=== PATIENT | female | born 1940 | race Caucasian/White ===

== ENCOUNTER 2016-12-06 10:24 | Outpatient (CLI) | payer MEDICARE | END 2016-12-06 10:25 | disposition home or self-care (01) | DX: I10 Essential (primary) hypertension (principal); Z51.81 Encounter for therapeutic drug level monitoring ==

== ENCOUNTER 2018-01-24 09:12 | Outpatient (CLI) | payer MEDICARE | END 2018-01-24 09:13 | disposition critical access hospital (66) | LOC: EMS 09:12 | PROVIDERS: ATTEND Surgery | DX: S01.511A Laceration without foreign body of lip, initial encounter (principal); M25.561 Pain in right knee; X58.XXXA Exposure to other specified factors, initial encounter; Y92.099 Unspecified place in other non-institutional residence as the place of occurrence of the external cause | CPT/HCPCS: A0425; A0429 ==

== ENCOUNTER 2018-01-24 09:29 | Emergency (ER) | payer MEDICARE ==
[2018-01-24] MEDS ORDERED: BUFFERED LIDOCAINE 10 ML SYRINGE SUBQ STA (09:35)
--- NOTE | 2018-01-24 10:00 | ED Physician Documentation ---
PD HPI HEAD INJURY - Stated complaint Stated Complaint: GLF - Chief complaint Chief Complaint: Laceration - History obtained from History obtained from: Patient - History of Present Illness Mechanism of head injury: Fell Where head injury occurred: Home Timing - onset: Today, Unknown Location of injury: Front Associated symptoms: Amnesia. No: Nausea / vomiting, Neck pain, Paresthesias, Seizures, Ear drainage, Nasal drainage Symptoms improve with: Rest Symptoms worsen with: Palpation Contributing factors: No: Anticoagulated Similar symptoms before: Has not had sx before Recently seen: Not recently seen - Additional information Additional information: 78 year-old female living at [facility] with advanced dementia has had a fall today unwitnessed she does have a small abrasion to her right knee and a laceration to her upper lip with some bleeding from her teeth. She does not recall the fall and she denies any headache nausea vomiting or dizziness or neck pain. Review of Systems Unable to obtain: Dementia Constitutional: denies: Fever Ears: denies: Ear pain Nose: denies: Congestion Throat: reports: Dental pain / toothache. denies: Sore throat Cardiac: denies: Chest pain / pressure, Palpitations Respiratory: denies: Dyspnea, Cough GI: denies: Abdominal Pain, Nausea, Vomiting : denies: Dysuria Skin: reports: Abrasion (s) (right knee), Laceration (s) (lip). denies: Rash Musculoskeletal: denies: Neck pain, Back pain, Extremity pain Neurologic: denies: Generalized weakness, Focal weakness, Numbness PD PAST MEDICAL HISTORY - Present Medications Home Medications: Ambulatory Orders Medication Instructions Recorded Confirmed Acetaminophen 500 mg PO Q4HR PRN 01/24/18 01/24/18 Lisinopril 20 mg 01/24/18 Memantine HCl [Namenda] 10 mg BID 01/24/18 01/24/18 amLODIPine [Norvasc] 5 mg 01/24/18 - Allergies Allergies/Adverse Reactions: Allergies Allergy/AdvReac Type Severity Reaction Status Date / Time No Known Drug Allergies Allergy Verified 01/24/18 09:35 PD ED PE NORMAL - Vitals Vital signs reviewed: Yes (hypertensive) - General General: No acute distress, Well developed/nourished - HEENT HEENT: PERRL, EOMI, Ears normal, Moist mucous membranes, Other (There is a small 1.5cm laceration to the right upper lip that does not involve deeper structures. ) - Neck Neck: Supple, no meningeal sign, No bony TTP - Cardiac Cardiac: RRR, No murmur - Respiratory Respiratory: No respiratory distress, Clear bilaterally - Abdomen Abdomen: Soft, Non tender - Back Back: No CVA TTP, No spinal TTP - Derm Derm: Normal color, Warm and dry, No rash - Extremities Extremities: No deformity, No edema, Other (There is an abrasion to the right patella without specific tenderness to the area. There is no effusion and the ligaments are stable to testing. ) - Neuro Neuro: Alert and oriented X 3 Eye Opening: Spontaneous Motor: Obeys Commands Verbal: Confused GCS Score: 14 - Psych Psych: Normal mood, Normal affect Results - Vitals Vitals: Vital Signs - 24 hr 01/24/18 01/24/18 09:32 10:46 Temperature 36.4 C L Heart Rate 76 70 Respiratory 18 16 Rate Blood Pressure 145/97 H 150/95 H O2 Saturation 98 96 Oxygen O2 Source Room air - Labs Labs: Laboratory Tests 01/24/18 10:08 Urine Color YELLOW Urine Clarity CLEAR Urine pH 6.5 Ur Specific [place] 1.010 Urine Protein NEGATIVE Urine Glucose (UA) NEGATIVE Urine Ketones NEGATIVE Urine Occult Blood NEGATIVE Urine Nitrite NEGATIVE Urine Bilirubin NEGATIVE Urine Urobilinogen 0.2 (NORMAL) Ur Leukocyte Esterase TRACE H Urine RBC 0-5 Urine WBC 4-5 Ur Squamous Epith Cells RARE Squamous Urine Bacteria Few Ur Microscopic Review INDICATED Urine Culture Comments INDICATED Procedures - Laceration (location) upper lip Length in cm: 1.5 Wound type: Linear, Clean Neurovascular status: Sensory intact, Motor intact, Vascular intact Anesthesia: Lidocaine 1%, With bicarb Wound Preparation: Hibiclens, Irrigated copiously NS, Wound explored, To the base Skin layer closure: Nylon, Interrupted, Size #-0 - enter number (6-0), Sutures - enter # (3) Other: Patient tolerated well, No complications, Neurovascular intact, Dressing applied Complexity: Simple PD MEDICAL DECISION MAKING - ED course Complexity details: reviewed results, re-evaluated patient, considered differential, other (discussed with nursing home assistant at [facility]) ED course: 78-year-old female with advanced dementia has had an unwitnessed fall she has loosened some of her front teeth and has a small laceration on her upper lip. She is a small abrasion to her right knee. The patient seems unfazed by these injuries with the exception of bleeding and the laceration is closed with good result. The teeth are firmly implanted and I suspect the most that will be required is soft food eating, and follow-up with her dentist. The patient is ambulating in the department without difficulty and has no other specific complaints. The patient returned to [facility] and I got a telephone call from the nursing home assistant there concerned that no imaging procedures were done. It was my opinion at the time the patient was here that imaging procedures were likely unnecessary and these were not done. - Sepsis Event Vital Signs: Vital Signs - 24 hr 01/24/18 01/24/18 09:32 10:46 Temperature 36.4 C L Heart Rate 76 70 Respiratory 18 16 Rate Blood Pressure 145/97 H 150/95 H O2 Saturation 98 96 Oxygen O2 Source Room air Departure - Departure Disposition: 01 Home, Self Care Clinical Impression: Facial laceration Qualifiers: Encounter type: initial encounter Qualified Code(s): S01.81XA - Laceration without foreign body of other part of head, initial encounter Knee abrasion Qualifiers: Encounter type: initial encounter Laterality: right Qualified Code(s): S80.211A - Abrasion, right knee, initial encounter Dental contusion Qualifiers: Encounter type: initial encounter Qualified Code(s): S00.532A - Contusion of oral cavity, initial encounter Instructions: Trauma Dental, ED Laceration Facial Sutr Tape Follow-Up: Basil Phelan MD [Primary Care Provider] - Comments: sutures should be removed in 5 days. Discharge Date/Time: 01/24/18 10:57
[2018-01-24] MEDS ORDERED: TETANUS/DIPHTHERIA/PERTUSSIS 0.5 ML SYRINGE IM ONE (10:03)
[2018-01-24 10:22] LABS: BILIRUBIN,URINE NEGATIVE (NEGATIVE); CLARITY,URINE CLEAR (CLEAR); GLUCOSE, URINE (UA) NEGATIVE (NEGATIVE); KETONES,URINE (UA) NEGATIVE (NEGATIVE); LEUKOCYTE ESTERASE, URINE TRACE (NEGATIVE); NITRITE,URINE NEGATIVE (NEGATIVE); OCCULT BLOOD,URINE NEGATIVE (NEGATIVE); PH,URINE 6.5 PH (5.0-7.5); PROTEIN,URINE NEGATIVE (NEGATIVE); UROBILINOGEN,URINE 0.2 (NORMAL) E.U./dL (NORMAL)
[2018-01-24 10:31] LABS: BACTERIA,URINE Few /HPF (None Seen); RBC,URINE 0-5 /HPF (0-5); SQUAMOUS EPITHELIAL CELL,UR RARE Squamous (<= Few)
[2018-01-24 10:47] VITALS: BP 150/95
== END 2018-01-24 10:57 | disposition home or self-care (01) ==
LOC: EDUNIT# → ED 09:29
DX: S01.81XA Laceration without foreign body of other part of head, initial encounter (principal); S80.211A Abrasion, right knee, initial encounter; S00.532A Contusion of oral cavity, initial encounter; W18.30XA Fall on same level, unspecified, initial encounter; Y92.009 Unspecified place in unspecified non-institutional (private) residence as the place of occurrence of the external cause; F03.90 Unspecified dementia, unspecified severity, without behavioral disturbance, psychotic disturbance, mood disturbance, and anxiety; Z23 Encounter for immunization
CPT/HCPCS: 12011; 81001; 81003; 87086; 90471; 99283

== ENCOUNTER 2019-05-19 09:54 | Outpatient (CLI) | payer MEDICARE | END 2019-05-19 09:55 | disposition critical access hospital (66) | LOC: EMS 09:54 | PROVIDERS: ATTEND Surgery | DX: M25.511 Pain in right shoulder (principal); M54.2 Cervicalgia | CPT/HCPCS: A0425; A0429 ==

== ENCOUNTER 2019-05-19 10:12 | Emergency (ER) | payer MEDICARE ==
--- NOTE | 2019-05-19 10:34 | ED Physician Documentation ---
PD HPI CHEST PAIN - Stated complaint Stated Complaint: R SHOULDER PAIN - Chief complaint Chief Complaint: Cardiac - History obtained from History obtained from: Patient, Caregiver (patient with dementia so not able to give much history; info mainly from caregivers, as conveyed by EMS.) - History of Present Illness Timing - onset: Today (Patient was complaining of left shoulder and left chest pain to staff this morning. She denies any at present here in the ER. She was sent in for concern of heart related pain. There is no fall or injury. She did not have any trouble breathing. No recent cough.) Timing - onset during: Light activity (getting up and dressed this morning) Timing - details: Gradual onset, Now resolved (she denies pain currently) Quality: Aching Location: Substernal, Left shoulder/arm Similar symptoms before: Has not had sx before Review of Systems Unable to obtain: Dementia Constitutional: denies: Fever Throat: denies: Sore throat Respiratory: denies: Cough GI: denies: Vomiting, Diarrhea Skin: denies: Rash PD PAST MEDICAL HISTORY - Past Medical History Cardiovascular: Hypertension Neuro: Dementia - Past Surgical History Past Surgical History: Yes HEENT: Tonsil/Adenoidectomy - Present Medications Home Medications: Ambulatory Orders Medication Instructions Recorded Confirmed Acetaminophen 500 mg PO Q4HR PRN 01/24/18 05/19/19 Lisinopril 20 mg PO DAILY 01/24/18 05/19/19 Memantine HCl [Namenda] 10 mg BID 01/24/18 05/19/19 amLODIPine [Norvasc] 5 mg PO DAILY 01/24/18 05/19/19 Codeine Phosphate/Guaifenesin 5 ml PO DAILY PRN 05/19/19 05/19/19 [Guaifen-Codeine 100-10 mg/5 ml] QUEtiapine [SEROquel] 25 mg PO BID PRN 05/19/19 05/19/19 - Allergies Allergies/Adverse Reactions: Allergies Allergy/AdvReac Type Severity Reaction Status Date / Time No Known Drug Allergies Allergy Verified 01/24/18 09:35 - Social History Does the pt smoke?: No Smoking Status: Never smoker Does the pt drink ETOH?: No Does the pt have substance abuse?: No - Immunizations Immunizations are current?: Yes PD ED PE NORMAL - Vitals Vital signs reviewed: Yes - General General: Alert and oriented X 3, No acute distress, Well developed/nourished - HEENT HEENT: Pharynx benign - Neck Neck: Supple, no meningeal sign, No adenopathy - Cardiac Cardiac: RRR, No murmur - Respiratory Respiratory: Clear bilaterally, Other (no chestwall tenderness) - Abdomen Abdomen: Soft, Non tender - Derm Derm: Normal color, Warm and dry - Extremities Extremities: No tenderness to palpate, Normal ROM s pain, No edema, No calf tenderness / cord - Neuro Neuro: No motor deficit. No: Alert and oriented X 3 (name only, with poor recollection of earlier events, c/w dementia. ) Results - Vitals Vitals: Vital Signs - 24 hr 05/19/19 05/19/19 10:16 12:54 Temperature 36.6 C 36.6 C Heart Rate 75 87 Respiratory 18 18 Rate Blood Pressure 126/90 H 141/93 H O2 Saturation 94 97 Oxygen O2 Source Room air - EKG (time done) 10:37 Rate: Rate (enter#) (71) Rhythm: NSR [place]: Normal Intervals: Normal [place] QRS: Normal Ischemia: Normal ST segments. No: ST elevation c/w ischemia, ST depression - Labs Labs: Laboratory Tests 05/19/19 05/19/19 05/19/19 10:50 10:50 10:50 WBC 5.5 RBC 3.76 L Hgb 11.6 L Hct 36.3 L MCV 96.5 MCH 30.9 MCHC 32.0 RDW 14.3 Plt Count 268 MPV 10.2 Neut # (Auto) 3.5 Lymph # (Auto) 1.2 L [place] # (Auto) 0.6 Eos # (Auto) 0.2 Baso # (Auto) 0.0 Absolute Nucleated RBC 0.00 Nucleated RBC % 0.0 Sodium 138 Potassium 3.8 Chloride 103 Carbon Dioxide 27 Anion Gap 8.0 BUN 12 Creatinine 1.1 H Estimated GFR (MDRD) 48 L Glucose 91 Calcium 9.0 Magnesium 2.0 Total Bilirubin 0.7 AST 19 ALT 14 Alkaline Phosphatase 65 Troponin I High Sens 2.9 Total Protein 7.2 Albumin 3.9 Globulin 3.3 Albumin/Globulin Ratio 1.2 Lipase 34 - Rads (name of study) chest xray Radiology: Prelim report reviewed, See rad report (no acute process) PD MEDICAL DECISION MAKING - ED course Complexity details: reviewed results, considered differential (no chest pain now and her dementia prohibits her giving character of the pain this morning. Tests are okay. No signs of significant process. ), d/w patient Departure - Departure Disposition: 01 Home, Self Care Clinical Impression: Shoulder pain, acute Qualifiers: Laterality: left Qualified Code(s): M25.512 - Pain in left shoulder Clinical Impression: (Ruled Out): Myocardial infarction Condition: Stable Record reviewed to determine appropriate education?: Yes Instructions: ED Chest Pain Atypical Unkn Cause Comments: No signs of heart or lung problems causing your discomfort this morning. It may be muscular pain. Use Tylenol 500 mg every 6 hours if needed for pains. Follow-up with your primary care if recurring or continued over the next several days or other symptoms develop as well. Discharge Date/Time: 05/19/19 15:08
[2019-05-19 10:56] LABS: BASOPHILS % (AUTO) 0.4 %; EOSINOPHILS # (AUTO) 0.2 10^3/uL (0.0-0.7); EOSINOPHILS % (AUTO) 3.7 %; HGB - HEMOGLOBIN 11.6 g/dL (12.0-16.0); LYMPHOCYTES # (AUTO) 1.2 10^3/uL (1.5-3.5); LYMPHOCYTES % (AUTO) 21.8 %; MEAN CORPUSCULAR HEMOGLOBIN 30.9 pg (27.0-31.0); MEAN CORPUSCULAR VOLUME 96.5 fL (81.0-99.0); MEAN PLATELET VOLUME 10.2 fL (7.9-10.8); MONOCYTES # (AUTO) 0.6 10^3/uL (0.0-1.0); MONOCYTES % (AUTO) 10.8 %; NEUTROPHILS # (AUTO) 3.5 10^3/uL (1.5-6.6); NEUTROPHILS % (AUTO) 63.3 %; PLT - PLATELET COUNT 268 10^3/uL (130-450); RED BLOOD COUNT 3.76 10^6/uL (4.20-5.40); RED CELL DISTRIBUTION WIDTH 14.3 % (12.0-15.0); WHITE BLOOD COUNT 5.5 x10^3/uL (4.8-10.8)
[2019-05-19 11:09] LABS: ALBUMIN 3.9 g/dL (3.2-5.5); ALBUMIN/GLOBULIN RATIO 1.2 (1.0-2.2); BILIRUBIN,TOTAL 0.7 mg/dL (0.2-1.0); CREATININE 1.1 mg/dL (0.4-1.0); TOTAL PROTEIN 7.2 g/dL (6.7-8.2)
--- NOTE | 2019-05-19 11:50 | XRAY Report ---
Reason: chest pain Procedure Date: 05/19/2019 Accession Number: [id number] / [id number] Procedure: XR - Chest 1 View X-Ray CPT Code: 96932 FULL RESULT: EXAM: CHEST RADIOGRAPHY EXAM DATE: 05/19/2019 11:05 AM. CLINICAL HISTORY: Right shoulder pain. Chest pain. COMPARISON: None. TECHNIQUE: 1 view. FINDINGS: Lungs/Pleura: No focal opacities evident. No pleural effusion. No pneumothorax. Mediastinum: Within exam limitations, the cardiomediastinal contour is normal. Other: Lobulated appearance to the hemidiaphragms is seen likely due to underlying eventration. IMPRESSION: No acute cardiopulmonary abnormality demonstrated. RADIA
[2019-05-19 12:55] VITALS: BP 141/93
== END 2019-05-19 15:08 | disposition home or self-care (01) ==
LOC: EDUNIT# → ED 10:12
DX: M25.512 Pain in left shoulder (principal); R07.89 Other chest pain; I10 Essential (primary) hypertension; F03.90 Unspecified dementia, unspecified severity, without behavioral disturbance, psychotic disturbance, mood disturbance, and anxiety
CPT/HCPCS: 36415; 71045; 80053; 83690; 83735; 84484; 85025; 93005; 99284

== ENCOUNTER 2019-07-12 07:00 | Outpatient (CLI) | payer MEDICARE | END 2019-07-12 23:59 | disposition home or self-care (01) | LOC: LAB.R 07:00 | PROVIDERS: ATTEND Family Medicine | DX: R82.81 Pyuria (principal) | CPT/HCPCS: 87086; 87181 ==

== ENCOUNTER 2019-07-12 09:19 | Outpatient (CLI) | payer MEDICARE ==
[2019-07-12 13:20] LABS: CALCIUM 9.3 mg/dL (8.5-10.3); MAGNESIUM 2.1 mg/dL (1.7-2.8)
== END 2019-07-12 23:59 | disposition home or self-care (01) ==
LOC: LAB.WCP 09:19
PROVIDERS: ATTEND Family Medicine
DX: R82.81 Pyuria (principal); R45.1 Restlessness and agitation; F03.90 Unspecified dementia, unspecified severity, without behavioral disturbance, psychotic disturbance, mood disturbance, and anxiety
CPT/HCPCS: 36415; 80048; 82607; 83735; 83921; 84443; 87086; 87181

== ENCOUNTER 2020-06-11 19:13 | Outpatient (CLI) | payer MEDICARE | END 2020-06-11 19:14 | disposition critical access hospital (66) | LOC: EMS 19:13 | PROVIDERS: ATTEND Surgery | DX: M25.552 Pain in left hip (principal); W18.39XA Other fall on same level, initial encounter; Y92.098 Other place in other non-institutional residence as the place of occurrence of the external cause | CPT/HCPCS: A0425; A0429 ==

== ENCOUNTER 2020-06-11 19:29 | Inpatient (IN) | payer MEDICARE ==
[2020-06-11] MEDS ORDERED: ACETAMINOPHEN 325 MG TABLET PO STA (19:54)
--- NOTE | 2020-06-11 20:04 | ED Physician Documentation ---
History of Present Illness - Stated complaint Stated Complaint: GLF/ L HIP PX/ FEVER - Chief complaint Chief Complaint: Fever - History obtained from History obtained from: EMS - History of Present Illness Timing: Prior to arrival - Additonal information Additional information: 80-year-old female is brought into the emergency department via EMS from [facility] where she was noted to have a fall this afternoon onto the left hip. She has also developed a new fever of 99.5 at the care facility today. History is difficult to obtain from the patient she has baseline dementia and is not able to appropriately answer questions. On exam in the room she has some guarding with abdominal palpation. She also grabs at the left hip and thigh when the leg is rotated. There is no shortening of the leg. Past medical history includes dementia, hypertension Patient has a POLST form that indicates she is a DNAR Patient is not anticoagulated; no hx of history of atrial fibrillation Review of Systems Unable to obtain: Dementia Constitutional: reports: Fever Musculoskeletal: reports: Extremity pain (left hip/leg), Joint pain PD PAST MEDICAL HISTORY - Past Medical History Past Medical History: Yes Cardiovascular: Hypertension Neuro: Dementia - Past Surgical History Past Surgical History: Yes HEENT: Tonsil/Adenoidectomy - Present Medications Home Medications: Ambulatory Orders Medication Instructions Recorded Confirmed Acetaminophen 500 mg PO Q4HR PRN 01/24/18 05/19/19 Memantine HCl [Namenda] 10 mg BID 01/24/18 05/19/19 amLODIPine [Norvasc] 5 mg PO DAILY 01/24/18 05/19/19 lisinopriL [Lisinopril] 20 mg PO DAILY 01/24/18 05/19/19 Codeine Phosphate/Guaifenesin 5 ml PO DAILY PRN 05/19/19 05/19/19 [Guaifen-Codeine 100-10 mg/5 ml] QUEtiapine [SEROquel] 25 mg PO BID PRN 05/19/19 05/19/19 - Allergies Allergies/Adverse Reactions: Allergies Allergy/AdvReac Type Severity Reaction Status Date / Time No Known Drug Allergies Allergy Verified 06/11/20 19:53 - Social History Does the pt smoke?: No Smoking Status: Never smoker Does the pt drink ETOH?: No Does the pt have substance abuse?: No - Immunizations Immunizations are current?: Yes - POLST Patient has POLST: Yes PD ED PE EXPANDED - General General: No acute distress, Other (quiet, but allows limited evaluation and touching) - HEENT HEENT: Atraumatic, PERRL, EOMI, Moist mucous membranes - Eyes Eyes: PERRL - Neck Neck: Supple w/out meningeal sx, No tenderness - Cardiac Cardiac: Irregularly irregular, Murmur Present, Radial strong equal, Cap refill < 2 sec. No: Pedal strong equal (1+ distally) - Respiratory Respiratory: Clear to ausultation mejia. No: Distress, Labored - Abdomen Abdomen: Normal Bowel sounds. No: Tender to palpation (Generalized abdominal tenderness with guarding. No rebound. Nonfocal) - Back Back: Normal exam. No: Vertebral tenderness - Extremities Extremities: Left hip (Pain with both internal and external rotation of the hip. Patient is grabbing at the left thigh and leg with any movement. No obvious shortening or swelling.) - Neuro Neuro: Confused, Normal speech - GCS Eye Opening: To Voice Motor: Localizes to Pain Verbal: Confused Total: 12 Results - Vitals Vitals: Vital Signs - 24 hr 06/11/20 06/11/20 19:35 21:07 Temperature 37.1 C Heart Rate 99 99 Respiratory 22 24 Rate Blood Pressure 158/89 H 174/103 H O2 Saturation 98 100 Oxygen O2 Source Room air - EKG (time done) 204 Rate: Rate (enter#) (95) Rhythm: Atrial flutter, Atrial fibrillation [place]: Normal Intervals: Prolonged QT QRS: Normal Compare to prior EKG: Changed from prior EKG (previous showed NSR) - Labs Labs: Laboratory Tests 06/11/20 06/11/20 06/11/20 19:45 19:45 19:45 WBC 9.5 RBC 3.94 L Hgb 12.7 Hct 37.1 MCV 94.2 MCH 32.2 H MCHC 34.2 RDW 13.9 Plt Count 228 MPV 10.7 Neut # (Auto) 7.3 H Lymph # (Auto) 1.1 L [place] # (Auto) 1.0 Eos # (Auto) 0.0 Baso # (Auto) 0.0 Absolute Nucleated RBC 0.00 Nucleated RBC % 0.0 Sodium 134 L Potassium 3.5 Chloride 94 L Carbon Dioxide 22 Anion Gap 18.0 H BUN 16 Creatinine 1.2 H Estimated GFR (MDRD) 43 L Glucose 127 H Lactic Acid 2.2 Calcium 9.2 Total Bilirubin 0.7 AST 29 ALT 19 Alkaline Phosphatase 68 Troponin I High Sens Total Protein 7.8 Albumin 4.2 Globulin 3.6 Albumin/Globulin Ratio 1.2 Urine Color Urine Clarity Urine pH Ur Specific [place] Urine Protein Urine Glucose (UA) Urine Ketones Urine Occult Blood Urine Nitrite Urine Bilirubin Urine Urobilinogen Ur Leukocyte Esterase Urine RBC Urine WBC Ur Squamous Epith Cells Urine Bacteria Urine Culture Comments 06/11/20 06/11/20 19:45 20:10 WBC RBC Hgb Hct MCV MCH MCHC RDW Plt Count MPV Neut # (Auto) Lymph # (Auto) [place] # (Auto) Eos # (Auto) Baso # (Auto) Absolute Nucleated RBC Nucleated RBC % Sodium Potassium Chloride Carbon Dioxide Anion Gap BUN Creatinine Estimated GFR (MDRD) Glucose Lactic Acid Calcium Total Bilirubin AST ALT Alkaline Phosphatase Troponin I High Sens 10.5 Total Protein Albumin Globulin Albumin/Globulin Ratio Urine Color YELLOW Urine Clarity CLEAR Urine pH 6.5 Ur Specific [place] 1.025 Urine Protein NEGATIVE Urine Glucose (UA) NEGATIVE Urine Ketones 15 H Urine Occult Blood TRACE-INTA Urine Nitrite NEGATIVE Urine Bilirubin NEGATIVE Urine Urobilinogen 0.2 (NORMAL) Ur Leukocyte Esterase NEGATIVE Urine RBC 0-5 Urine WBC 0-3 Ur Squamous Epith Cells RARE Squamous Urine Bacteria None Seen Urine Culture Comments NOT INDICATED - Rads (name of study) femur Radiology: Final report received (Probable impacted left femoral neck fracture which is incompletely characterized) cxr Radiology: Final report received (No acute cardiopulmonary findings) CT abd Radiology: Final report received (Impacted angulated fracture of the left femoral neck. No acute intra-abdominal findings. Normal appendix. Mild aortic atherosclerosis. Probable atelectasis at the lung bases although aspiration infection cannot be excluded) PD MEDICAL DECISION MAKING - ED course Complexity details: reviewed results, re-evaluated patient, considered differential, d/w patient ED course: 80-year-old female was brought into the emergency department from her care facility for evaluation of fever as well as a new fall this afternoon where she is guarding her abdomen and left hip. She is a DO NOT RESUSCITATE. She is demented at baseline therefore history is difficult to obtain. Not anticoagulated. - X-ray of the left femur does show an impacted angulated left femur fracture. I have called on-call orthopedic Dr. Tadeo Rodriguez who agrees to see and evaluate the patient in the a.m. for surgical evaluation. He does request patient remain n.p.o. overnight. However given the history of dementia hypertension and new atrial fib flutter he is requesting medical hospitalist to admit. - 2124: I spoke with Dr. Navarro [facility] hospitalist who is agreed to bring the patient in for further evaluation and management of her hypertension, diabetes as well as fib flutter. Departure - Departure Disposition: 66 [facility] DC/Xfer Clinical Impression: Closed left femoral fracture Qualifiers: Encounter type: initial encounter Femur location: other head and neck Qualified Code(s): S72.092A - Other fracture of head and neck of left femur, initial encounter for closed fracture Dementia Qualifiers: Dementia type: unspecified type Dementia behavioral disturbance: without behavioral disturbance Qualified Code(s): F03.90 - Unspecified dementia without behavioral disturbance Atrial fibrillation Qualifiers: Atrial fibrillation type: unspecified Qualified Code(s): I48.91 - Unspecified atrial fibrillation
[2020-06-11 20:05] LABS: BASOPHILS % (AUTO) 0.2 %; HGB - HEMOGLOBIN 12.7 g/dL (12.0-16.0); LYMPHOCYTES # (AUTO) 1.1 10^3/uL (1.5-3.5); LYMPHOCYTES % (AUTO) 11.6 %; MEAN CORPUSCULAR HEMOGLOBIN 32.2 pg (27.0-31.0); MEAN CORPUSCULAR HGB CONC 34.2 g/dL (32.0-36.0); MEAN CORPUSCULAR VOLUME 94.2 fL (81.0-99.0); MEAN PLATELET VOLUME 10.7 fL (7.9-10.8); NEUTROPHILS # (AUTO) 7.3 10^3/uL (1.5-6.6); NEUTROPHILS % (AUTO) 76.7 %; PLT - PLATELET COUNT 228 10^3/uL (130-450); RED BLOOD COUNT 3.94 10^6/uL (4.20-5.40); RED CELL DISTRIBUTION WIDTH 13.9 % (12.0-15.0); WHITE BLOOD COUNT 9.5 x10^3/uL (4.8-10.8)
[2020-06-11 20:14] LABS: ALBUMIN 4.2 g/dL (3.2-5.5); ALBUMIN/GLOBULIN RATIO 1.2 (1.0-2.2); BILIRUBIN,TOTAL 0.7 mg/dL (0.2-1.0); CALCIUM 9.2 mg/dL (8.5-10.3); CREATININE 1.2 mg/dL (0.4-1.0); TOTAL PROTEIN 7.8 g/dL (6.7-8.2)
[2020-06-11 20:36] LABS: BILIRUBIN,URINE NEGATIVE (NEGATIVE); GLUCOSE, URINE (UA) NEGATIVE (NEGATIVE); KETONES,URINE (UA) 15 mg/dL (NEGATIVE); LEUKOCYTE ESTERASE, URINE NEGATIVE (NEGATIVE); NITRITE,URINE NEGATIVE (NEGATIVE); OCCULT BLOOD,URINE TRACE-INTA (NEGATIVE); PH,URINE 6.5 PH (5.0-7.5); PROTEIN,URINE NEGATIVE (NEGATIVE); UROBILINOGEN,URINE 0.2 (NORMAL) E.U./dL (NORMAL)
--- NOTE | 2020-06-11 20:44 | XRAY Report ---
PROCEDURE: Femur 2V LT INDICATIONS: fall; r/o fx TECHNIQUE: 2 views of the femur were acquired. COMPARISON: None. FINDINGS: Bones: There is likely an impacted fracture of the left femoral neck which is incompletely characteri zed given patient positioning. The femoral diaphysis of the distal femur are intact. Soft tissues: No suspicious soft tissue calcifications or masses. IMPRESSION: Probable impacted left femoral neck fracture which is incompletely characterized. Reviewed by: Janis Astorga MD on 06/11/2020 8:43 PM PST Approved by: Janis Astorga MD on 06/11/2020 8:43 PM PST Station ID: [id number]
[2020-06-11] MEDS ORDERED: IOVERSOL 320 100 ML VIAL IVP ONE ×2 (20:45→21:13)
--- NOTE | 2020-06-11 20:45 | XRAY Report ---
PROCEDURE: Chest 1 View X-Ray INDICATIONS: chest pain TECHNIQUE: One view of the chest was acquired. COMPARISON: Single view the chest dated 05/19/2019 FINDINGS: Surgical changes and devices: None. Lungs and pleura: No pleural effusions or pneumothorax. Lungs are clear. Mediastinum: Mediastinal contours appear normal. Heart size is normal. Bones and chest wall: No suspicious bony lesions. Overlying soft tissues appear unremarkable. IMPRESSION: No acute cardiopulmonary findings. Reviewed by: Janis Astorga MD on 06/11/2020 8:43 PM PST Approved by: Janis Astorga MD on 06/11/2020 8:43 PM [facility] Station ID: [id number]
[2020-06-11 21:06] LABS: BACTERIA,URINE None Seen /HPF (None Seen); CLARITY,URINE CLEAR (CLEAR); RBC,URINE 0-5 /HPF (0-5); SQUAMOUS EPITHELIAL CELL,UR RARE Squamous (<= Few)
--- NOTE | 2020-06-11 21:16 | CT Report ---
PROCEDURE: Abdomen/Pelvis W INDICATIONS: fever; abdomianl pain CONTRAST: IV CONTRAST: Optiray 320 ml: 80 PO CONTRAST: *NO PO CONTRAST TECHNIQUE: After the administration of intravenous contrast, 5 mm thick sections acquired from the diaphragms to the symphysis. 5 mm thick coronal and sagittal reformats were acquired. For radiation dose reducti on, the following was used: automated exposure control, adjustment of mA and/or kV according to latosha ent size. COMPARISON: None. FINDINGS: Image quality: Excellent. ABDOMEN: Lung bases: Atelectasis is present in the dependent lungs bilaterally. No pleural effusion. Heart is mildly enlarged. Solid organs: Liver and spleen are normal in size and enhancement. Gallbladder is unremarkable Jluis iary system is non dilated. Pancreas enhances normally. No adrenal nodules. Kidneys demonstrate no rmal size and enhancement, without hydronephrosis. A low density cyst is present within the midpole of the right kidney. Peritoneum and bowel: Bowel loops demonstrate normal wall thickness and caliber. The appendix is thi n-walled and gas-filled. There are scattered diverticular outpouchings throughout the sigmoid colon. No mucosal thickening or pericolonic fat stranding. No free fluid or air. Nodes and vessels: No retroperitoneal or mesenteric adenopathy by size criteria. Aorta and inferior vena cava are normal in size. Scattered atheromatous calcifications are noted throughout the abdomi nal aorta. Miscellaneous: No ventral hernias. PELVIS: Genitourinary: Bladder wall thickness is normal. Miscellaneous: No inguinal hernias or adenopathy. Bones: There is an impacted, angulated fracture of the left femoral neck. No other fractures or dislo cations. Severe degenerative changes are present throughout the lumbar spine. No compression deformit ies. IMPRESSION: 1. Impacted angulated fracture of the left femoral neck. 2. No acute intra-abdominal findings. Normal appendix. 3. Mild aortic atherosclerosis. 4. Probable atelectasis at the lung bases although aspiration/infection cannot be excluded. Reviewed by: Janis Astorga MD on 06/11/2020 9:14 PM PST Approved by: Janis Astorga MD on 06/11/2020 9:14 PM PST Station ID: [id number]
[2020-06-11] MEDS ORDERED: ONDANSETRON ODT 4 MG TABLET TL PRN (21:23)
[2020-06-11] MEDS ORDERED: MORPHINE 2 MG/ML CARPUJECT IVP PRN (21:23)
[2020-06-11] MEDS ORDERED: ACETAMINOPHEN 325 MG TABLET PO PRN (21:23)
[2020-06-11] MEDS ORDERED: ONDANSETRON 4 MG/2 ML VIAL IVP PRN ×2 (21:23→21:43)
[2020-06-11] MEDS ORDERED: oxyCODONE 5 MG TABLET PO PRN ×2 (21:23→21:43)
--- NOTE | 2020-06-11 21:28 | HISTORY & PHYSICAL EXAMINATION ---
Chief Complaint - Chief Complaint Chief Complaint: Left leg pain History of Present Illness - Admitted From Admitted From:: [facility] - History Obtained From Records Reviewed: Yes History obtained from: ER Physician, Son (Richard), EMR Exam Limitations: Patient has dementia and is unable to provide a history. - History of Present Illness HPI Comment/Other: This is a 80-year-old female with a past medical history significant for advanced dementia, hypertension who presents today from [facility] memory care unit after she had a fall this afternoon as well as a low-grade temperature of 99.5F. History is obtained from the emergency department provider, EMR and the patient's son. The patient has advanced dementia and is unable to provide a history. The patient's son, Richard, lives in [place] but he was able to see the patient last week. He states she has had dementia for a few years now and has had a rapid decline. He states that she has been more sleepy over the past week or so and today he was informed by [facility] that she fell this afternoon. He states that at baseline, his mother will recognize him and the family but she is not able to participate in a meaningful conversation like she has been in the past. She has very poor memory and will forget things after 10 seconds. He does not believe that she knows where she lives and she deftly does not know the year or month. He reports she may have had a mini stroke a few years ago otherwise is pretty healthy except for dementia and hypertension. He does not believe that she has any history of coronary artery disease, diabetes, strokes. She has never complained of chest pain or dyspnea. He states she ambulates independently and is pretty active from a physical standpoint. She does have a POLST form which states that she is a DNR with limited interventions and focus on comfort. He confirms that she is a DNR. Patient does complain of left leg pain and will grimace and shout out in pain whenever her left lower extremity is examined. He has not answer any of my other questions and is unable to provide a meaningful history. In the emergency department, she is found to be afebrile temperature of 37.1 C. Her heart rate was in the 90s. Her blood pressure was 158/89. She was tachypneic with a respiratory rate of 22 and saturating 98% on room air. Her labs are significant for an anion gap of 18 and a creatinine of 1.2. Lactic acid was 2.2. Troponin was within normal limits. Urinalysis was unremarkable. Left hip x-rays was concerning for a left femoral neck fracture. This was confirmed on CT of the abdomen and pelvis. This was discussed with orthopedic surgery who recommended admission and therefore medicine was consulted. History - Past Medical History Cardiovascular: reports: Hypertension Neuro: reports: Dementia MRSA Hx?: No - Past Surgical History HEENT: reports: Tonsil/Adenoidectomy - Family & Social History Family History Comment/Other: Unable to obtain family history due to the patient's dementia. Living arrangement: Assisted living Social History Notes: Patient resides at [facility]. Her son Richard is the POA. - POLST Patient has POLST: Yes POLST Status: DNR Meds/Allgy - Home Medications Home Medications: Ambulatory Orders Medication Instructions Recorded Confirmed Acetaminophen 500 mg PO Q4HR PRN 01/24/18 05/19/19 Memantine HCl [Namenda] 10 mg BID 01/24/18 05/19/19 amLODIPine [Norvasc] 5 mg PO DAILY 01/24/18 05/19/19 lisinopriL [Lisinopril] 20 mg PO DAILY 01/24/18 05/19/19 Codeine Phosphate/Guaifenesin 5 ml PO DAILY PRN 05/19/19 05/19/19 [Guaifen-Codeine 100-10 mg/5 ml] QUEtiapine [SEROquel] 25 mg PO BID PRN 05/19/19 05/19/19 - Allergies Allergies/Adverse Reactions: Allergies Allergy/AdvReac Type Severity Reaction Status Date / Time No Known Drug Allergies Allergy Verified 06/11/20 19:53 Review of Systems - Musculoskeletal Musculoskeletal: reports: Limited range of motion, Joint pain - All Other Systems All Other Systems: reports: Other (Unable to obtain review of systems due to her advanced dementia.) Prior Level of Functionality: She resides at [facility] due to her advanced dementia. She ambulates independently without any trust administrative assistant devices per her son. Exam - Vital Signs Vital Signs: Vital Signs x48h Temp Pulse Resp BP Pulse Ox 06/11/20 21:07 99 24 174/103 H 100 06/11/20 19:35 37.1 C 99 22 158/89 H 98 - Physical Exam General Appearance: positive: Mild distress, Lethargic, Other (Appears comfortable in bed with her eyes closed. She will answer occasional questions but will keep her eyes closed the whole time. She will grimace in pain and open her eyes when her left lower extremity is examined.) Eyes Bilateral: positive: Normal inspection, Conjunctivae nml ENT: positive: ENT inspection nml Neck: positive: Nml inspection Respiratory: positive: No respiratory distress. negative: Wheezes, Rales Cardiovascular: positive: Regular rate & rhythm, Extrasystoles. negative: Ta chycardia, Bradycardia, Systolic murmur Abdomen: positive: Non-tender, No distention. negative: Tenderness Skin: positive: Warm, Dry Extremities: positive: No pedal edema, Other (Tender to palpation over the medial aspect of the left hip. No ecchymosis or edema. Left lower extremity is externally rotated.) Neurologic/Psychiatric: positive: Disoriented to person, Other (No focal deficits on exam.). negative: Disoriented to place, Disoriented to time, Facial droop, Slurred/abnml speech Conclusion/Plan - Problem List (1) Fracture of femoral neck, left, closed Conclusion/Plan: This is evident on imaging and occurred after a fall this afternoon. We will make her n.p.o. at midnight for surgical intervention tomorrow. I did discuss with the son given she is a DNR with limited interventions regarding the need for surgical intervention. He would like to discuss with the surgeon and family before definitively proceeding with surgery. Pain control with morphine and Toradol as needed. She will need PT and OT postoperatively. Social work consult for disposition planning. Qualifiers: Encounter type: initial encounter Qualified Code(s): S72.002A - Fracture of unspecified part of neck of left femur, initial encounter for closed fracture (2) Preop examination Conclusion/Plan: Patient is unable to provide any meaningful history for preop examination. It appears she was independent with his activity prior to her fall and she never reported chest pain or dyspnea to her family. She has no reported history of coronary artery disease, diabetes. There is a possible history of a strokelike event quite a few years ago. Her EKG today does show atrial flutter but she is now in a sinus rhythm on telemetry. This is rate controlled. There is no obvious murmur on exam. At this time, she is medically optimized for surgical intervention. We will start her on beta-emmy given the atrial flutter. Revised cardiac risk index for perioperative cardiac event puts her at class I risk with 3.9% chance of a 30-day risk of , PA, or cardiac arrest. Her Mehta perioperative risk for myocardial infarction is 1.6% (3) Atrial flutter, paroxysmal Conclusion/Plan: Initial EKG appears to be atrial flutter which is new compared to prior EKG. She is now in a sinus rhythm with PVCs on telemetry. She is rate controlled. We will started on metoprolol 25 mg twice daily. Monitor on telemetry. We will check a TSH. Optimize electrolytes. 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 She reportedly had low-grade fevers at the memory care unit but she is afebrile here. Her x-ray does not reveal any obvious infiltrate. We will put her on appropriate infection precautions. We will monitor her respiratory status closely. (5) Hypertension Conclusion/Plan: She is currently hypertensive with systolic in the 160s. We will start her on metoprolol this evening given the atrial flutter. We will resume her home and hypertensives once the dosing is confirmed by pharmacy. (6) Dementia Conclusion/Plan: She will be at risk for postop delirium given her spine dementia. We will resume her home medications once the dose is confirmed by pharmacy. Delirium precautions. We will attempt to limit the use of narcotics. Qualifiers: Dementia type: unspecified type Dementia behavioral disturbance: without behavioral disturbance Qualified Code(s): F03.90 - Unspecified dementia without behavioral disturbance - Lab Results Lab results reviewed: Yes Fish Bones: 06/11/20 19:45 06/11/20 19:45 - Diagnostic Imaging Results Diagnostic Imaging Results: positive: Final report reviewed - EKG Results EKG Interpreted Independently: Yes EKG Comparison: Changed from prior EKG EKG Findings: Her EKG shows atrial flutter without any obvious ST segment changes. Her QTC is prolonged at 512. The atrial flutter is new compared to prior EKG. Core Measures - Anticipated LOS I expect patient to be DC'd or transferred within 96 hours.: Yes - Issues Hospital Issues and Management Plan: 80-year-old female with advanced dementia presents after a fall and found to have a left femoral neck fracture. She will be admitted for pain control and likely intervention with orthopedic surgery. - DVT/VTE - Prophylaxis VTE/DVT Device ordered at admit?: Yes VTE/DVT Prophylaxis med ordered at admit?: Yes
[2020-06-11] MEDS ORDERED: HYDROmorphone 0.5 MG/0.5 ML SYRINGE IVP PRN (21:43)
[2020-06-11] MEDS ORDERED: LACTATED RINGERS 1,000 ML IV SCH (22:00)
[2020-06-11 22:01] LABS: INR 1.2 (0.8-1.2)
[2020-06-11 22:22] LABS: C. PNEUMONIAE- RESP PCR PANEL NOT DETECTED
[2020-06-11] MEDS: LACTATED RINGERS 1,000 ML IV SCH (22:40)
[2020-06-12] MEDS ORDERED: SODIUM CHLORIDE FLUSH 0.9% 10 ML SYRINGE IVP SCH (01:00)
[2020-06-12] MEDS: METOPROLOL TARTRATE 25 MG TABLET PO SCH ×3 (01:08→22:28)
[2020-06-12] MEDS: ACETAMINOPHEN 500 MG TABLET PO SCH ×4 (01:10→19:28)
[2020-06-12] MEDS: KETOROLAC 15 MG/ML VIAL IVP PRN ×3 (01:12→22:35)
[2020-06-12 06:01] LABS: BASOPHILS % (AUTO) 0.1 %; EOSINOPHILS % (AUTO) 0.2 %; HGB - HEMOGLOBIN 11.5 g/dL (12.0-16.0); LYMPHOCYTES # (AUTO) 1.4 10^3/uL (1.5-3.5); LYMPHOCYTES % (AUTO) 17.2 %; MEAN CORPUSCULAR HEMOGLOBIN 31.3 pg (27.0-31.0); MEAN CORPUSCULAR HGB CONC 33.5 g/dL (32.0-36.0); MEAN CORPUSCULAR VOLUME 93.2 fL (81.0-99.0); MEAN PLATELET VOLUME 10.5 fL (7.9-10.8); MONOCYTES # (AUTO) 0.9 10^3/uL (0.0-1.0); MONOCYTES % (AUTO) 11.2 %; NEUTROPHILS # (AUTO) 5.9 10^3/uL (1.5-6.6); NEUTROPHILS % (AUTO) 71.1 %; PLT - PLATELET COUNT 191 10^3/uL (130-450); RED BLOOD COUNT 3.68 10^6/uL (4.20-5.40); WHITE BLOOD COUNT 8.3 x10^3/uL (4.8-10.8)
[2020-06-12 06:15] LABS: CALCIUM 8.9 mg/dL (8.5-10.3); CREATININE 1.2 mg/dL (0.4-1.0); PHOSPHORUS 4.8 mg/dL (2.5-4.6)
[2020-06-12] MEDS: PANTOPRAZOLE 40 MG TABLET PO SCH (06:38)
[2020-06-12] MEDS ORDERED: ROPIVACAINE 0.2% PF 20ML VIAL EP SCH (10:00)
--- NOTE | 2020-06-12 10:28 | CONSULTATION NOTE ---
Referring Provider Consult Date: 06/12/20 Chief Complaint - Chief Complaint Chief Complaint: left hip pain History of Present Illness - Admitted From Admitted From:: ER - History of Present Illness HPI Comment/Other: The patient was seen on [facility] with regards to a chief complaint of LEFT hip pain. The patient sustained a UNWITNESSED fall onto their LEFT . Simple mechanical fall. Unable to weight bear at the scene. The patient has advanced dementia and is unable to provide any history. The patient normally ambulates WITH the use of a walking aid, and IS NOT a community ambulator. Previous DEXA: 2016 osteopenia. Previous osteoporotic or fragility fracture: none. Previous treatment for osteoporosis: none. Patient has tested positive for COVID-19 History - Past Medical History Cardiovascular: reports: Hypertension Neuro: reports: Dementia MRSA Hx?: No - Past Surgical History HEENT: reports: Tonsil/Adenoidectomy - Family & Social History Family History Comment/Other: Unable to obtain family history due to the patient's dementia. Living arrangement: Assisted living Social History Notes: Patient resides at [facility]. Her son Richard is the POA. - POLST Patient has POLST: Yes POLST Status: DNR Meds/Allgy - Home Medications Home Medications: Ambulatory Orders Medication Instructions Recorded Confirmed Acetaminophen 500 mg PO Q4HR PRN 01/24/18 05/19/19 Memantine HCl [Namenda] 10 mg BID 01/24/18 05/19/19 amLODIPine [Norvasc] 5 mg PO DAILY 01/24/18 05/19/19 lisinopriL [Lisinopril] 20 mg PO DAILY 01/24/18 05/19/19 Codeine Phosphate/Guaifenesin 5 ml PO DAILY PRN 05/19/19 05/19/19 [Guaifen-Codeine 100-10 mg/5 ml] QUEtiapine [SEROquel] 25 mg PO BID PRN 05/19/19 05/19/19 - Allergies Allergies/Adverse Reactions: Allergies Allergy/AdvReac Type Severity Reaction Status Date / Time No Known Drug Allergies Allergy Verified 06/11/20 19:53 Review of Systems - Other Findings Other Findings: Patient has advanced dementia and is unable to perform ROS Exam - Vital Signs Vital Signs: Vital Signs x48h Temp Pulse Resp BP Pulse Ox 06/12/20 05:00 37.0 C 59 L 18 158/99 H 94 - Physical Exam General Appearance: positive: Other (Sedated, not rousable) Eyes Bilateral: positive: Normal inspection ENT: positive: ENT inspection nml Neck: positive: Nml inspection Respiratory: positive: Chest non-tender Cardiovascular: positive: Other (extremities warm and well perfused) Peripheral Pulses: positive: 2+ Abdomen: positive: Non-tender Extremities: positive: Other (left LE short and externally rotated. facial grimace with logroll of LE. tender at left hip) Neurologic/Psychiatric: positive: Disoriented to person, Disoriented to place, Disoriented to time Conclusion/Plan - Diagnosis Diagnosis: displaced left femoral neck fracture - Plan Plan: the patient has sustained a hip fracture. Surgical intervention is indicated. I have discussed this with the patients next of kin. We have discussed operative and non-operative management today. We have discussed the risks of surgery in general including but not limited to the risk of anesthesia, infection, blood loss, and nerve or blood vessel damage. We have also discussed the risk of intra-operative fracture, ongoing pain, and leg length discrepancy. We have di scussed strategies for prevention of infection, perioperative pain management and prevention of blood clots. After discussion of the risks and benefits of surgery, the patient's son and stepson have agreed to proceed with left hip hemiarthroplasty. No guarantees have been made. All questions have been answered. We will plan to proceed with surgery once medically cleared. Consent has been obtained via telephone and site has been marked - Lab Results Lab results reviewed: Yes Fish Bones: 06/12/20 05:20 06/12/20 05:20 - Diagnostic Imaging Results Diagnostic Imaging Results: positive: Read independently (displaced left femoral neck fracture)
--- NOTE | 2020-06-12 10:50 | ANESTHESIA ---
Pre-Anesthesia VS, & Labs - Diagnosis Diagnosis displaced left femoral neck fracture - Procedure Left hip cezar-arthroplasty Vital Signs: Temp Pulse Resp BP Pulse Ox 37.0 C 59 L 18 158/99 H 94 06/12/20 05:00 06/12/20 05:00 06/12/20 05:00 06/12/20 05:00 06/12/20 05:00 Height: 5 ft 3 in Weight (kg): 59 kg Body Mass Index: 23.0 BMI Classification: Healthy weight - NPO >8 hours - Is Patient ?: No - Lab Results Current Lab Results: Laboratory Tests 06/12/20 05:20: TSH 2.31 06/12/20 05:20: Sodium 134 L, Potassium 3.6, Chloride 101, Carbon Dioxide 23, Anion Gap 10.0, BUN 18, Creatinine 1.2 H, Estimated GFR (MDRD) 43 L, Glucose 104 H, Calcium 8.9, Phosphorus 4.8 H, Magnesium 2.0 06/12/20 05:20: WBC 8.3, RBC 3.68 L, Hgb 11.5 L, Hct 34.3 L, MCV 93.2, MCH 31.3 H, MCHC 33.5, RDW 14.0, Plt Count 191, MPV 10.5, Neut # (Auto) 5.9, Lymph # (Auto) 1.4 L, Mason # (Auto) 0.9, Eos # (Auto) 0.0, Baso # (Auto) 0.0, Absolute Nucleated RBC 0.00, Nucleated RBC % 0.0 06/11/20 23:30: Lactic Acid 1.4 06/11/20 19:45: PT 13.0 H, INR 1.2 06/11/20 19:45: Troponin I High Sens 10.5 06/11/20 19:45: Lactic Acid 2.2 06/11/20 19:45: Sodium 134 L, Potassium 3.5, Chloride 94 L, Carbon Dioxide 22, Anion Gap 18.0 H, BUN 16, Creatinine 1.2 H, Estimated GFR (MDRD) 43 L, Glucose 127 H, Calcium 9.2, Total Bilirubin 0.7, AST 29, ALT 19, Alkaline Phosphatase 68, Total Protein 7.8, Albumin 4.2, Globulin 3.6, Albumin/Globulin Ratio 1.2 06/11/20 19:45: WBC 9.5, RBC 3.94 L, Hgb 12.7, Hct 37.1, MCV 94.2, MCH 32.2 H, MCHC 34.2, RDW 13.9, Plt Count 228, MPV 10.7, Neut # (Auto) 7.3 H, Lymph # (Auto) 1.1 L, Mason # (Auto) 1.0, Eos # (Auto) 0.0, Baso # (Auto) 0.0, Absolute Nucleated RBC 0.00, Nucleated RBC % 0.0 Lab results reviewed: Yes Fish Bones: 06/12/20 05:20 06/12/20 05:20 Home Medications and Allergies Active Medications Acetaminophen (Tylenol) 1,000 mg PO Q6HR [facility] Last Admin: 06/12/20 06:38 Dose: 1,000 mg Documented by: Hydromorphone HCl (Dilaudid Inj Syringe) 0.2 mg IVP Q2H PRN PRN Reason: Pain 8 to 10 Lactated Ringer's (Lr) 1,000 mls @ 75 mls/hr IV .[id number] [facility] Last Admin: 06/11/20 22:40 Dose: 75 mls/hr Documented by: Tranexamic Acid 1,000 mg/ (Sodium Chloride) 110 mls @ 0 mls/hr IV ONCE [facility] Stop: 06/12/20 18:00 Ketorolac Tromethamine (Toradol Inj (15mg)) 15 mg IVP Q6H PRN PRN Reason: PAIN Stop: 06/16/20 21:59 Last Admin: 06/12/20 06:38 Dose: 15 mg Documented by: Metoprolol Tartrate (Lopressor) 25 mg PO BID [facility] Last Admin: 06/12/20 01:08 Dose: 25 mg Documented by: Ondansetron HCl (Zofran Inj) 4 mg IVP Q6HR PRN PRN Reason: Nausea / Vomiting Oxycodone HCl (Roxicodone) 2.5 mg PO Q4HR PRN PRN Reason: PAIN 5-7 Pantoprazole Sodium (Protonix) 40 mg PO QDAC [facility] Last Admin: 06/12/20 06:38 Dose: 40 mg Documented by: Ropivacaine (Naropin) 100 mg EP ONCE [facility] Stop: 06/12/20 18:00 Sodium Chloride (Normal Saline Flush 0.9%) 10 ml IVP PRN PRN PRN Reason: NEEDED PER PROVIDER ORDERS Acetaminophen 500 mg PO Q4HR PRN 01/24/18 Memantine HCl [Namenda] 10 mg BID 01/24/18 amLODIPine [Norvasc] 5 mg PO DAILY 01/24/18 lisinopriL [Lisinopril] 20 mg PO DAILY 01/24/18 Codeine Phosphate/Guaifenesin [Guaifen-Codeine 100-10 mg/5 ml] 5 ml PO DAILY PRN 05/19/19 QUEtiapine [SEROquel] 25 mg PO BID PRN 05/19/19 Allergies/Adverse Reactions: Allergies Allergy/AdvReac Type Severity Reaction Status Date / Time No Known Drug Allergies Allergy Verified 06/11/20 19:53 Anes History & Medical History - Anesthetic History Anesthesia Complications: reports: No previous complications - Medical History Cardiovascular: reports: Hypertension, Atrial flutter (on previous EKG) Pulmonary: reports: Other (Covid positive) Gastrointestinal: reports: None Urinary: reports: None Neuro: reports: Dementia (Severe) Musculoskeletal: reports: Osteoporosis Endocrine/Autoimmune: reports: None Blood Disorders: reports: None Skin: reports: None Smoking Status: Never smoker Psychosocial: reports: No issues indicated History of Cancer?: No - Surgical History Eyes Ears Nose Throat (EENT): Tonsil/Adenoidectomy Exam General: Alert, No acute distress Dental: Other (Unable to assess due to advanced dementia) Thyromental Distance: 4-6 cm (Unable to cooperate with full airway exam) Respiratory: Lungs clear, Normal breath sounds, No respiratory distress, No accessory muscle use Cardiovascular: Regular rate, Normal S1, Normal S2, No murmurs Mental/Cognitive Status: Confused, Alert, Other (advanced dementia) Cognitive Status: Dementia Plan Anesthesia Type: Spinal, Fascia Iliaca Block (left) Consent for Procedure(s) Verified and Reviewed: Yes Code Status: Attempt Resuscitation ASA classification: 3-Severe systemic disease Is this case an emergency?: No
[2020-06-12] MEDS ORDERED: TRANEXAMIC ACID 1,000 MG in SODIUM CHLORIDE 0.9% 100ML 100 ML IV SCH (11:00)
[2020-06-12] MEDS: LACTATED RINGERS 1,000 ML IV SCH ×2 (11:22→17:02)
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
[2020-06-12] MEDS ORDERED: ROPIVACAINE 0.5% PF 20 ML AMPULE ONE (12:49)
--- NOTE | 2020-06-12 13:00 | OPERATIVE REPORT ---
Operative Report - General Admit Date: 06/11/20 Planned Procedure: Left hip hemiarthroplasty Pre-Op Diagnosis: displaced left femoral neck fracture Procedure Performed: left hip hemiarthroplasty Post Op Diagnosis: same - Procedure Note Primary Surgeon: MARIAH Anesthesia Technique: General ET tube Estimated Blood Loss (mL): 300 - Other Other Information/Narrative: PREOPERATIVE DIAGNOSIS: left displaced femoral neck fracture POSTOPERATIVE DIAGNOSIS: same PROCEDURE: Left hip hemiarthroplasty IMPLANTS: BRAMBILA AND NEPHEW SYNERGY SIZE 12 STEM, 46+0 MM UNIPOLAR HEAD SURGEON: Dr Solomon Rodriguez MD [employer] CAKE DESIGNER: OR staff EBL: 300cc PREAMBLE: The patient had a ground-level fall, sustaining a pathological displaced femoral neck fracture secondary to osteoporosis. Operative and non- operative management strategies were discussed. The decision was made to proceed with hemiarthroplasty. IMPLANTS: BRAMBILA AND NEPHEW SYNERGY SIZE STEM, MM UNIPOLAR HEAD OPERATIVE NOTE: The patient was seen in preoperative holding. Surgical consent was confirmed and site was marked. Patient was then taken to the operating room. Adequate anaesthetic administered. Patient was placed in the lateral position on a beanbag with all bony prominences well padded. Patient received intravenous antibiotics preoperatively for prophylaxis against infection. Surgical timeout was completed, confirming patient, procedure and side. The leg was prepped and draped in the usual sterile fashion. Longitudinal incision was made centered over the greater trochanter. Skin and subcutaneous tissues dissected with a scalpel. Fascia divided in line with the skin incision. Anterior border of gluteus medius was identified. Medius, minimus and capsule elevated as a single layer with electrocautery. The femoral neck fracture was then visualized. Femoral neck cut was completed and the head was removed without difficulty. Diameter was then measured. With the leg in the bag at the side of the bed, the femoral canal was then sequentially broached. Cement restrictor was placed into the middle of the canal. The femur was prepared with pulsatile lavage and a brush. Packed with a sponge as cement was mixed on the back table. Once the cement had reached the appropriate consistency, the canal was filled with cement and pressurized. The definitive implant was inserted maintaining appropriate anteversion. Excess cement was removed. Once the cement had fully hardened, the definitive unipolar head was then seated on the Silvestre taper. The periarticular tissues were infiltrated with ropivacaine. The hip joint and we were thoroughly irritated with normal saline. The hip was then reduced. Abductors were reattached to the trochanter with #5 ethibond. Again the wound was irrigated with NS. The wound was enclosed in layers. Skin closed with eduardo, and sterile dressings applied. Patient was then transferred to a regular hospital bed and take them to the recovery room in stable condition with no intraoperative complications. Postoperative plan: check x-ray in recovery. Weight-bearing as tolerated. No hip restrictions. Intravenous antibiotics for prophylaxis against infection. SCDs and aspirin for DVT prophylaxis for 28 days. Dressing change postop day 2, then as needed. [place] out in 10 to 14 days. Follow up in six weeks with radiographs of the pelvis.
--- NOTE | 2020-06-12 13:02 | PHARMACY PROGRESS NOTE ---
- Best Possible Medication History Admit Date and Time: 06/11/202122 Processed by: Pharmacy Medication History completed: Yes Patient Interview: Pt unable to participate Secondary Source(s): Physician records (PATIENT MEDICATION RECONCILIATION COM PLETED USING MEDICATION MAR FROM [facility]), Pharmacy records, Insurance records As the person ultimately responsible for medication therapy, providers are able to order a medication from an existing home medication list in [facility] via the "Reconcile Routine" prior to Confirmation of that medication by software support engineer. Such practice is discouraged except when the physician, in their clinical judgment, deems that a medical need exists for a medication without regard to previous use.
[2020-06-12] MEDS ORDERED: ROPIVACAINE 0.5% PF 20 ML AMPULE SUBQ ONE (15:20)
[2020-06-12] MEDS ORDERED: ONDANSETRON 4 MG/2 ML VIAL IVP PRN (15:39)
[2020-06-12] MEDS ORDERED: HYDROmorphone 0.5 MG/0.5 ML SYRINGE IVP PRN (15:39)
[2020-06-12] MEDS ORDERED: BISACODYL 10 MG SUPP PR PRN (15:39)
[2020-06-12] MEDS ORDERED: SODIUM CHLORIDE FLUSH 0.9% 10 ML SYRINGE IVP PRN (15:39)
[2020-06-12] MEDS ORDERED: KETOROLAC 15 MG/ML VIAL IVP PRN (15:39)
[2020-06-12] MEDS ORDERED: oxyCODONE 5 MG TABLET PO PRN ×2 (15:39)
[2020-06-12] MEDS ORDERED: LACTATED RINGERS 1,000 ML IV ONE (15:45)
--- NOTE | 2020-06-12 16:28 | XRAY Report ---
PROCEDURE: Pelvis 1 View INDICATIONS: postop TECHNIQUE: 2 view(s) of the pelvis acquired. COMPARISON: None. FINDINGS: Bones: Patient is status post left hip arthroplasty with anatomic left hip alignment. Pelvic ring is intact. No acute fracture or dislocation.. No suspicious bony lesions. Soft tissues: Visualized bowel gas pattern is normal. No suspicious soft tissue calcifications. IMPRESSION: Postsurgical changes from left hip arthroplasty with anatomic left hip alignment. Reviewed by: Dirk Faith MD on 06/12/2020 3:26 PM [facility] Approved by: Dirk Faith MD on 06/12/2020 3:26 PM [place] Station ID: [id number]
--- NOTE | 2020-06-12 16:29 | ANESTHESIA POST OP EVALUATION ---
Anesthesia Post Eval - Post Anesthesia Eval Vitals: Last Vital Signs Temp 36.3 C L 06/12/20 16:25 Pulse 83 06/12/20 16:25 Resp 16 06/12/20 16:25 BP 155/106 H 06/12/20 16:25 Pulse Ox 98 06/12/20 16:25 CV Function Including HR & BP: positive: Stable Pain Control: positive: Satisfactory Nausea & Vomiting: positive: Negative Mental Status: positive: Baseline Respiratory Status: Airway Patent Hydration Status: Satisfactory Anesthesia Complications: positive: None
[2020-06-12] MEDS: SODIUM CHLORIDE FLUSH 0.9% 10 ML SYRINGE IVP SCH (17:02)
[2020-06-12] MEDS: ACETAMINOPHEN 325 MG TABLET PO SCH ×2 (19:28→22:27)
[2020-06-12] MEDS ORDERED: HEPARIN 5,000 UNIT/ML VIAL SUBQ SCH (21:00)
[2020-06-12] MEDS: ceFAZolin 2 GM in SODIUM CHLORIDE 0.9% 100ML 100 ML IV SCH (22:26)
[2020-06-12] MEDS: ASPIRIN EC 81 MG TABLET PO SCH (22:27)
[2020-06-13] MEDS: ACETAMINOPHEN 500 MG TABLET PO SCH ×4 (00:39→19:46)
[2020-06-13] MEDS: SODIUM CHLORIDE FLUSH 0.9% 10 ML SYRINGE IVP SCH ×3 (01:00→19:46)
[2020-06-13] MEDS: LACTATED RINGERS 1,000 ML IV SCH ×3 (01:06→11:13)
[2020-06-13] MEDS ORDERED: LACTATED RINGERS 1,000 ML IV ONE (01:10)
[2020-06-13] MEDS: SODIUM CHLORIDE FLUSH 0.9% 10 ML SYRINGE IVP PRN (04:53)
[2020-06-13] MEDS: KETOROLAC 15 MG/ML VIAL IVP PRN (04:53)
[2020-06-13] MEDS: PANTOPRAZOLE 40 MG TABLET PO SCH (06:05)
[2020-06-13] MEDS: ceFAZolin 2 GM in SODIUM CHLORIDE 0.9% 100ML 100 ML IV SCH (06:06)
[2020-06-13 06:24] LABS: BASOPHILS % (AUTO) 0.5 %; EOSINOPHILS # (AUTO) 0.2 10^3/uL (0.0-0.7); EOSINOPHILS % (AUTO) 1.7 %; HGB - HEMOGLOBIN 10.5 g/dL (12.0-16.0); LYMPHOCYTES # (AUTO) 1.4 10^3/uL (1.5-3.5); LYMPHOCYTES % (AUTO) 15.4 %; MEAN CORPUSCULAR HEMOGLOBIN 31.4 pg (27.0-31.0); MEAN CORPUSCULAR HGB CONC 33.2 g/dL (32.0-36.0); MEAN CORPUSCULAR VOLUME 94.6 fL (81.0-99.0); MEAN PLATELET VOLUME 10.9 fL (7.9-10.8); MONOCYTES # (AUTO) 0.7 10^3/uL (0.0-1.0); NEUTROPHILS # (AUTO) 6.6 10^3/uL (1.5-6.6); NEUTROPHILS % (AUTO) 74.1 %; PLT - PLATELET COUNT 185 10^3/uL (130-450); RED BLOOD COUNT 3.34 10^6/uL (4.20-5.40); RED CELL DISTRIBUTION WIDTH 14.2 % (12.0-15.0); WHITE BLOOD COUNT 8.8 x10^3/uL (4.8-10.8)
[2020-06-13 06:38] LABS: CALCIUM 8.4 mg/dL (8.5-10.3); CREATININE 1.1 mg/dL (0.4-1.0); MAGNESIUM 1.7 mg/dL (1.7-2.8); PHOSPHORUS 3.7 mg/dL (2.5-4.6)
[2020-06-13] MEDS: DOCUSATE SODIUM 250 MG CAPSULE PO SCH (09:06)
[2020-06-13] MEDS: METOPROLOL TARTRATE 25 MG TABLET PO SCH ×2 (09:07→22:34)
[2020-06-13] MEDS: ASPIRIN EC 81 MG TABLET PO SCH ×2 (09:07→22:34)
[2020-06-13] MEDS: polyethylene glycoL 3350 17 GM PACKET PO SCH (09:07)
[2020-06-13] MEDS: SENNA 8.6 MG TABLET PO SCH (09:07)
[2020-06-13] MEDS ORDERED: QUEtiapine 25 MG TABLET PO STA ×2 (10:27→10:54)
[2020-06-13] MEDS: lisinopriL 20 MG TABLET PO SCH ×2 (11:11→22:35)
--- NOTE | 2020-06-13 11:41 | PROVIDER PROGRESS NOTE ---
Assessment/Plan - Current Meds Current Meds: Current Medications Generic Name Dose Route Start Last Admin Trade Name Freq PRN Reason Stop Dose Admin Acetaminophen 1,000 mg 06/12/20 00:00 06/13/20 11:15 Tylenol PO 1,000 mg Q6HR MOOSE Administration Aspirin 81 mg 06/12/20 21:00 06/13/20 09:07 Ecotrin PO 81 mg BID MOOSE Administration Docusate Sodium 250 - 500 mg 06/13/20 09:00 06/13/20 09:06 Colace 250mg Capsule PO 250 mg DAILY MOOSE Administration Lactated Ringer's 1,000 mls @ 83.3 mls/hr 06/13/20 08:04 06/13/20 11:13 Lr IV 06/14/20 08:04 83.3 mls/hr .Q12H1M MOOSE Administration Ketorolac Tromethamine 15 mg 06/11/20 22:00 06/13/20 04:53 Toradol Inj (15mg) IVP 06/16/20 21:59 15 mg Q6H PRN Administration PAIN Lisinopril 20 mg 06/13/20 11:00 06/13/20 11:11 Zestril PO 20 mg BID MOOSE Administration Metoprolol Tartrate 25 mg 06/11/20 22:00 06/13/20 09:07 Lopressor PO 25 mg BID MOOSE Administration Pantoprazole Sodium 40 mg 06/12/20 07:00 06/13/20 06:05 Protonix PO 40 mg QDAC MOOSE Administration Polyethylene Glycol 17 gm 06/13/20 09:00 06/13/20 09:07 Miralax PO 17 gm DAILY MOOSE Administration Senna 8.6 - 17.2 mg 06/13/20 09:00 06/13/20 09:07 Senokot PO 8.6 mg DAILY MOOSE Administration Sodium Chloride 10 ml 06/11/20 21:23 06/13/20 04:53 Normal Saline Flush 0.9% IVP 10 ml PRN PRN Administration NEEDED PER PROVIDER ORDERS Sodium Chloride 10 ml 06/12/20 17:00 06/13/20 09:07 Normal Saline Flush 0.9% IVP Not Given 0100,0900,1700 MOOSE - Lab Result Fish Bone Diagrams: 06/13/20 05:53 06/13/20 05:53 - Additional Planning My Orders: My Active Orders 06/12/20 15:39 Bisacodyl Supp [Dulcolax Supp] 10 mg ID Q12H PRN Sodium Chloride Flush 0.9% [Normal Saline Flush 0.9%] 10 ml IVP PRN PRN 06/12/20 15:40 Activity Orders [RC] Q2HR D/C Carroll Post-Op Day 1 [RC] ONCE Carroll Insertion [RC] ONCE IV Line/Site Care [RC] QSHIFT Initiate Bowel Care Protocol [RC] QSHIFT Initiate Personal Care Protoco [RC] .protocol Initiate Standard Care Protocols [OTHERS] Routine Neuro Vascular Check - LE [RC] Q30MX2,Q2HX2,Q4HX2,QSHIFT Smoking Cessation if indicated [RC] ONCE Straight Catheter Insertion [RC] PRN Vital Signs - Post-Op [RC] Q30MX2,Q1HX2,Q4H Social Work Consult [CONS] Routine Code Status [OTHERS] Routine Condition of Patient [OTHERS] Routine DVT Prophylaxis [OTHERS] Routine Evaluate and Treat OT [OT] Routine Evaluate and Treat PT [PT] Routine 06/12/20 Dinner Regular Diet [DIET] 06/12/20 17:00 Sodium Chloride Flush 0.9% [Normal Saline Flush 0.9%] 10 ml IVP 0100,0900,1700 06/12/20 21:00 Aspirin EC [Ecotrin] 81 mg PO BID Objective Vital Signs: Vital Signs - 24 hr 06/12/20 06/12/20 06/12/20 12:29 15:42 15:45 Temperature 36.8 C 35.5 C L Heart Rate 81 65 Heart Rate [ 64 Brachial] Respiratory 20 16 16 Rate Blood Pressure 125/92 H 123/79 Blood Pressure 150/89 H [Left Brachial artery] Blood Pressure [Right Brachial artery] O2 Saturation 94 100 100 06/12/20 06/12/20 06/12/20 15:50 15:55 16:00 Temperature 35.5 C L 35.9 C L Heart Rate 63 82 82 Heart Rate [ Brachial] Respiratory 16 16 16 Rate Blood Pressure 137/88 H 137/95 H 153/99 H Blood Pressure [Left Brachial artery] Blood Pressure [Right Brachial artery] O2 Saturation 100 100 100 06/12/20 06/12/20 06/12/20 16:05 16:10 16:25 Temperature 35.9 C L 36.3 C L Heart Rate 83 80 83 Heart Rate [ Brachial] Respiratory 18 14 16 Rate Blood Pressure 148/107 H 157/101 H 155/106 H Blood Pressure [Left Brachial artery] Blood Pressure [Right Brachial artery] O2 Saturation 100 100 98 06/12/20 06/12/20 06/12/20 16:49 17:05 17:48 Temperature 36.1 C L 36.6 C Heart Rate Heart Rate [ 78 75 73 Brachial] Respiratory 18 18 18 Rate Blood Pressure Blood Pressure 150/90 H [Left Brachial artery] Blood Pressure 142/94 H 145/89 H [Right Brachial artery] O2 Saturation 92 94 94 06/12/20 06/12/20 06/13/20 20:50 22:28 00:22 Temperature 36.9 C 36.9 C Heart Rate Heart Rate [ 80 101 H Brachial] Respiratory 18 18 Rate Blood Pressure 138/98 H Blood Pressure 138/98 H 152/85 H [Left Brachial artery] Blood Pressure [Right Brachial artery] O2 Saturation 94 93 06/13/20 06/13/20 04:00 08:00 Temperature 37.0 C 37.2 C Heart Rate Heart Rate [ 71 71 Brachial] Respiratory 18 18 Rate Blood Pressure Blood Pressure [Left Brachial artery] Blood Pressure 150/93 H 140/88 H [Right Brachial artery] O2 Saturation 94 92 Oxygen O2 Source Room air I&O (Last 24 Hrs): Intake and Output Totals x24h 06/11/20 06/12/20 06/13/20 23:59 23:59 23:59 Intake Total 1756.25 1523.542 Output Total 15 1000 1000 Balance -15 756.25 523.542 - Results Results: Laboratory Results WBC 8.8 x10^3/uL (4.8-10.8) 06/13/20 05:53 RBC 3.34 10^6/uL (4.20-5.40) L 06/13/20 05:53 Hgb 10.5 g/dL (12.0-16.0) L 06/13/20 05:53 Hct 31.6 % (37.0-47.0) L 06/13/20 05:53 MCV 94.6 fL (81.0-99.0) 06/13/20 05:53 MCH 31.4 pg (27.0-31.0) H 06/13/20 05:53 MCHC 33.2 g/dL (32.0-36.0) 06/13/20 05:53 RDW 14.2 % (12.0-15.0) 06/13/20 05:53 Plt Count 185 10^3/uL (130-450) 06/13/20 05:53 MPV 10.9 fL (7.9-10.8) H 06/13/20 05:53 Neut # (Auto) 6.6 10^3/uL (1.5-6.6) 06/13/20 05:53 Lymph # (Auto) 1.4 10^3/uL (1.5-3.5) L 06/13/20 05:53 [place] # (Auto) 0.7 10^3/uL (0.0-1.0) 06/13/20 05:53 Eos # (Auto) 0.2 10^3/uL (0.0-0.7) 06/13/20 05:53 Baso # (Auto) 0.0 10^3/uL (0.0-0.1) 06/13/20 05:53 Absolute Nucleated RBC 0.00 x10^3/uL 06/13/20 05:53 Nucleated RBC % 0.0 /100WBC 06/13/20 05:53 PT 13.0 secs (9.9-12.6) H 06/11/20 19:45 INR 1.2 (0.8-1.2) 06/11/20 19:45 Sodium 138 mmol/L (135-145) 06/13/20 05:53 Potassium 3.7 mmol/L (3.5-5.0) 06/13/20 05:53 Chloride 102 mmol/L (101-111) 06/13/20 05:53 Carbon Dioxide 24 mmol/L (21-32) 06/13/20 05:53 Anion Gap 12.0 (6-13) 06/13/20 05:53 BUN 14 mg/dL (6-20) 06/13/20 05:53 Creatinine 1.1 mg/dL (0.4-1.0) H 06/13/20 05:53 Estimated GFR (MDRD) 48 (>89) L 06/13/20 05:53 Glucose 96 mg/dL (70-100) 06/13/20 05:53 Lactic Acid 1.4 mmol/L (0.5-2.2) 06/11/20 23:30 Calcium 8.4 mg/dL (8.5-10.3) L 06/13/20 05:53 Phosphorus 3.7 mg/dL (2.5-4.6) 06/13/20 05:53 Magnesium 1.7 mg/dL (1.7-2.8) 06/13/20 05:53 Total Bilirubin 0.7 mg/dL (0.2-1.0) 06/11/20 19:45 AST 29 IU/L (10-42) 06/11/20 19:45 ALT 19 IU/L (10-60) 06/11/20 19:45 Alkaline Phosphatase 68 IU/L (42-121) 06/11/20 19:45 Troponin I High Sens 10.5 ng/L (2.3-14.8) 06/11/20 19:45 Total Protein 7.8 g/dL (6.7-8.2) 06/11/20 19:45 Albumin 4.2 g/dL (3.2-5.5) 06/11/20 19:45 Globulin 3.6 g/dL (2.1-4.2) 06/11/20 19:45 Albumin/Globulin Ratio 1.2 (1.0-2.2) 06/11/20 19:45 TSH 2.31 uIU/mL (0.34-5.60) 06/12/20 05:20 Urine Color YELLOW 06/11/20 20:10 Urine Clarity CLEAR (CLEAR) 06/11/20 20:10 Urine pH 6.5 PH (5.0-7.5) 06/11/20 20:10 Ur Specific [place] 1.025 (1.002-1.030) 06/11/20 20:10 Urine Protein NEGATIVE mg/dL (NEGATIVE) 06/11/20 20:10 Urine Glucose (UA) NEGATIVE mg/dL (NEGATIVE) 06/11/20 20:10 Urine Ketones 15 mg/dL (NEGATIVE) H 06/11/20 20:10 Urine Occult Blood TRACE-INTA (NEGATIVE) 06/11/20 20:10 Urine Nitrite NEGATIVE (NEGATIVE) 06/11/20 20:10 Urine Bilirubin NEGATIVE (NEGATIVE) 06/11/20 20:10 Urine Urobilinogen 0.2 (NORMAL) E.U./dL (NORMAL) 06/11/20 20:10 Ur Leukocyte Esterase NEGATIVE (NEGATIVE) 06/11/20 20:10 Urine RBC 0-5 /HPF (0-5) 06/11/20 20:10 Urine WBC 0-3 /HPF (0-5) 06/11/20 20:10 Ur Squamous Epith Cells RARE Squamous (<= Few) 06/11/20 20:10 Urine Bacteria None Seen /HPF (None Seen) 06/11/20 20:10 Urine Culture Comments NOT INDICATED 06/11/20 20:10 Nasal Adenovirus (PCR) NOT DETECTED 06/11/20 21:17 Nasal B. parapertussis DNA (PCR) NOT DETECTED 06/11/20 21:17 Nasal Coronavir 229E PCR NOT DETECTED 06/11/20 21:17 Nasal Coronavir HKU1 PCR NOT DETECTED 06/11/20 21:17 Nasal Coronavir NL63 PCR NOT DETECTED 06/11/20 21:17 Nasal Coronavir OC43 PCR NOT DETECTED 06/11/20 21:17 Nasal Enterovir/Rhinovir PCR NOT DETECTED 06/11/20 21:17 Nasal Influenza B PCR NOT DETECTED 06/11/20 21:17 Nasal Parainfluen 1 PCR NOT DETECTED 06/11/20 21:17 Nasal Parainfluen 2 PCR NOT DETECTED 06/11/20 21:17 Nasal Parainfluen 3 PCR NOT DETECTED 06/11/20 21:17 Nasal Parainfluen 4 PCR NOT DETECTED 06/11/20 21:17 Nasal RSV (PCR) NOT DETECTED 06/11/20 21:17 Nasal B.pertussis DNA PCR NOT DETECTED 06/11/20 21:17 Nasal C.pneumoniae (PCR) NOT DETECTED 06/11/20 21:17 Farooq Human Metapneumo PCR NOT DETECTED 06/11/20 21:17 Nasal M.pneumoniae (PCR) NOT DETECTED 06/11/20 21:17 Nasal SARS-CoV-2 (PCR) DETECTED A 06/11/20 21:17 Sepsis Event Note (H) - Evaluation Current Stage of Sepsis: Ruled out ABX Reporting Has patient been on IV antibiotics over the past 48 hours?: No
--- NOTE | 2020-06-13 12:30 | PROVIDER PROGRESS NOTE ---
Subjective - Prog Note Date Prog Note Date: 06/13/20 - Subjective Pt reports feeling: Improved Subjective: pt did not present respiratory distress, no cough, no fever. pt is confused today. pt had operation on yesterday afternoon with possible anesthesia effect and pt has hx of dementia. Nurse report pt's son hope me to call him. I did call pt's son at [phone], unfortunately her son was not interested at my report, he state he want to talk with somebody also, and he quickly hand off my telephone. Current Medications - Current Medications Current Medications: Active Medications Acetaminophen (Tylenol) 1,000 mg PO Q6HR [facility] Last Admin: 06/13/20 11:15 Dose: 1,000 mg Documented by: Aspirin (Ecotrin) 81 mg PO BID [facility] Last Admin: 06/13/20 09:07 Dose: 81 mg Documented by: Bisacodyl (Dulcolax Supp) 10 mg [place] Q12H PRN PRN Reason: Constipation Docusate Sodium (Colace 250mg Capsule) 250 - 500 mg PO DAILY [facility] Last Admin: 06/13/20 09:06 Dose: 250 mg Documented by: Hydromorphone HCl (Dilaudid Inj Syringe) 0.2 mg IVP Q2H PRN PRN Reason: Pain 8 to 10 Lactated Ringer's (Lr) 1,000 mls @ 83.3 mls/hr IV .Q12H1M [facility] Stop: 06/14/20 08:04 Last Admin: 06/13/20 11:13 Dose: 83.3 mls/hr Documented by: Ketorolac Tromethamine (Toradol Inj (15mg)) 15 mg IVP Q6H PRN PRN Reason: PAIN Stop: 06/16/20 21:59 Last Admin: 06/13/20 04:53 Dose: 15 mg Documented by: Lisinopril (Zestril) 20 mg PO BID [facility] Last Admin: 06/13/20 11:11 Dose: 20 mg Documented by: Memantine (Namenda) 10 mg PO BID [facility] Metoprolol Tartrate (Lopressor) 25 mg PO BID [facility] Last Admin: 06/13/20 09:07 Dose: 25 mg Documented by: Ondansetron HCl (Zofran Inj) 4 mg IVP Q6HR PRN PRN Reason: Nausea / Vomiting Oxycodone HCl (Roxicodone) 2.5 mg PO Q4HR PRN PRN Reason: PAIN 5-7 Pantoprazole Sodium (Protonix) 40 mg PO QDAC [facility] Last Admin: 06/13/20 06:05 Dose: 40 mg Documented by: Polyethylene Glycol (Miralax) 17 gm PO DAILY [facility] Last Admin: 06/13/20 09:07 Dose: 17 gm Documented by: Quetiapine Fumarate (Seroquel) 25 mg PO DAILY [facility] Quetiapine Fumarate (Seroquel) 50 mg PO QPM [facility] Senna (Senokot) 8.6 - 17.2 mg PO DAILY [facility] Last Admin: 06/13/20 09:07 Dose: 8.6 mg Documented by: Sodium Chloride (Normal Saline Flush 0.9%) 10 ml IVP PRN PRN PRN Reason: NEEDED PER PROVIDER ORDERS Last Admin: 06/13/20 04:53 Dose: 10 ml Documented by: Sodium Chloride (Normal Saline Flush 0.9%) 10 ml IVP 0100,0900,1700 [facility] Last Admin: 06/13/20 09:07 Dose: Not Given Documented by: Sodium Chloride (Normal Saline Flush 0.9%) 10 ml IVP PRN PRN PRN Reason: NEEDED PER PROVIDER ORDERS Memantine HCl [Namenda] 10 mg PO BID 01/24/18 lisinopriL [Lisinopril] 20 mg PO BID 01/24/18 QUEtiapine [SEROquel] 25 mg PO DAILY 05/19/19 Acetaminophen [Tylenol] 325 mg PO PRN PRN 06/12/20 QUEtiapine [SEROquel] 50 mg PO QPM 06/12/20 Objective - Vital Signs/Intake & Output Vital Signs: Vital Signs x48h Temp Pulse Resp BP Pulse Ox 06/13/20 08:00 37.2 C 71 18 140/88 H 92 Intake & Output: Intake & Output 06/10/20 06/11/20 06/12/20 06/13/20 23:59 23:59 23:59 23:59 Intake Total 1756.25 2523.542 Output Total 15 1000 1000 Balance -15 756.25 1523.542 - Objective General Appearance: positive: No acute distress, Alert. negative: Lethargic Eyes Bilateral: positive: Normal inspection, PERRL, No lid inflammation ENT: positive: ENT inspection nml, No signs of dehydration. negative: Purulent nasal drainage Neck: positive: Nml inspection, Thyroid nml, Trachea midline. negative: Thyromegaly, Tracheal deviation Respiratory: positive: Chest non-tender, No respiratory distress, Breath sounds nml. negative: Wheezes, Rhonchi Cardiovascular: positive: Regular rate & rhythm, No murmur. negative: Tachycardia, Bradycardia, Systolic murmur, Diastolic murmur Peripheral Pulses: 2+ Radial (R), 2+ Radial (L) Abdomen: positive: Non-tender, Nml bowel sounds, No distention. negative: Tenderness, Guarding, Rebound Back: positive: Nml inspection Skin: positive: Color nml, No rash, Warm, Dry. negative: Cyanosis, Diaphoresis, Pallor Extremities: positive: Non-tender, Nml appearance. negative: Calf tenderness Neurologic/Psychiatric: positive: Sensation nml. negative: Oriented x3, Weakness, Sensory loss, Facial droop, Slurred/abnml speech - Lab Results Fish Bones: 06/13/20 05:53 06/13/20 05:53 Other Labs: Lab Results x24hrs 06/13/20 06/13/20 06/12/20 Range/Units 05:53 05:53 22:18 WBC 8.8 (4.8-10.8) x10^3/uL RBC 3.34 L (4.20-5.40) 10^6/uL Hgb 10.5 L 12.0 (12.0-16.0) g/dL Hct 31.6 L 35.9 L (37.0-47.0) % MCV 94.6 (81.0-99.0) fL MCH 31.4 H (27.0-31.0) pg MCHC 33.2 (32.0-36.0) g/dL RDW 14.2 (12.0-15.0) % Plt Count 185 (130-450) 10^3/uL MPV 10.9 H (7.9-10.8) fL Neut # (Auto) 6.6 (1.5-6.6) 10^3/uL Lymph # (Auto) 1.4 L (1.5-3.5) 10^3/uL [place] # (Auto) 0.7 (0.0-1.0) 10^3/uL Eos # (Auto) 0.2 (0.0-0.7) 10^3/uL Baso # (Auto) 0.0 (0.0-0.1) 10^3/uL Absolute Nucleated RBC 0.00 x10^3/uL Nucleated RBC % 0.0 /100WBC Sodium 138 (135-145) mmol/L Potassium 3.7 (3.5-5.0) mmol/L Chloride 102 (101-111) mmol/L Carbon Dioxide 24 (21-32) mmol/L Anion Gap 12.0 (6-13) BUN 14 (6-20) mg/dL Creatinine 1.1 H (0.4-1.0) mg/dL Estimated GFR (MDRD) 48 L (>89) Glucose 96 (70-100) mg/dL Calcium 8.4 L (8.5-10.3) mg/dL Phosphorus 3.7 (2.5-4.6) mg/dL Magnesium 1.7 (1.7-2.8) mg/dL ABX Reporting Has patient been on IV antibiotics over the past 48 hours?: No Sepsis Event Note (H) - Evaluation Current Stage of Sepsis: Ruled out Assessment/Plan - Problem List (1) Closed left femoral fracture Impression: 06/13 Today is day 1 status post of left hip repair. Continue PT and OT, Continue pain control, Continue DVT prophylaxis, D/C the coto. 06/12 Patient is comfortable sleeping in the bed now. pt is planned to have hip repair surgery on this afternoon per surgeon, we followup with care for pt. Followup care including PT/OT, pain control, DVT prophylaxis, and social work specialist consult to prepare for disposition (2) confusion pt is confused today. pt had operation on yesterday afternoon with possible anesthesia effect and pt has hx of dementia. We will resume patient home medication Seroquel and Memantine. Continue nurse support, let patient good sleep, Limited to pain medication usage as possible. (3) Atrial flutter, paroxysmal Conclusion/Plan: 06/13 stable, continue beta emmy meds, Continue vital signs monitor 06/12, tele strip show sinus bradycardia at HR around 59 now. pt is hemodynamic stable now. continue metoprolol now to control her atrial flutter, paroxysmal. (4) COVID-19 virus detected Conclusion/Plan: 06/13 Patient has no respiratory distress, patient has no cough, patient has no fever, Patient stable now. We will closely monitor patient's respiratory status, Continue vital signs monitor 06/12 pt has no fever, without respiratory distress and with 95% sat on roomWill resume patient home medication ENDOCRINE: No thyromegaly, buffalo hump or antonio facies. [place] isolation per protocol. (5) Hypertension Conclusion/Plan: 06/12 stable, will resume home BP meds after surgery and after confirmed by pharmacy (6) Dementia Conclusion/Plan: 06/12 agree She will be at risk for postop delirium given her spine dementia, We will resume her home medications once the dose is confirmed by pharmacy. We will attempt to limit the use of narcotics to limit delirium Qualifiers: Encounter type: initial encounter Femur location: other head and neck Qualified Code(s): S72.092A - Other fracture of head and neck of left femur, initial encounter for closed fracture
[2020-06-13] MEDS: CALCIUM CITRATE 250 MG TABLET PO SCH (14:21)
[2020-06-13] MEDS ORDERED: CYANOCOBALAMIN 1,000 MCG/ML VIAL IM ONE (18:19)
[2020-06-13] MEDS: CHOLECALCIFEROL 25 MCG TABLET PO SCH (19:46)
[2020-06-13] MEDS: CYANOCOBALAMIN 500 MCG TABLET PO SCH (19:46)
[2020-06-13] MEDS ORDERED: QUEtiapine 25 MG TABLET PO SCH (21:00)
[2020-06-13] MEDS ORDERED: VANCOMYCIN INJ 0.75 GM in SODIUM CHLORIDE 0.9% 250 ML IV SCH (22:00)
[2020-06-13] MEDS: MEMANTINE 5 MG TABLET PO SCH (22:35)
[2020-06-14] MEDS: ACETAMINOPHEN 500 MG TABLET PO SCH ×4 (00:22→17:49)
[2020-06-14] MEDS: SODIUM CHLORIDE FLUSH 0.9% 10 ML SYRINGE IVP SCH ×3 (00:22→17:49)
[2020-06-14 06:44] LABS: BASOPHILS % (AUTO) 0.4 %; EOSINOPHILS # (AUTO) 0.3 10^3/uL (0.0-0.7); HGB - HEMOGLOBIN 10.5 g/dL (12.0-16.0); LYMPHOCYTES # (AUTO) 0.6 10^3/uL (1.5-3.5); LYMPHOCYTES % (AUTO) 7.1 %; MEAN CORPUSCULAR HEMOGLOBIN 32.2 pg (27.0-31.0); MEAN CORPUSCULAR HGB CONC 33.2 g/dL (32.0-36.0); MEAN CORPUSCULAR VOLUME 96.9 fL (81.0-99.0); MEAN PLATELET VOLUME 11.1 fL (7.9-10.8); MONOCYTES # (AUTO) 0.6 10^3/uL (0.0-1.0); MONOCYTES % (AUTO) 7.2 %; NEUTROPHILS # (AUTO) 6.6 10^3/uL (1.5-6.6); NEUTROPHILS % (AUTO) 80.9 %; PLT - PLATELET COUNT 163 10^3/uL (130-450); RED BLOOD COUNT 3.26 10^6/uL (4.20-5.40); RED CELL DISTRIBUTION WIDTH 14.5 % (12.0-15.0); WHITE BLOOD COUNT 8.1 x10^3/uL (4.8-10.8)
[2020-06-14] MEDS: PANTOPRAZOLE 40 MG TABLET PO SCH (06:46)
[2020-06-14 06:57] LABS: CALCIUM 8.2 mg/dL (8.5-10.3); MAGNESIUM 1.8 mg/dL (1.7-2.8); PHOSPHORUS 2.9 mg/dL (2.5-4.6)
[2020-06-14] MEDS ORDERED: POTASSIUM CHLORIDE 20 MEQ TABLET PO ONE (07:41)
--- NOTE | 2020-06-14 07:57 | PHARMACY PROGRESS NOTE ---
- Therapy Status Vancomycin regimen day #: 2 Therapy status: Awaiting steady state Basis for treatment: Empirical Treatment indication: G+ BLOOD CULTURE Trough goal: 15-20 - ELIZABETH Risk Risk level for Acute Kidney Injury: Moderate Acute Kidney Injury risk factors: Baseline CrCl <50, IV contrast within 72 hrs, Goal trough >15 - Monitoring and Recommendation Clinical response to treatment: I&O Previous 24 hours 06/12/20 06/13/20 06/14/20 23:59 23:59 23:59 Intake Total 1756.25 3698.152 250 Output Total 1000 1000 1100 Balance 756.25 2698.152 -850 Lab Results 06/14/20 06/13/20 06/12/20 06:40 05:53 05:20 BUN 12 14 18 Creatinine 1.0 1.1 H 1.2 H Estimated GFR (MDRD) 53 L 48 L 43 L 06/11/20 19:45 BUN 16 Creatinine 1.2 H Estimated GFR (MDRD) 43 L Cultures 06/11/20 19:45 Blood Blood Culture - Preliminary NO GROWTH AFTER 2 DAYS 06/11/20 21:10 Blood Blood Culture - Preliminary Monitoring plan: Daily serum creatinine Next trough due prior to maintenance dose #: 4 Next trough due (date/time): 06/16 AT 1630 Areas for additional monitoring: IV to PO when appropriate, Therapy de- escalation based on culture results Pharmacy recommendation: Continue current regime
[2020-06-14] MEDS ORDERED: ROCURONIUM 50 MG/5 ML VIAL IVP ONE (10:40)
[2020-06-14] MEDS ORDERED: ePHEDrine 50 MG/ML VIAL IVP ONE (10:40)
[2020-06-14] MEDS ORDERED: KETAMINE 500 MG/10 ML VIAL IVP ONE (10:40)
[2020-06-14] MEDS ORDERED: MIDAZOLAM 2 MG/2 ML VIAL IVP ONE (10:40)
[2020-06-14] MEDS ORDERED: fentaNYL 100 MCG/2 ML VIAL IVP ONE (10:40)
[2020-06-14] MEDS ORDERED: GLYCOPYRROLATE 1 MG/5 ML VIAL IVP ONE (10:40)
[2020-06-14] MEDS ORDERED: PROPOFOL 200 MG/20 ML VIAL IVP ONE (10:40)
[2020-06-14] MEDS: KETOROLAC 15 MG/ML VIAL IVP PRN ×2 (11:17→22:17)
[2020-06-14] MEDS: CALCIUM CITRATE 250 MG TABLET PO SCH ×2 (11:20→21:20)
[2020-06-14] MEDS: lisinopriL 20 MG TABLET PO SCH ×2 (11:20→21:19)
[2020-06-14] MEDS: polyethylene glycoL 3350 17 GM PACKET PO SCH (11:21)
[2020-06-14] MEDS: CHOLECALCIFEROL 25 MCG TABLET PO SCH (11:22)
[2020-06-14] MEDS: SENNA 8.6 MG TABLET PO SCH ×3 (11:22→21:20)
[2020-06-14] MEDS: ASPIRIN EC 81 MG TABLET PO SCH ×2 (11:22→21:19)
[2020-06-14] MEDS: DOCUSATE SODIUM 250 MG CAPSULE PO SCH (11:23)
[2020-06-14] MEDS: QUEtiapine 25 MG TABLET PO SCH ×2 (11:23→21:20)
[2020-06-14] MEDS: CYANOCOBALAMIN 500 MCG TABLET PO SCH (11:23)
[2020-06-14] MEDS: MEMANTINE 5 MG TABLET PO SCH ×2 (11:24→21:20)
[2020-06-14] MEDS: METOPROLOL TARTRATE 25 MG TABLET PO SCH ×2 (11:24→21:19)
--- NOTE | 2020-06-14 11:40 | PROVIDER PROGRESS NOTE ---
Subjective - Prog Note Date Prog Note Date: 06/14/20 Prog Note Time: 11:37 - Subjective Subjective: Fortunately continues to be quite unhappy being here. She has struck out at the nurses. Does not want a Carroll in and outs why we pulled out. But she is r etaining urine this morning with 1000 cc in her bladder. Blood cultures positive from June 11. Staph epidermidis is grown in 2 of the 4 bottles. Objective - Vital Signs/Intake & Output Vital Signs: Vital Signs x48h Temp Pulse Resp BP BP Pulse Ox 06/14/20 11:24 161/83 H 06/14/20 11:03 37.2 C 74 161/83 H 92 06/14/20 07:51 38.3 C H 78 20 148/79 H 93 06/14/20 04:00 37.4 C 73 20 161/88 H 93 Intake & Output: Intake & Output 06/11/20 06/12/20 06/13/20 06/14/20 23:59 23:59 23:59 23:59 Intake Total 1756.25 3698.152 650 Output Total 15 1000 1000 1100 Balance -15 756.25 2698.152 -450 - Lab Results Fish Bones: 06/14/20 06:40 06/14/20 06:40 Other Labs: Lab Results x24hrs 06/14/20 06/14/20 06/13/20 Range/Units 06:40 06:40 05:53 WBC 8.1 (4.8-10.8) x10^3/uL RBC 3.26 L (4.20-5.40) 10^6/uL Hgb 10.5 L (12.0-16.0) g/dL Hct 31.6 L (37.0-47.0) % MCV 96.9 (81.0-99.0) fL MCH 32.2 H (27.0-31.0) pg MCHC 33.2 (32.0-36.0) g/dL RDW 14.5 (12.0-15.0) % Plt Count 163 (130-450) 10^3/uL MPV 11.1 H (7.9-10.8) fL Neut # (Auto) 6.6 (1.5-6.6) 10^3/uL Lymph # (Auto) 0.6 L (1.5-3.5) 10^3/uL [place] # (Auto) 0.6 (0.0-1.0) 10^3/uL Eos # (Auto) 0.3 (0.0-0.7) 10^3/uL Baso # (Auto) 0.0 (0.0-0.1) 10^3/uL Absolute Nucleated RBC 0.00 x10^3/uL Nucleated RBC % 0.0 /100WBC Sodium 136 (135-145) mmol/L Potassium 3.3 L (3.5-5.0) mmol/L Chloride 101 (101-111) mmol/L Carbon Dioxide 24 (21-32) mmol/L Anion Gap 11.0 (6-13) BUN 12 (6-20) mg/dL Creatinine 1.0 (0.4-1.0) mg/dL Estimated GFR (MDRD) 53 L (>89) Glucose 100 (70-100) mg/dL Calcium 8.2 L (8.5-10.3) mg/dL Phosphorus 2.9 (2.5-4.6) mg/dL Magnesium 1.8 (1.7-2.8) mg/dL Vitamin B12 140 L (180-914) pg/mL Sepsis Event Note (H) - Evaluation Current Stage of Sepsis: Ruled out Assessment/Plan - Problem List (1) Staphylococcus epidermidis bacteremia Impression: Blood cultures positive. They were initially reported positive yesterday. She was started on vancomycin. This morning she is positive for staph epidermidis in 2 out of 4 bottles. Aerobic and anaerobic. She did spike a temperature 38 3 this morning. But white cell count is normal. Unclear if this is contaminant or true infection. They became positive at 48 hours. Plan: Discontinue vancomycin Start Ancef. (2) Closed left femoral fracture Impression: Today is postop day #2 for a postoperative left hip repair. Unfortunately her dementia precludes cooperation with physical therapy. She is in a memory care unit at an assisted living facility. We are trying to ascertain her baseline ambulatory status. Here she is refusing to get up out of bed. We are doing pain control, DVT prophylaxis, and have discontinued the Carroll on June 13. Plan: Continue to work with physical therapy to see if we can get her to longterm for rehab or back to memory care unit at assisted living facility. (3)delirium Patient has baseline confusion and disorientation. Has gotten much worse with delirium June 13. We are wondering if she has postoperative anesthesia effect superimposed on her dementia causing this delirium. She is on Seroquel and memantine since yesterday. Avoiding the use of benzodiazepines at this time. Plan: 1 dose of Haldol today or in the morning tomorrow (4) Atrial flutter, paroxysmal Conclusion/Plan: Rate is controlled. Stable. She is actually been sinus. She is on her home metoprolol. (5) COVID-19 virus detected Conclusion/Plan: Patient presented as Covid positive on admission. She has no fever, no respiratory distress. Continues to be without symptoms. She is still in isolation and will be so until she is Covid negative. Discharge plan is also working with memory care unit to see if she would be able to return there. (6) Hypertension Conclusion/Plan: Blood pressure varies between 139 systolic to 161 systolic. She is on her lisinopril 20 mg twice daily, Lopressor 25 mg twice daily. 160 systolic acceptable in this 80-year-old demented female. If she gets above 180 systolic more than 24 hours, I may add Norvasc. (7) Dementia Conclusion/Plan: Delirium present in the postoperative setting. Avoiding benzodiazepines. Consider Haldol. On her usual home medications. Qualifiers: Encounter type: initial encounter Femur location: other head and neck Qualified Code(s): S72.092A - Other fracture of head and neck of left femur, initial encounter for closed fracture (8) hypokalemia We will supplement with oral potassium today. Recheck tomorrow. (9) acute blood loss anemia due to surgery Admission hemoglobin was 12.7. She has been 10.5 yesterday and today. We will continue to monitor and transfuse if drops below 7 g. Qualifiers: Qualified Code(s): S72.092A - Other fracture of head and neck of left femur, initial encounter for closed fracture
--- NOTE | 2020-06-14 11:42 | PROVIDER PROGRESS NOTE ---
Assessment/Plan - Current Meds Current Meds: Current Medications Generic Name Dose Route Start Last Admin Trade Name Shemar PRN Reason Stop Dose Admin Acetaminophen 1,000 mg 06/12/20 00:00 06/14/20 11:17 Tylenol PO 1,000 mg Q6HR MOOSE Administration Aspirin 81 mg 06/12/20 21:00 06/14/20 11:22 Ecotrin PO 81 mg BID MOOSE Administration Calcium Citrate 250 mg 06/13/20 14:00 06/14/20 11:20 PO 250 mg BID MOOSE Administration Cholecalciferol 50 mcg 06/13/20 17:00 06/14/20 11:22 Vitamin D3 PO 50 mcg DAILY MOOSE Administration Cyanocobalamin 500 mcg 06/13/20 17:00 06/14/20 11:23 Vitamin B-12 PO 500 mcg DAILY MOOSE Administration Docusate Sodium 250 - 500 mg 06/13/20 09:00 06/14/20 11:23 Colace 250mg Capsule PO 500 mg DAILY MOOSE Administration Ketorolac Tromethamine 15 mg 06/11/20 22:00 06/14/20 11:17 Toradol Inj (15mg) IVP 06/16/20 21:59 15 mg Q6H PRN Administration PAIN Lisinopril 20 mg 06/13/20 11:00 06/14/20 11:20 Zestril PO 20 mg BID MOOSE Administration Memantine 10 mg 06/13/20 21:00 06/14/20 11:24 Namenda PO 10 mg BID MOOSE Administration Metoprolol Tartrate 25 mg 06/11/20 22:00 06/14/20 11:24 Lopressor PO 25 mg BID MOOSE Administration Pantoprazole Sodium 40 mg 06/12/20 07:00 06/14/20 06:46 Protonix PO 40 mg QDAC MOOSE Administration Polyethylene Glycol 17 gm 06/13/20 09:00 06/14/20 11:21 Miralax PO 17 gm DAILY MOOSE Administration Quetiapine Fumarate 25 mg 06/14/20 09:00 06/14/20 11:23 Seroquel PO 25 mg DAILY MOOSE Administration Senna 8.6 - 17.2 mg 06/13/20 09:00 06/14/20 11:22 Senokot PO 17.2 mg DAILY MOOSE Administration Sodium Chloride 10 ml 06/11/20 21:23 11/13/20 04:53 Normal Saline Flush 0.9% IVP 10 ml PRN PRN Administration NEEDED PER PROVIDER ORDERS Sodium Chloride 10 ml 06/12/20 17:00 06/14/20 11:19 Normal Saline Flush 0.9% IVP 10 ml 0100,0900,1700 [facility] Administration - Lab Result Fish Bone Diagrams: 06/14/20 06:40 06/14/20 06:40 - Other Other Results/Comments: stable. no signif concerns. will trial flomax for retention Subjective - Subjective Patient Reports: Resting Comfortably (complaints of leg pain) Nursing Reports: Confused (urinary retention. does not tolerate coto, so has had straight cath) Objective Vital Signs: Vital Signs - 24 hr 06/13/20 06/13/20 06/13/20 12:00 13:40 16:00 Temperature 37.1 C 36.9 C Heart Rate [ 86 95 Brachial] Heart Rate [ 76 Supine] Respiratory 19 20 Rate Blood Pressure Blood Pressure 129/79 140/87 H [Right Brachial artery] Blood Pressure 130/88 H [Supine] O2 Saturation 95 95 06/13/20 06/13/20 06/13/20 20:19 22:34 23:51 Temperature 37.4 C Heart Rate [ 113 H 77 Brachial] Heart Rate [ Supine] Respiratory 20 Rate Blood Pressure 173/120 H Blood Pressure 164/93 H 139/90 H [Right Brachial artery] Blood Pressure [Supine] O2 Saturation 93 06/14/20 06/14/20 06/14/20 04:00 07:51 11:03 Temperature 37.4 C 38.3 C H 37.2 C Heart Rate [ 73 78 74 Brachial] Heart Rate [ Supine] Respiratory 20 20 Rate Blood Pressure Blood Pressure 161/88 H 148/79 H 161/83 H [Right Brachial artery] Blood Pressure [Supine] O2 Saturation 93 93 92 06/14/20 11:24 Temperature Heart Rate [ Brachial] Heart Rate [ Supine] Respiratory Rate Blood Pressure 161/83 H Blood Pressure [Right Brachial artery] Blood Pressure [Supine] O2 Saturation Oxygen O2 Source Room air I&O (Last 24 Hrs): Intake and Output Totals x24h 06/12/20 06/13/20 06/14/20 23:59 23:59 23:59 Intake Total 1756.25 3698.152 650 Output Total 1000 1000 1100 Balance 756.25 2698.152 -450 General: Alert, Cooperative Neuro: Other (motor/ sensory intact) Cardiovascular: Other (normal pulses, foot warm and well perfused) Respiratory: No respiratory distress Extremities: Other (dressing intact) - Results Results: Laboratory Results WBC 8.1 x10^3/uL (4.8-10.8) 06/14/20 06:40 RBC 3.26 10^6/uL (4.20-5.40) L 06/14/20 06:40 Hgb 10.5 g/dL (12.0-16.0) L 06/14/20 06:40 Hct 31.6 % (37.0-47.0) L 06/14/20 06:40 MCV 96.9 fL (81.0-99.0) 06/14/20 06:40 MCH 32.2 pg (27.0-31.0) H 06/14/20 06:40 MCHC 33.2 g/dL (32.0-36.0) 06/14/20 06:40 RDW 14.5 % (12.0-15.0) 06/14/20 06:40 Plt Count 163 10^3/uL (130-450) 06/14/20 06:40 MPV 11.1 fL (7.9-10.8) H 06/14/20 06:40 Neut # (Auto) 6.6 10^3/uL (1.5-6.6) 06/14/20 06:40 Lymph # (Auto) 0.6 10^3/uL (1.5-3.5) L 06/14/20 06:40 [place] # (Auto) 0.6 10^3/uL (0.0-1.0) 06/14/20 06:40 Eos # (Auto) 0.3 10^3/uL (0.0-0.7) 06/14/20 06:40 Baso # (Auto) 0.0 10^3/uL (0.0-0.1) 06/14/20 06:40 Absolute Nucleated RBC 0.00 x10^3/uL 06/14/20 06:40 Nucleated RBC % 0.0 /100WBC 06/14/20 06:40 PT 13.0 secs (9.9-12.6) H 06/11/20 19:45 INR 1.2 (0.8-1.2) 06/11/20 19:45 Sodium 136 mmol/L (135-145) 06/14/20 06:40 Potassium 3.3 mmol/L (3.5-5.0) L 06/14/20 06:40 Chloride 101 mmol/L (101-111) 06/14/20 06:40 Carbon Dioxide 24 mmol/L (21-32) 06/14/20 06:40 Anion Gap 11.0 (6-13) 06/14/20 06:40 BUN 12 mg/dL (6-20) 06/14/20 06:40 Creatinine 1.0 mg/dL (0.4-1.0) 06/14/20 06:40 Estimated GFR (MDRD) 53 (>89) L 06/14/20 06:40 Glucose 100 mg/dL (70-100) 06/14/20 06:40 Lactic Acid 1.4 mmol/L (0.5-2.2) 06/11/20 23:30 Calcium 8.2 mg/dL (8.5-10.3) L 06/14/20 06:40 Phosphorus 2.9 mg/dL (2.5-4.6) 06/14/20 06:40 Magnesium 1.8 mg/dL (1.7-2.8) 06/14/20 06:40 Total Bilirubin 0.7 mg/dL (0.2-1.0) 06/11/20 19:45 AST 29 IU/L (10-42) 06/11/20 19:45 ALT 19 IU/L (10-60) 06/11/20 19:45 Alkaline Phosphatase 68 IU/L (42-121) 06/11/20 19:45 Troponin I High Sens 10.5 ng/L (2.3-14.8) 06/11/20 19:45 Total Protein 7.8 g/dL (6.7-8.2) 06/11/20 19:45 Albumin 4.2 g/dL (3.2-5.5) 06/11/20 19:45 Globulin 3.6 g/dL (2.1-4.2) 06/11/20 19:45 Albumin/Globulin Ratio 1.2 (1.0-2.2) 06/11/20 19:45 Vitamin B12 140 pg/mL (180-914) L 06/13/20 05:53 TSH 2.31 uIU/mL (0.34-5.60) 06/12/20 05:20 Urine Color YELLOW 06/11/20 20:10 Urine Clarity CLEAR (CLEAR) 06/11/20 20:10 Urine pH 6.5 PH (5.0-7.5) 06/11/20 20:10 Ur Specific [place] 1.025 (1.002-1.030) 06/11/20 20:10 Urine Protein NEGATIVE mg/dL (NEGATIVE) 06/11/20 20:10 Urine Glucose (UA) NEGATIVE mg/dL (NEGATIVE) 06/11/20 20:10 Urine Ketones 15 mg/dL (NEGATIVE) H 06/11/20 20:10 Urine Occult Blood TRACE-INTA (NEGATIVE) 06/11/20 20:10 Urine Nitrite NEGATIVE (NEGATIVE) 06/11/20 20:10 Urine Bilirubin NEGATIVE (NEGATIVE) 06/11/20 20:10 Urine Urobilinogen 0.2 (NORMAL) E.U./dL (NORMAL) 06/11/20 20:10 Ur Leukocyte Esterase NEGATIVE (NEGATIVE) 06/11/20 20:10 Urine RBC 0-5 /HPF (0-5) 06/11/20 20:10 Urine WBC 0-3 /HPF (0-5) 06/11/20 20:10 Ur Squamous Epith Cells RARE Squamous (<= Few) 06/11/20 20:10 Urine Bacteria None Seen /HPF (None Seen) 06/11/20 20:10 Urine Culture Comments NOT INDICATED 06/11/20 20:10 Nasal Adenovirus (PCR) NOT DETECTED 06/11/20 21:17 Nasal B. parapertussis DNA (PCR) NOT DETECTED 06/11/20 21:17 Nasal Coronavir 229E PCR NOT DETECTED 06/11/20 21:17 Nasal Coronavir HKU1 PCR NOT DETECTED 06/11/20 21:17 Nasal Coronavir NL63 PCR NOT DETECTED 06/11/20 21:17 Nasal Coronavir OC43 PCR NOT DETECTED 06/11/20 21:17 Nasal Enterovir/Rhinovir PCR NOT DETECTED 06/11/20 21:17 Nasal Influenza B PCR NOT DETECTED 06/11/20 21:17 Nasal Parainfluen 1 PCR NOT DETECTED 06/11/20 21:17 Nasal Parainfluen 2 PCR NOT DETECTED 06/11/20 21:17 Nasal Parainfluen 3 PCR NOT DETECTED 06/11/20 21:17 Nasal Parainfluen 4 PCR NOT DETECTED 06/11/20 21:17 Nasal RSV (PCR) NOT DETECTED 06/11/20 21:17 Nasal B.pertussis DNA PCR NOT DETECTED 06/11/20 21:17 Nasal C.pneumoniae (PCR) NOT DETECTED 06/11/20 21:17 Farooq Human Metapneumo PCR NOT DETECTED 06/11/20 21:17 Nasal M.pneumoniae (PCR) NOT DETECTED 06/11/20 21:17 Nasal SARS-CoV-2 (PCR) DETECTED A 06/11/20 21:17 Sepsis Event Note (H) - Evaluation Current Stage of Sepsis: Ruled out
[2020-06-14] MEDS: ceFAZolin 2 GM in SODIUM CHLORIDE 0.9% 100ML 100 ML IV SCH ×2 (12:32→21:19)
[2020-06-14] MEDS: TAMSULOSIN 0.4 MG CAPSULE PO SCH (12:33)
[2020-06-14] MEDS: SODIUM CHLORIDE FLUSH 0.9% 10 ML SYRINGE IVP PRN (12:46)
[2020-06-14] MEDS ORDERED: VANCOMYCIN INJ 1 GM in SODIUM CHLORIDE 0.9% 250 ML IV SCH (17:00)
[2020-06-14 19:13] LABS: C. PNEUMONIAE- RESP PCR PANEL NOT DETECTED
[2020-06-14] MEDS ORDERED: SODIUM CHLORIDE 0.9% 250 ML IV PRN (22:24)
[2020-06-15] MEDS: ACETAMINOPHEN 500 MG TABLET PO SCH ×4 (01:27→17:50)
[2020-06-15] MEDS: SODIUM CHLORIDE FLUSH 0.9% 10 ML SYRINGE IVP SCH ×3 (01:28→17:11)
[2020-06-15] MEDS: ceFAZolin 2 GM in SODIUM CHLORIDE 0.9% 100ML 100 ML IV SCH ×3 (05:06→20:45)
[2020-06-15] MEDS: SODIUM CHLORIDE FLUSH 0.9% 10 ML SYRINGE IVP PRN (05:24)
[2020-06-15 07:05] LABS: BASOPHILS % (AUTO) 0.4 %; EOSINOPHILS # (AUTO) 0.5 10^3/uL (0.0-0.7); EOSINOPHILS % (AUTO) 6.9 %; HGB - HEMOGLOBIN 9.3 g/dL (12.0-16.0); LYMPHOCYTES % (AUTO) 13.8 %; MEAN CORPUSCULAR HEMOGLOBIN 32.4 pg (27.0-31.0); MEAN CORPUSCULAR HGB CONC 34.2 g/dL (32.0-36.0); MEAN CORPUSCULAR VOLUME 94.8 fL (81.0-99.0); MEAN PLATELET VOLUME 11.2 fL (7.9-10.8); MONOCYTES # (AUTO) 0.5 10^3/uL (0.0-1.0); MONOCYTES % (AUTO) 6.6 %; PLT - PLATELET COUNT 169 10^3/uL (130-450); RED BLOOD COUNT 2.87 10^6/uL (4.20-5.40); RED CELL DISTRIBUTION WIDTH 14.7 % (12.0-15.0)
[2020-06-15 07:19] LABS: CALCIUM 8.3 mg/dL (8.5-10.3); CREATININE 1.2 mg/dL (0.4-1.0); MAGNESIUM 1.9 mg/dL (1.7-2.8); PHOSPHORUS 3.1 mg/dL (2.5-4.6)
--- NOTE | 2020-06-15 07:54 | PROVIDER PROGRESS NOTE ---
Subjective - Prog Note Date Prog Note Date: 06/15/20 Prog Note Time: 07:56 - Subjective Subjective: She sleeps comfortably. Cooperates with getting up to go to the bathroom. She is on scheduled pain medicine to make sure pain is not the problem. She has been having urinary retention and Carroll had to be put in this morning. DVT prophylaxis is SCDs and compression.Yesterday physical therapy was unable to work with her. Nor was nursing staff to get her out of bed. She will eat sometimes. Current Medications - Current Medications Current Medications: Active Medications Acetaminophen (Tylenol) 1,000 mg PO Q6HR [facility] Last Admin: 06/15/20 07:00 Dose: 1,000 mg Documented by: Aspirin (Ecotrin) 81 mg PO BID [facility] Last Admin: 06/14/20 21:19 Dose: 81 mg Documented by: Bisacodyl (Dulcolax Supp) 10 mg [place] Q12H PRN PRN Reason: Constipation Last Admin: 06/14/20 22:23 Dose: 10 mg Documented by: Calcium Citrate () 250 mg PO BID [facility] Last Admin: 06/14/20 21:20 Dose: 250 mg Documented by: Cholecalciferol (Vitamin D3) 50 mcg PO DAILY [facility] Last Admin: 06/14/20 11:22 Dose: 50 mcg Documented by: Cyanocobalamin (Vitamin B-12) 500 mcg PO DAILY [facility] Last Admin: 06/14/20 11:23 Dose: 500 mcg Documented by: Docusate Sodium (Colace 250mg Capsule) 250 - 500 mg PO DAILY [facility] Last Admin: 06/14/20 11:23 Dose: 500 mg Documented by: Hydromorphone HCl (Dilaudid Inj Syringe) 0.2 mg IVP Q2H PRN PRN Reason: Pain 8 to 10 Cefazolin Sodium 2 gm/ Sodium (Chloride) 100 mls @ 200 mls/hr IV Q8H [facility] Last Infusion: 06/15/20 05:36 Dose: Infused Documented by: Sodium Chloride (Normal Saline 0.9%) 250 mls @ 85 mls/hr IV Q24H PRN PRN Reason: TKO RATE Ketorolac Tromethamine (Toradol Inj (15mg)) 15 mg IVP Q6H PRN PRN Reason: PAIN Stop: 06/16/20 21:59 Last Admin: 06/14/20 22:17 Dose: 15 mg Documented by: Lisinopril (Zestril) 20 mg PO BID [facility] Last Admin: 06/14/20 21:19 Dose: 20 mg Documented by: Memantine (Namenda) 10 mg PO BID [facility] Last Admin: 06/14/20 21:20 Dose: 10 mg Documented by: Metoprolol Tartrate (Lopressor) 25 mg PO BID [facility] Last Admin: 06/14/20 21:19 Dose: 25 mg Documented by: Ondansetron HCl (Zofran Inj) 4 mg IVP Q6HR PRN PRN Reason: Nausea / Vomiting Oxycodone HCl (Roxicodone) 2.5 mg PO Q4HR PRN PRN Reason: PAIN 5-7 Pantoprazole Sodium (Protonix) 40 mg PO QDAC [facility] Last Admin: 06/14/20 06:46 Dose: 40 mg Documented by: Polyethylene Glycol (Miralax) 17 gm PO DAILY [facility] Last Admin: 06/14/20 11:21 Dose: 17 gm Documented by: Quetiapine Fumarate (Seroquel) 25 mg PO DAILY [facility] Last Admin: 06/14/20 11:23 Dose: 25 mg Documented by: Quetiapine Fumarate (Seroquel) 50 mg PO QPM [facility] Last Admin: 06/14/20 21:20 Dose: 50 mg Documented by: Senna (Senokot) 8.6 - 17.2 mg PO BID [facility] Last Admin: 06/14/20 21:20 Dose: Not Given Documented by: Sodium Chloride (Normal Saline Flush 0.9%) 10 ml IVP PRN PRN PRN Reason: NEEDED PER PROVIDER ORDERS Last Admin: 06/15/20 05:24 Dose: 10 ml Documented by: Sodium Chloride (Normal Saline Flush 0.9%) 10 ml IVP 0100,0900,1700 [facility] Last Admin: 06/15/20 01:28 Dose: 10 ml Documented by: Sodium Chloride (Normal Saline Flush 0.9%) 10 ml IVP PRN PRN PRN Reason: NEEDED PER PROVIDER ORDERS Tamsulosin HCl (Flomax) 0.4 mg PO DAILY [facility] Last Admin: 06/14/20 12:33 Dose: 0.4 mg Documented by: Memantine HCl [Namenda] 10 mg PO BID 01/24/18 lisinopriL [Lisinopril] 20 mg PO BID 01/24/18 QUEtiapine [SEROquel] 25 mg PO DAILY 05/19/19 Acetaminophen [Tylenol] 325 mg PO PRN PRN 06/12/20 QUEtiapine [SEROquel] 50 mg PO QPM 06/12/20 Objective - Vital Signs/Intake & Output Reviewed Vital Signs: Yes Vital Signs: Vital Signs x48h Temp Pulse Resp BP Pulse Ox 06/15/20 01:28 36.6 C 61 20 108/60 95 Intake & Output: Intake & Output 06/12/20 06/13/20 06/14/20 06/15/20 23:59 23:59 23:59 23:59 Intake Total 1756.25 3698.152 1050.333 100 Output Total 1000 1000 2300 500 Balance 756.25 2698.152 -1249.667 -400 - Objective General Appearance: positive: Alert, Other (Completely disoriented. This female is described as with total disorientation but pleasant, cooperative, and ambulatory within her memory care unit. She has been bedbound since her hip fracture, disoriented, and combative and frightened.) Eyes Bilateral: positive: PERRL, EOMI ENT: positive: No signs of dehydration Neck: positive: No JVD Respiratory: positive: No respiratory distress. negative: Wheezes, Rales, Rhonchi Cardiovascular: positive: Regular rate & rhythm, Systolic murmur. negative: Gallop/S4, Friction rub Skin: positive: Warm, Dry, Other (Wound is clean, dry. Covered by dressing. No redness or heat.) Extremities: positive: Full ROM, No pedal edema Neurologic/Psychiatric: positive: CN's nml (2-12), Motor nml, Disoriented to person, Disoriented to place, Disoriented to time - Lab Results Fish Bones: 06/15/20 06:50 06/15/20 06:50 Other Labs: Lab Results x24hrs 06/15/20 06/15/20 06/14/20 Range/Units 06:50 06:50 17:40 WBC 7.0 (4.8-10.8) x10^3/uL RBC 2.87 L (4.20-5.40) 10^6/uL Hgb 9.3 L (12.0-16.0) g/dL Hct 27.2 L (37.0-47.0) % MCV 94.8 (81.0-99.0) fL MCH 32.4 H (27.0-31.0) pg MCHC 34.2 (32.0-36.0) g/dL RDW 14.7 (12.0-15.0) % Plt Count 169 (130-450) 10^3/uL MPV 11.2 H (7.9-10.8) fL Neut # (Auto) 5.0 (1.5-6.6) 10^3/uL Lymph # (Auto) 1.0 L (1.5-3.5) 10^3/uL [place] # (Auto) 0.5 (0.0-1.0) 10^3/uL Eos # (Auto) 0.5 (0.0-0.7) 10^3/uL Baso # (Auto) 0.0 (0.0-0.1) 10^3/uL Absolute Nucleated RBC 0.00 x10^3/uL Nucleated RBC % 0.0 /100WBC Sodium 139 (135-145) mmol/L Potassium 3.7 (3.5-5.0) mmol/L Chloride 105 (101-111) mmol/L Carbon Dioxide 24 (21-32) mmol/L Anion Gap 10.0 (6-13) BUN 23 H (6-20) mg/dL Creatinine 1.2 H (0.4-1.0) mg/dL Estimated GFR (MDRD) 43 L (>89) Glucose 97 (70-100) mg/dL Calcium 8.3 L (8.5-10.3) mg/dL Phosphorus 3.1 (2.5-4.6) mg/dL Magnesium 1.9 (1.7-2.8) mg/dL Nasal Adenovirus (PCR) NOT DETECTED Nasal B. parapertussis DNA (PCR) NOT DETECTED Nasal Coronavir 229E PCR NOT DETECTED Nasal Coronavir HKU1 PCR NOT DETECTED Nasal Coronavir NL63 PCR NOT DETECTED Nasal Coronavir OC43 PCR NOT DETECTED Nasal Enterovir/Rhinovir PCR NOT DETECTED Nasal Influenza B PCR NOT DETECTED Nasal Influenza A PCR NOT DETECTED Nasal Parainfluen 1 PCR NOT DETECTED Nasal Parainfluen 2 PCR NOT DETECTED Nasal Parainfluen 3 PCR NOT DETECTED Nasal Parainfluen 4 PCR NOT DETECTED Nasal RSV (PCR) NOT DETECTED Nasal B.pertussis DNA PCR NOT DETECTED Nasal C.pneumoniae (PCR) NOT DETECTED [place] Human Metapneumo PCR NOT DETECTED Nasal M.pneumoniae (PCR) NOT DETECTED Nasal SARS-CoV-2 (PCR) DETECTED A ABX Reporting Has patient been on IV antibiotics over the past 48 hours?: Yes Sepsis Event Note (H) - Evaluation Current Stage of Sepsis: Ruled out Assessment/Plan - Problem List (1) Staphylococcus epidermidis bacteremia Impression: Blood cultures positive. They were initially reported positive 06/13 after being drawn 06/11. She was started on vancomycin. 06/14 she was identified as for staph epidermidis in 2 out of 4 bottles. Aerobic and anaerobic. She did spike a temperature 38.3 06/14 am. But white cell count is normal. Unclear if this is contaminant or true infection. Vancomycin dc'd and now on ancef Day #2. No further temperature spikes. Plan: Day #3 abx overal. Plan for 7 then dc. equivocal clinical relevancy since they wer (+) 48 hours after being done and 2 in same set were (+). I am keeping the Ancef on board for the temperature she spiked. (2) Closed left femoral fracture Impression: Today is postop day #3 for a postoperative left hip repair. Unfortunately her dementia precludes cooperation with physical therapy. She is in a memory care unit at an assisted living facility. Baseline ambulatory status is a very pleasantly demented person who walks freely within the unit. She is roomed with her . Here she is refusing to get up out of bed. We are doing pain control, DVT prophylaxis, and have discontinued the Carroll on June 13. Plan: Continue to work with physical therapy to see if we can get her to long-term for rehab or back to memory care unit at assisted living facility.She is Covid positive. No symptoms. Social work working on where she will be placed for rehab. (3)delirium Patient has baseline confusion and disorientation. Has gotten much worse with delirium June 13. We are wondering if she has postoperative anesthesia effect superimposed on her dementia causing this delirium. She is on Seroquel and memantine since yesterday. Avoiding the use of benzodiazepines at this time. Plan: Haldol has not had to be used yet. But if behavior becomes completely uncontrolled may have to use it. Right now stable. (4) Atrial flutter, paroxysmal Conclusion/Plan: Rate is controlled. Stable. She is actually been sinus. She is on her home metoprolol. (5) COVID-19 virus detected Conclusion/Plan: Patient presented as Covid positive on admission. She has no fever, no respiratory distress. Continues to be without symptoms. She is still in isolation and will be so until she is Covid negative. Discharge plan is also working with memory care unit to see if she would be able to return there. Her son wanted a repeat Covid test done because he thought it was a false positive. Repeat Covid test done June 14 is still positive. (6) Hypertension Conclusion/Plan: Blood pressure 108 systolic this morning. However is been varying between 126 and 161 prior to that. She has no symptoms with this. From what she can tell us there is no chest pain, shortness of breath.She is on her lisinopril 20 mg twice daily, Lopressor 25 mg twice daily. 160 systolic acceptable in this 80-year-old demented female. If she gets above 180 systolic more than 24 hours, I may add Norvasc. (7) Dementia Conclusion/Plan: Delirium present in the postoperative setting. Avoiding benzodiazepines. We will consider Haldol if necessary.. On her usual home medications. Qualifiers: Encounter type: initial encounter Femur location: other head and neck Qualified Code(s): S72.092A - Other fracture of head and neck of left femur, initial encounter for closed fracture (8) hypokalemia Potassium was 3.3 on June 14. Supplemented and she is 3.7 on follow-up. (9) acute blood loss anemia due to surgery Admission hemoglobin was 12.7. She was 10.5 on postop day 1 and 2. Today on postop day 3 she is 9.3. We will continue to monitor and transfuse if drops below 7 g. (2) Closed left femoral fracture Qualifiers: Qualified Code(s): S72.092A - Other fracture of head and neck of left femur, initial encounter for closed fracture
--- NOTE | 2020-06-15 11:05 | PROVIDER PROGRESS NOTE ---
Subjective - Prog Note Date Prog Note Date: 06/15/20 - Subjective Subjective: No voiced concerns. Pleasantly confused Objective - Vital Signs/Intake & Output Reviewed Vital Signs: Yes Vital Signs: Vital Signs x48h Temp Pulse Resp BP Pulse Ox 06/15/20 08:14 36.3 C L 67 18 150/53 H 95 Intake & Output: Intake & Output 06/12/20 06/13/20 06/14/20 06/15/20 23:59 23:59 23:59 23:59 Intake Total 1756.25 3698.152 1050.333 100 Output Total 1000 1000 2300 500 Balance 756.25 2698.152 -3389.667 -400 - Objective General Appearance: positive: No acute distress Eyes Bilateral: positive: PERRL Cardiovascular: positive: Other (Warm well perfused extremity) Skin: positive: Other (Dressing intact) - Lab Results Fish Bones: 06/15/20 06:50 06/15/20 06:50 Other Labs: Lab Results x24hrs 06/15/20 06/15/20 06/14/20 Range/Units 06:50 06:50 17:40 WBC 7.0 (4.8-10.8) x10^3/uL RBC 2.87 L (4.20-5.40) 10^6/uL Hgb 9.3 L (12.0-16.0) g/dL Hct 27.2 L (37.0-47.0) % MCV 94.8 (81.0-99.0) fL MCH 32.4 H (27.0-31.0) pg MCHC 34.2 (32.0-36.0) g/dL RDW 14.7 (12.0-15.0) % Plt Count 169 (130-450) 10^3/uL MPV 11.2 H (7.9-10.8) fL Neut # (Auto) 5.0 (1.5-6.6) 10^3/uL Lymph # (Auto) 1.0 L (1.5-3.5) 10^3/uL [place] # (Auto) 0.5 (0.0-1.0) 10^3/uL Eos # (Auto) 0.5 (0.0-0.7) 10^3/uL Baso # (Auto) 0.0 (0.0-0.1) 10^3/uL Absolute Nucleated RBC 0.00 x10^3/uL Nucleated RBC % 0.0 /100WBC Sodium 139 (135-145) mmol/L Potassium 3.7 (3.5-5.0) mmol/L Chloride 105 (101-111) mmol/L Carbon Dioxide 24 (21-32) mmol/L Anion Gap 10.0 (6-13) BUN 23 H (6-20) mg/dL Creatinine 1.2 H (0.4-1.0) mg/dL Estimated GFR (MDRD) 43 L (>89) Glucose 97 (70-100) mg/dL Calcium 8.3 L (8.5-10.3) mg/dL Phosphorus 3.1 (2.5-4.6) mg/dL Magnesium 1.9 (1.7-2.8) mg/dL Nasal Adenovirus (PCR) NOT DETECTED Nasal B. parapertussis DNA (PCR) NOT DETECTED Nasal Coronavir 229E PCR NOT DETECTED Nasal Coronavir HKU1 PCR NOT DETECTED Nasal Coronavir NL63 PCR NOT DETECTED Nasal Coronavir OC43 PCR NOT DETECTED Nasal Enterovir/Rhinovir PCR NOT DETECTED Nasal Influenza B PCR NOT DETECTED Nasal Influenza A PCR NOT DETECTED Nasal Parainfluen 1 PCR NOT DETECTED Nasal Parainfluen 2 PCR NOT DETECTED Nasal Parainfluen 3 PCR NOT DETECTED Nasal Parainfluen 4 PCR NOT DETECTED Nasal RSV (PCR) NOT DETECTED Nasal B.pertussis DNA PCR NOT DETECTED Nasal C.pneumoniae (PCR) NOT DETECTED [place] Human Metapneumo PCR NOT DETECTED Nasal M.pneumoniae (PCR) NOT DETECTED Nasal SARS-CoV-2 (PCR) DETECTED A Sepsis Event Note (H) - Evaluation Current Stage of Sepsis: Ruled out Assessment/Plan - Problem List (1) Closed left femoral fracture Impression: Stable POD 3. No nursing concerns. Continue with same management. WBAT without restrictions. Dressing change today. Follow up 10-14 days for staple removal. F/U at 6 weeks with XR. aspirin 81mg po BID x 28 days for DVT prophylaxis Qualifiers: Qualified Code(s): S72.092A - Other fracture of head and neck of left femur, initial encounter for closed fracture
[2020-06-15] MEDS ORDERED: SODIUM CHLORIDE 0.9% 100ML 100 ML IV ONE (11:13)
[2020-06-15] MEDS: ASPIRIN EC 81 MG TABLET PO SCH ×2 (11:56→21:33)
[2020-06-15] MEDS: CALCIUM CITRATE 250 MG TABLET PO SCH ×2 (11:56→21:33)
[2020-06-15] MEDS: MEMANTINE 5 MG TABLET PO SCH ×2 (11:57→21:33)
[2020-06-15] MEDS: PANTOPRAZOLE 40 MG TABLET PO SCH (11:57)
[2020-06-15] MEDS: KETOROLAC 15 MG/ML VIAL IVP PRN (11:57)
[2020-06-15] MEDS: CYANOCOBALAMIN 500 MCG TABLET PO SCH (11:58)
[2020-06-15] MEDS: DOCUSATE SODIUM 250 MG CAPSULE PO SCH (11:58)
[2020-06-15] MEDS: QUEtiapine 25 MG TABLET PO SCH ×2 (11:59→21:35)
[2020-06-15] MEDS: lisinopriL 20 MG TABLET PO SCH ×2 (12:00→21:33)
[2020-06-15] MEDS: METOPROLOL TARTRATE 25 MG TABLET PO SCH ×2 (12:01→21:33)
[2020-06-15] MEDS: polyethylene glycoL 3350 17 GM PACKET PO SCH (12:02)
[2020-06-15] MEDS: TAMSULOSIN 0.4 MG CAPSULE PO SCH (12:02)
[2020-06-15] MEDS: SENNA 8.6 MG TABLET PO SCH ×2 (12:02→21:35)
[2020-06-15] MEDS: CHOLECALCIFEROL 25 MCG TABLET PO SCH (12:03)
[2020-06-15] MEDS: SODIUM CHLORIDE 0.9% 1,000 ML IV SCH (12:09)
[2020-06-15] MEDS ORDERED: hydrALAZINE INJ 20 MG/ML VIAL IVP ONE (16:13)
[2020-06-16] MEDS: SODIUM CHLORIDE 0.9% 1,000 ML IV SCH ×2 (00:15→12:20)
[2020-06-16] MEDS: ACETAMINOPHEN 500 MG TABLET PO SCH ×4 (00:17→18:09)
[2020-06-16] MEDS: SODIUM CHLORIDE FLUSH 0.9% 10 ML SYRINGE IVP SCH ×3 (00:18→18:09)
[2020-06-16] MEDS: ceFAZolin 2 GM in SODIUM CHLORIDE 0.9% 100ML 100 ML IV SCH ×3 (05:11→20:45)
--- NOTE | 2020-06-16 07:43 | PROVIDER PROGRESS NOTE ---
Subjective - Prog Note Date Prog Note Date: 06/16/20 Prog Note Time: 07:34 - Subjective Subjective: she has had no new problems. same vitals, low grade fever. dementia with delirium present but less combative without anything but nursing prompting. Current Medications - Current Medications Current Medications: Active Medications Acetaminophen (Tylenol) 1,000 mg PO Q6HR [facility] Last Admin: 06/16/20 07:14 Dose: 1,000 mg Documented by: Aspirin (Ecotrin) 81 mg PO BID [facility] Last Admin: 06/15/20 21:33 Dose: 81 mg Documented by: Bisacodyl (Dulcolax Supp) 10 mg [place] Q12H PRN PRN Reason: Constipation Last Admin: 06/14/20 22:23 Dose: 10 mg Documented by: Calcium Citrate () 250 mg PO BID [facility] Last Admin: 06/15/20 21:33 Dose: 250 mg Documented by: Cholecalciferol (Vitamin D3) 50 mcg PO DAILY [facility] Last Admin: 06/15/20 12:03 Dose: 50 mcg Documented by: Cyanocobalamin (Vitamin B-12) 500 mcg PO DAILY [facility] Last Admin: 06/15/20 11:58 Dose: 500 mcg Documented by: Docusate Sodium (Colace 250mg Capsule) 250 - 500 mg PO DAILY [facility] Last Admin: 06/15/20 11:58 Dose: 250 mg Documented by: Hydromorphone HCl (Dilaudid Inj Syringe) 0.2 mg IVP Q2H PRN PRN Reason: Pain 8 to 10 Cefazolin Sodium 2 gm/ Sodium (Chloride) 100 mls @ 200 mls/hr IV Q8H [facility] Last Admin: 06/16/20 05:11 Dose: 200 mls/hr Documented by: Sodium Chloride (Normal Saline 0.9%) 1,000 mls @ 85 mls/hr IV .[id number] [facility] Last Admin: 06/16/20 00:15 Dose: 85 mls/hr Documented by: Ketorolac Tromethamine (Toradol Inj (15mg)) 15 mg IVP Q6H PRN PRN Reason: PAIN Stop: 06/16/20 21:59 Last Admin: 06/15/20 11:57 Dose: 15 mg Documented by: Lisinopril (Zestril) 20 mg PO BID [facility] Last Admin: 06/15/20 21:33 Dose: 20 mg Documented by: Memantine (Namenda) 10 mg PO BID [facility] Last Admin: 06/15/20 21:33 Dose: 10 mg Documented by: Metoprolol Tartrate (Lopressor) 25 mg PO BID [facility] Last Admin: 06/15/20 21:33 Dose: 25 mg Documented by: Ondansetron HCl (Zofran Inj) 4 mg IVP Q6HR PRN PRN Reason: Nausea / Vomiting Oxycodone HCl (Roxicodone) 2.5 mg PO Q4HR PRN PRN Reason: PAIN 5-7 Pantoprazole Sodium (Protonix) 40 mg PO QDAC [facility] Last Admin: 06/15/20 11:57 Dose: 40 mg Documented by: Polyethylene Glycol (Miralax) 17 gm PO DAILY [facility] Last Admin: 06/15/20 12:02 Dose: 17 gm Documented by: Quetiapine Fumarate (Seroquel) 25 mg PO DAILY [facility] Last Admin: 06/15/20 11:59 Dose: 25 mg Documented by: Quetiapine Fumarate (Seroquel) 50 mg PO QPM [facility] Last Admin: 06/15/20 21:35 Dose: 50 mg Documented by: Senna (Senokot) 8.6 - 17.2 mg PO BID [facility] Last Admin: 06/15/20 21:35 Dose: 8.6 mg Documented by: Sodium Chloride (Normal Saline Flush 0.9%) 10 ml IVP PRN PRN PRN Reason: NEEDED PER PROVIDER ORDERS Last Admin: 06/15/20 05:24 Dose: 10 ml Documented by: Sodium Chloride (Normal Saline Flush 0.9%) 10 ml IVP 0100,0900,1700 [facility] Last Admin: 06/16/20 00:18 Dose: Not Given Documented by: Sodium Chloride (Normal Saline Flush 0.9%) 10 ml IVP PRN PRN PRN Reason: NEEDED PER PROVIDER ORDERS Tamsulosin HCl (Flomax) 0.4 mg PO DAILY [facility] Last Admin: 06/15/20 12:02 Dose: 0.4 mg Documented by: Memantine HCl [Namenda] 10 mg PO BID 01/24/18 lisinopriL [Lisinopril] 20 mg PO BID 01/24/18 QUEtiapine [SEROquel] 25 mg PO DAILY 05/19/19 Acetaminophen [Tylenol] 325 mg PO PRN PRN 06/12/20 QUEtiapine [SEROquel] 50 mg PO QPM 06/12/20 Objective - Vital Signs/Intake & Output Reviewed Vital Signs: Yes Vital Signs: Vital Signs x48h Temp Pulse Resp BP Pulse Ox 06/16/20 00:15 37.6 C H 70 18 162/81 H 94 Intake & Output: Intake & Output 06/13/20 06/14/20 06/15/20 06/16/20 23:59 23:59 23:59 23:59 Intake Total 3698.152 1449.958 2075 427.917 Output Total 1000 2300 1900 350 Balance 2698.152 -1249.667 -449 77.917 - Objective General Appearance: positive: Alert Eyes Bilateral: positive: EOMI ENT: positive: No signs of dehydration Neck: positive: No JVD. negative: Stiff neck Respiratory: positive: No respiratory distress, Other (decreased sounds at the bases but no resp distress). negative: Wheezes, Rales, Rhonchi Cardiovascular: positive: Regular rate & rhythm, Systolic murmur. negative: Gallop/S4, Friction rub Abdomen: positive: Non-tender, No organomegaly, Nml bowel sounds, No distention Skin: positive: Other (ecchymoses at blood draw sites and IV sites.) Extremities: positive: Full ROM, No pedal edema, Other (she moves her affected leg) Neurologic/Psychiatric: positive: CN's nml (2-12), Motor nml (but she resists PT or nursing care. won't sit up or get out of bed without lots and lots of coaxing.), Disoriented to person, Disoriented to place, Disoriented to time - Lab Results Fish Bones: 06/15/20 06:50 06/15/20 06:50 ABX Reporting Has patient been on IV antibiotics over the past 48 hours?: Yes Sepsis Event Note (H) - Evaluation Current Stage of Sepsis: Ruled out Assessment/Plan - Problem List (1) Staphylococcus epidermidis bacteremia Impression: Blood cultures positive. They were initially reported positive 06/13 after being drawn 06/11. She was started on vancomycin. 06/14 she was identified as for staph epidermidis in 2 out of 4 bottles. Aerobic and anaerobic. She did spike a temperature 38.3 06/14 am. But white cell count is normal. Unclear if this is contaminant or true infection. Vancomycin dc'd and now on ancef Day #3. Temp 37.3 this am. Repeat blood cultures 06/14 are negative for bacteremia. Plan: Day #4 abx overal. Plan for 7 then dc. equivocal clinical relevancy since they were (+) 48 hours after being done and 2 in same set were (+). I am keeping the Ancef on board for the temperature she spiked. (2) Closed left femoral fracture Impression: Today is postop day #4 for a postoperative left hip repair. Unfortunately her dementia precludes cooperation with physical therapy. She is in a memory care unit at an assisted living facility. Baseline ambulatory status is a very pleasantly demented person who walks freely within the unit. She is roomed with her . Here she is refusing to get up out of bed. We are doing pain control, DVT prophylaxis, and have discontinued the Carroll on June 13. Plan: Continue to work with physical therapy to see if we can get her to nursing home for rehab or back to memory care unit at assisted living facility.She is Covid positive. No symptoms. Social work working on where she will be placed for rehab. Overall we are doing limited interventions by now. It is all focused on PT and placing her. We are addressing each problem as listed but they are all stable. Ortho will be signing off and has left in his note: WBAT without restrictions. Dressing change today. Follow up 10-14 days for staple removal. F/U at 6 weeks with XR. aspirin 81mg po BID x 28 days for DVT prophylaxis We are waiting for placement. She has been medically stable since 06/15. (3)delirium Patient has baseline confusion and disorientation. Has gotten much worse with delirium June 13. We are wondering if she has postoperative anesthesia effect superimposed on her dementia causing this delirium. She is on Seroquel and memantine since yesterday. Avoiding the use of benzodiazepines at this time. Overall she is not much improved. Plan: Haldol has not had to be used yet. But if behavior becomes completely uncontrolled may have to use it. Right now stable. (4) Atrial flutter, paroxysmal Conclusion/Plan: Rate is controlled. Stable. She is actually been sinus. She is on her home metoprolol. (5) COVID-19 virus detected Conclusion/Plan: Patient presented as Covid positive on admission. She has no fever, no res piratory distress. Continues to be without symptoms. She is still in isolation and will be so until she is Covid negative. Discharge plan is also working with memory care unit to see if she would be able to return there. Her son wanted a repeat Covid test done because he thought it was a false positive. Repeat Covid test done June 14 is still positive. (6) Hypertension Conclusion/Plan: Blood pressure 162 systolic this morning. varying between 142 to 163. prior to that. From what she can tell us there is no chest pain, shortness of breath.She is on her lisinopril 20 mg twice daily, Lopressor 25 mg twice daily. 160 systolic acceptable in this 80-year-old demented female. If she gets above 180 systolic more than 24 hours, I may add Norvasc. (7) Dementia Conclusion/Plan: Delirium present in the postoperative setting. Avoiding benzodiazepines. We will consider Haldol if necessary.. On her usual home medications. Qualifiers: Encounter type: initial encounter Femur location: other head and neck Qualified Code(s): S72.092A - Other fracture of head and neck of left femur, initial encounter for closed fracture (8) hypokalemia Potassium was 3.3 on June 14. Supplemented and she is 3.7 on follow-up. (9) acute blood loss anemia due to surgery Admission hemoglobin was 12.7. She was 10.5 on postop day 1 and 2. On postop day 3 she was 9.3. I will stop labs and redo in a week if she is still here. (2) Closed left femoral fracture Qualifiers: Qualified Code(s): S72.092A - Other fracture of head and neck of left femur, initial encounter for closed fracture
--- NOTE | 2020-06-16 10:48 | PROVIDER PROGRESS NOTE ---
Subjective - Prog Note Date Prog Note Date: 06/16/20 - Subjective Pt reports feeling: No change Objective - Vital Signs/Intake & Output Reviewed Vital Signs: Yes Vital Signs: Vital Signs x48h Temp Pulse Resp BP Pulse Ox 06/16/20 09:18 36.8 C 71 14 147/63 H 96 Intake & Output: Intake & Output 06/13/20 06/14/20 06/15/20 06/16/20 23:59 23:59 23:59 23:59 Intake Total 3698.152 8346.597 7341 707.917 Output Total 1000 2300 1900 350 Balance 2698.152 -1249.667 -449 357.917 - Objective General Appearance: positive: No acute distress Eyes Bilateral: positive: Normal inspection Skin: positive: Other (dressing intact) Extremities: positive: Other (hip ROM well tolerated) - Lab Results Fish Bones: 06/15/20 06:50 06/15/20 06:50 Sepsis Event Note (H) - Evaluation Current Stage of Sepsis: Ruled out Assessment/Plan - Problem List (1) Closed left femoral fracture Impression: Stable POD 4 hip cezar. Plan to d/c to SNF Qualifiers: Qualified Code(s): S72.092A - Other fracture of head and neck of left femur, initial encounter for closed fracture
[2020-06-16] MEDS ORDERED: CHOLECALCIFEROL 400 UNIT TABLET PO SCH (11:00)
[2020-06-16] MEDS ORDERED: SODIUM CHLORIDE 0.9% 100ML 100 ML IV ONE (11:57)
[2020-06-16] MEDS ORDERED: CALCIUM GLUCONATE 1,000 MG in SODIUM CHLORIDE 0.9% 50 ML IV ONE (12:00)
[2020-06-16] MEDS: polyethylene glycoL 3350 17 GM PACKET PO SCH (12:14)
[2020-06-16] MEDS ORDERED: CYANOCOBALAMIN 1,000 MCG/ML VIAL IM ONE (12:17)
[2020-06-16] MEDS: TAMSULOSIN 0.4 MG CAPSULE PO SCH (12:17)
[2020-06-16] MEDS: METOPROLOL TARTRATE 25 MG TABLET PO SCH ×2 (12:18→20:47)
[2020-06-16] MEDS: lisinopriL 20 MG TABLET PO SCH ×2 (12:18→20:46)
[2020-06-16] MEDS: QUEtiapine 25 MG TABLET PO SCH ×2 (12:18→20:46)
[2020-06-16] MEDS: CALCIUM CITRATE 250 MG TABLET PO SCH ×2 (12:18→20:46)
[2020-06-16] MEDS: MEMANTINE 5 MG TABLET PO SCH ×2 (12:18→20:47)
[2020-06-16] MEDS: ASPIRIN EC 81 MG TABLET PO SCH ×2 (12:19→20:47)
[2020-06-16] MEDS: CHOLECALCIFEROL 25 MCG TABLET PO SCH (12:19)
[2020-06-16] MEDS: PANTOPRAZOLE 40 MG TABLET PO SCH (12:20)
[2020-06-16] MEDS: CYANOCOBALAMIN 500 MCG TABLET PO SCH (12:20)
[2020-06-16] MEDS: DOCUSATE SODIUM 250 MG CAPSULE PO SCH (12:21)
[2020-06-16] MEDS: SENNA 8.6 MG TABLET PO SCH ×2 (12:21→20:47)
--- NOTE | 2020-06-16 20:39 | XRAY Report ---
PROCEDURE: Chest 1 View X-Ray INDICATIONS: fever, lethargy (+) covid TECHNIQUE: One view of the chest was acquired. COMPARISON: None FINDINGS: Surgical changes and devices: None. Lungs and pleura: There are patchy airspace opacities in the right lower lung field. No focal consoli dation. Mediastinum: Mediastinal contours appear normal. Heart size is normal. Bones and chest wall: No suspicious bony lesions. Overlying soft tissues appear unremarkable. IMPRESSION: Patchy right lower lung field airspace opacities consistent with history of coated. Reviewed by: Sharif Hassan on 06/16/2020 8:38 PM [facility] Approved by: Sharif Hassan on 06/16/2020 8:38 PM [facility] Station ID: [id number]
[2020-06-17] MEDS: SODIUM CHLORIDE 0.9% 1,000 ML IV SCH ×3 (00:13→23:16)
[2020-06-17] MEDS: SODIUM CHLORIDE FLUSH 0.9% 10 ML SYRINGE IVP SCH ×3 (00:18→18:10)
[2020-06-17] MEDS: ACETAMINOPHEN 500 MG TABLET PO SCH ×4 (00:31→18:09)
[2020-06-17] MEDS: ceFAZolin 2 GM in SODIUM CHLORIDE 0.9% 100ML 100 ML IV SCH (03:25)
[2020-06-17] MEDS: PANTOPRAZOLE 40 MG TABLET PO SCH (06:16)
--- NOTE | 2020-06-17 08:30 | PROVIDER PROGRESS NOTE ---
Subjective - Prog Note Date Prog Note Date: 06/17/20 - Subjective Subjective: pleasantly confused. no nursing concerns Objective - Vital Signs/Intake & Output Reviewed Vital Signs: Yes Vital Signs: Vital Signs x48h Temp Pulse Resp BP Pulse Ox 06/17/20 08:16 37.4 C 80 18 157/73 H 90 L 06/17/20 03:18 36.8 C 16 92 Intake & Output: Intake & Output 06/14/20 06/15/20 06/16/20 06/17/20 23:59 23:59 23:59 23:59 Intake Total 6206.479 7324 2347.917 1300 Output Total 2300 1900 1300 400 Balance -1249.667 -449 1047.917 900 - Objective General Appearance: positive: No acute distress Eyes Bilateral: positive: Normal inspection Respiratory: positive: No respiratory distress Cardiovascular: positive: Other (warm well perfused foot) Skin: positive: Other (dressing intact) Extremities: positive: Other (hip ecchymoses) - Lab Results Fish Bones: 06/15/20 06:50 06/15/20 06:50 Sepsis Event Note (H) - Evaluation Current Stage of Sepsis: Ruled out Assessment/Plan - Problem List (1) Closed left femoral fracture Impression: stable POD5. awaiting placement which is complicated by COVID positive status. plan to d/c to SNF when possible. d/c eduardo POD 14. follow up in 6 weeks with XR of the hip. Ortho signing off. Qualifiers: Qualified Code(s): S72.092A - Other fracture of head and neck of left femur, initial encounter for closed fracture
[2020-06-17 08:45] LABS: BASOPHILS % (AUTO) 0.4 %; EOSINOPHILS # (AUTO) 0.2 10^3/uL (0.0-0.7); EOSINOPHILS % (AUTO) 2.8 %; LYMPHOCYTES # (AUTO) 0.9 10^3/uL (1.5-3.5); LYMPHOCYTES % (AUTO) 16.6 %; MEAN CORPUSCULAR HEMOGLOBIN 31.8 pg (27.0-31.0); MEAN CORPUSCULAR HGB CONC 32.8 g/dL (32.0-36.0); MEAN CORPUSCULAR VOLUME 96.8 fL (81.0-99.0); MEAN PLATELET VOLUME 10.8 fL (7.9-10.8); MONOCYTES # (AUTO) 0.4 10^3/uL (0.0-1.0); MONOCYTES % (AUTO) 7.3 %; NEUTROPHILS # (AUTO) 3.8 10^3/uL (1.5-6.6); NEUTROPHILS % (AUTO) 71.8 %; PLT - PLATELET COUNT 209 10^3/uL (130-450); RED BLOOD COUNT 2.83 10^6/uL (4.20-5.40); RED CELL DISTRIBUTION WIDTH 14.9 % (12.0-15.0); WHITE BLOOD COUNT 5.3 x10^3/uL (4.8-10.8)
[2020-06-17 08:54] LABS: CALCIUM 7.9 mg/dL (8.5-10.3); CREATININE 0.9 mg/dL (0.4-1.0)
[2020-06-17] MEDS ORDERED: ZOLEDRONIC ACID 5 MG/100 ML IV ONE (09:00)
[2020-06-17] MEDS: lisinopriL 20 MG TABLET PO SCH ×2 (11:43→22:13)
[2020-06-17] MEDS: MEMANTINE 5 MG TABLET PO SCH ×2 (11:44→22:08)
[2020-06-17] MEDS: METOPROLOL TARTRATE 25 MG TABLET PO SCH ×2 (11:44→22:18)
[2020-06-17] MEDS: SENNA 8.6 MG TABLET PO SCH ×2 (11:44→22:13)
[2020-06-17] MEDS: CYANOCOBALAMIN 500 MCG TABLET PO SCH (11:44)
[2020-06-17] MEDS: CALCIUM CITRATE 250 MG TABLET PO SCH ×2 (11:44→22:13)
[2020-06-17] MEDS: CHOLECALCIFEROL 25 MCG TABLET PO SCH (11:44)
[2020-06-17] MEDS: QUEtiapine 25 MG TABLET PO SCH ×2 (11:45→22:13)
[2020-06-17] MEDS: ASPIRIN EC 81 MG TABLET PO SCH ×2 (11:45→22:08)
[2020-06-17] MEDS: DOCUSATE SODIUM 250 MG CAPSULE PO SCH (11:46)
[2020-06-17] MEDS: polyethylene glycoL 3350 17 GM PACKET PO SCH (11:47)
[2020-06-17] MEDS: TAMSULOSIN 0.4 MG CAPSULE PO SCH (11:47)
[2020-06-17 14:12] LABS: C. PNEUMONIAE- RESP PCR PANEL NOT DETECTED
--- NOTE | 2020-06-17 14:18 | PROVIDER PROGRESS NOTE ---
Assessment/Plan - Problem List (1) COVID-19 virus detected Assessment/Plan: Covid 19 continue is still positive in the test. Patient had 3 time positive test. pt has no fever on today, her sat is 98% at 2 liter of O2. clinic pt did not show respiratory distress and cough on today. CXR reveal on yesterday evening patchy right lower lung field airspace opacities. We will continue supplement of oxygen as needed, we already updated pt's medical conditions to pt's DPOA, will continue communicate with pt's family. pt has hx of advanced dementia. (2) Staphylococcus epidermidis bacteremia Impression: it was likely contaminated blood culture. nocturnal provider already hold antibiotics. pt's spotted fever is likely from pt's COvid 19 infection. (3) Closed left femoral fracture Impression: Today is postop day #5 for a postoperative left hip repair. continue pain control, DVT prophylaxis, pt's [place] was already discontinued. Because pt's O2 sat was drop on the morning, PT is hold on today, but will Continue to work with physical therapy to see if we can get her to [facility] or back to memory care unit at assisted living facility. (4)delirium Patient has baseline confusion and disorientation. suspect it might be caused by she has postoperative anesthesia effect superimposed on her dementia, and Covid 19 infection. She is on Seroquel and memantine since yesterday. Avoiding the use of benzodiazepines at this time. continue neur check (5) Atrial flutter, paroxysmal Conclusion/Plan: Rate is controlled. She is actually been sinus. continue metoprolol. (6) Hypertension Conclusion/Plan: stable, continue home meds (7) Dementia Conclusion/Plan: stable as her baseline. pt has Delirium present in the postoperative setting. Avoiding benzodiazepines. (8) hypokalemia Potassium was 3.3, replacement, and lab monitor (9) acute blood loss anemia due to surgery Admission hemoglobin was 12.7. She was 10.5 on postop day 1 and 2. On postop day 4 she was 9. will continue lab monitor now. (2) Closed left femoral fracture Qualifiers: Qualified Code(s): S72.092A - Other fracture of head and neck of left femur, initial encounter for closed fracture - Current Meds Current Meds: Current Medications Generic Name Dose Route Start Last Admin Trade Name Freq PRN Reason Stop Dose Admin Acetaminophen 1,000 mg 06/12/20 00:00 06/17/20 12:35 Tylenol PO 1,000 mg Q6HR MOOSE Administration Aspirin 81 mg 06/12/20 21:00 06/17/20 11:45 Ecotrin PO 81 mg BID MOOSE Administration Bisacodyl 10 mg 06/12/20 15:39 06/14/20 22:23 Dulcolax Supp MT 10 mg Q12H PRN Administration Constipation Calcium Citrate 250 mg 06/13/20 14:00 06/17/20 11:44 PO 250 mg BID MOOSE Administration Cholecalciferol 50 mcg 06/13/20 17:00 06/17/20 11:44 Vitamin D3 PO 50 mcg DAILY MOOSE Administration Cyanocobalamin 500 mcg 06/13/20 17:00 06/17/20 11:44 Vitamin B-12 PO 500 mcg DAILY MOOSE Administration Docusate Sodium 250 - 500 mg 06/13/20 09:00 06/17/20 11:46 Colace 250mg Capsule PO Not Given DAILY [facility] Sodium Chloride 1,000 mls @ 85 mls/hr 06/15/20 09:00 06/17/20 11:23 Normal Saline 0.9% IV 85 mls/hr .[id number] MOOSE Administration Lisinopril 20 mg 06/13/20 11:00 06/17/20 11:43 Zestril PO 20 mg BID MOOSE Administration Memantine 10 mg 06/13/20 21:00 06/17/20 11:44 Namenda PO 10 mg BID MOOSE Administration Metoprolol Tartrate 25 mg 06/11/20 22:00 06/17/20 11:44 Lopressor PO 25 mg BID MOOSE Administration Pantoprazole Sodium 40 mg 06/12/20 07:00 06/17/20 06:16 Protonix PO 40 mg QDAC MOOSE Administration Polyethylene Glycol 17 gm 06/13/20 09:00 06/17/20 11:47 Miralax PO Not Given DAILY [facility] Quetiapine Fumarate 25 mg 06/14/20 09:00 06/17/20 11:45 Seroquel PO 25 mg DAILY MOOSE Administration Quetiapine Fumarate 50 mg 06/14/20 21:00 06/16/20 20:46 Seroquel PO 50 mg QPM MOOSE Administration Senna 8.6 - 17.2 mg 06/14/20 17:51 06/17/20 11:44 Senokot PO 17.2 mg BID MOOSE Administration Sodium Chloride 10 ml 06/11/20 21:23 06/15/20 05:24 Normal Saline Flush 0.9% IVP 10 ml PRN PRN Administration NEEDED PER PROVIDER ORDERS Sodium Chloride 10 ml 06/12/20 17:00 06/17/20 11:47 Normal Saline Flush 0.9% IVP Not Given 0100,0900,1700 MOOSE Tamsulosin HCl 0.4 mg 06/14/20 12:00 06/17/20 11:47 Flomax PO 0.4 mg DAILY MOOSE Administration - Lab Result Fish Bone Diagrams: 06/17/20 08:43 06/17/20 08:43 - Additional Planning My Orders: My Active Orders 06/17/20 Dinner Dysphagia Puree Diet [DIET] 06/18/20 05:00 BMP - BASIC METABOLIC PANEL [CHEM] DAILYLAB CBC - COMP BLD CT W/AUTO DIFF [HEME] DAILYLAB 06/19/20 05:00 BMP - BASIC METABOLIC PANEL [CHEM] DAILYLAB CBC - COMP BLD CT W/AUTO DIFF [HEME] DAILYLAB 06/20/20 05:00 BMP - BASIC METABOLIC PANEL [CHEM] DAILYLAB CBC - COMP BLD CT W/AUTO DIFF [HEME] DAILYLAB 06/21/20 05:00 BMP - BASIC METABOLIC PANEL [CHEM] DAILYLAB CBC - COMP BLD CT W/AUTO DIFF [HEME] DAILYLAB 06/22/20 05:00 BMP - BASIC METABOLIC PANEL [CHEM] DAILYLAB CBC - COMP BLD CT W/AUTO DIFF [HEME] DAILYLAB Subjective - Subjective Nursing Reports: Other (confused) Objective Vital Signs: Vital Signs - 24 hr 06/16/20 06/16/20 06/16/20 15:00 17:27 20:43 Temperature 38.7 C H 37.5 C Heart Rate [ 78 68 82 Brachial] Respiratory 18 18 Rate Blood Pressure Blood Pressure 135/71 H [Left Brachial artery] Blood Pressure 170/66 H 162/81 H [Right Ankle] O2 Saturation 95 97 06/16/20 06/16/20 06/17/20 20:47 22:24 00:16 Temperature 37.4 C 37.8 C H Heart Rate [ 73 71 Brachial] Respiratory 92 H Rate Blood Pressure 162/81 H Blood Pressure 148/65 H 134/61 H [Left Brachial artery] Blood Pressure [Right Ankle] O2 Saturation 20 L 06/17/20 06/17/20 06/17/20 03:18 08:16 10:00 Temperature 36.8 C 37.4 C Heart Rate [ 80 68 Brachial] Respiratory 16 18 Rate Blood Pressure Blood Pressure 157/73 H [Left Brachial artery] Blood Pressure [Right Ankle] O2 Saturation 92 90 L 97 06/17/20 06/17/20 11:44 12:33 Temperature 37.0 C Heart Rate [ 66 Brachial] Respiratory 18 Rate Blood Pressure 133/74 H Blood Pressure 133/74 H [Left Brachial artery] Blood Pressure [Right Ankle] O2 Saturation 98 Oxygen O2 Source Nasal cannula I&O (Last 24 Hrs): Intake and Output Totals x24h 06/15/20 06/16/20 06/17/20 23:59 23:59 23:59 Intake Total 1451 2347.917 2649.167 Output Total 1900 1300 1275 Balance -449 6848.302 1024.167 General: Alert, No acute distress HEENT: Atraumatic Neck: Supple Lymphatic: no adenopathy Neuro: Alert, Non Focal Cardiovascular: Regular rate, Normal S1, Normal S2 Respiratory: Chest non-tender, No respiratory distress Abdomen: Normal bowel sounds, Soft Extremities: Normal pulses - Results Results: Laboratory Results WBC 5.3 x10^3/uL (4.8-10.8) 06/17/20 08:43 RBC 2.83 10^6/uL (4.20-5.40) L 06/17/20 08:43 Hgb 9.0 g/dL (12.0-16.0) L 06/17/20 08:43 Hct 27.4 % (37.0-47.0) L 06/17/20 08:43 MCV 96.8 fL (81.0-99.0) 06/17/20 08:43 MCH 31.8 pg (27.0-31.0) H 06/17/20 08:43 MCHC 32.8 g/dL (32.0-36.0) 06/17/20 08:43 RDW 14.9 % (12.0-15.0) 06/17/20 08:43 Plt Count 209 10^3/uL (130-450) 06/17/20 08:43 MPV 10.8 fL (7.9-10.8) 06/17/20 08:43 Neut # (Auto) 3.8 10^3/uL (1.5-6.6) 06/17/20 08:43 Lymph # (Auto) 0.9 10^3/uL (1.5-3.5) L 06/17/20 08:43 [place] # (Auto) 0.4 10^3/uL (0.0-1.0) 06/17/20 08:43 Eos # (Auto) 0.2 10^3/uL (0.0-0.7) 06/17/20 08:43 Baso # (Auto) 0.0 10^3/uL (0.0-0.1) 06/17/20 08:43 Absolute Nucleated RBC 0.00 x10^3/uL 06/17/20 08:43 Nucleated RBC % 0.0 /100WBC 06/17/20 08:43 PT 13.0 secs (9.9-12.6) H 06/11/20 19:45 INR 1.2 (0.8-1.2) 06/11/20 19:45 Sodium 135 mmol/L (135-145) 06/17/20 08:43 Potassium 3.3 mmol/L (3.5-5.0) L 06/17/20 08:43 Chloride 105 mmol/L (101-111) 06/17/20 08:43 Carbon Dioxide 21 mmol/L (21-32) 06/17/20 08:43 Anion Gap 9.0 (6-13) 06/17/20 08:43 BUN 15 mg/dL (6-20) 06/17/20 08:43 Creatinine 0.9 mg/dL (0.4-1.0) 06/17/20 08:43 Estimated GFR (MDRD) 60 (>89) L 06/17/20 08:43 Glucose 111 mg/dL (70-100) H 06/17/20 08:43 Lactic Acid 1.4 mmol/L (0.5-2.2) 06/11/20 23:30 Calcium 7.9 mg/dL (8.5-10.3) L 06/17/20 08:43 Phosphorus 3.1 mg/dL (2.5-4.6) 06/15/20 06:50 Magnesium 1.9 mg/dL (1.7-2.8) 06/15/20 06:50 Total Bilirubin 0.7 mg/dL (0.2-1.0) 06/11/20 19:45 AST 29 IU/L (10-42) 06/11/20 19:45 ALT 19 IU/L (10-60) 06/11/20 19:45 Alkaline Phosphatase 68 IU/L (42-121) 06/11/20 19:45 Troponin I High Sens 10.5 ng/L (2.3-14.8) 06/11/20 19:45 Total Protein 7.8 g/dL (6.7-8.2) 06/11/20 19:45 Albumin 4.2 g/dL (3.2-5.5) 06/11/20 19:45 Globulin 3.6 g/dL (2.1-4.2) 06/11/20 19:45 Albumin/Globulin Ratio 1.2 (1.0-2.2) 06/11/20 19:45 Vitamin B12 140 pg/mL (180-914) L 06/13/20 05:53 TSH 2.31 uIU/mL (0.34-5.60) 06/12/20 05:20 Urine Color YELLOW 06/11/20 20:10 Urine Clarity CLEAR (CLEAR) 06/11/20 20:10 Urine pH 6.5 PH (5.0-7.5) 06/11/20 20:10 Ur Specific [place] 1.025 (1.002-1.030) 06/11/20 20:10 Urine Protein NEGATIVE mg/dL (NEGATIVE) 06/11/20 20:10 Urine Glucose (UA) NEGATIVE mg/dL (NEGATIVE) 06/11/20 20:10 Urine Ketones 15 mg/dL (NEGATIVE) H 06/11/20 20:10 Urine Occult Blood TRACE-INTA (NEGATIVE) 06/11/20 20:10 Urine Nitrite NEGATIVE (NEGATIVE) 06/11/20 20:10 Urine Bilirubin NEGATIVE (NEGATIVE) 06/11/20 20:10 Urine Urobilinogen 0.2 (NORMAL) E.U./dL (NORMAL) 06/11/20 20:10 Ur Leukocyte Esterase NEGATIVE (NEGATIVE) 06/11/20 20:10 Urine RBC 0-5 /HPF (0-5) 06/11/20 20:10 Urine WBC 0-3 /HPF (0-5) 06/11/20 20:10 Ur Squamous Epith Cells RARE Squamous (<= Few) 06/11/20 20:10 Urine Bacteria None Seen /HPF (None Seen) 06/11/20 20:10 Urine Culture Comments NOT INDICATED 06/11/20 20:10 Nasal Adenovirus (PCR) NOT DETECTED 06/17/20 12:15 Nasal B. parapertussis DNA (PCR) NOT DETECTED 06/17/20 12:15 Nasal Coronavir 229E PCR NOT DETECTED 06/17/20 12:15 Nasal Coronavir HKU1 PCR NOT DETECTED 06/17/20 12:15 Nasal Coronavir NL63 PCR NOT DETECTED 06/17/20 12:15 Nasal Coronavir OC43 PCR NOT DETECTED 06/17/20 12:15 Nasal Enterovir/Rhinovir PCR NOT DETECTED 06/17/20 12:15 Nasal Influenza B PCR NOT DETECTED 06/17/20 12:15 Nasal Influenza A PCR NOT DETECTED 06/17/20 12:15 Nasal Parainfluen 1 PCR NOT DETECTED 06/17/20 12:15 Nasal Parainfluen 2 PCR NOT DETECTED 06/17/20 12:15 Nasal Parainfluen 3 PCR NOT DETECTED 06/17/20 12:15 Nasal Parainfluen 4 PCR NOT DETECTED 06/17/20 12:15 Nasal RSV (PCR) NOT DETECTED 06/17/20 12:15 Nasal B.pertussis DNA PCR NOT DETECTED 06/17/20 12:15 Nasal C.pneumoniae (PCR) NOT DETECTED 06/17/20 12:15 Farooq Human Metapneumo PCR NOT DETECTED 06/17/20 12:15 Nasal M.pneumoniae (PCR) NOT DETECTED 06/17/20 12:15 Nasal SARS-CoV-2 (PCR) DETECTED A 06/17/20 12:15 Sepsis Event Note (H) - Evaluation Current Stage of Sepsis: Ruled out ABX Reporting Has patient been on IV antibiotics over the past 48 hours?: No Current Medications - Current Medications Current Medications: Active Medications Acetaminophen (Tylenol) 1,000 mg PO Q6HR [facility] Last Admin: 06/17/20 12:35 Dose: 1,000 mg Documented by: Aspirin (Ecotrin) 81 mg PO BID [facility] Last Admin: 06/17/20 11:45 Dose: 81 mg Documented by: Bisacodyl (Dulcolax Supp) 10 mg MT Q12H PRN PRN Reason: Constipation Last Admin: 06/14/20 22:23 Dose: 10 mg Documented by: Calcium Citrate () 250 mg PO BID [facility] Last Admin: 06/17/20 11:44 Dose: 250 mg Documented by: Cholecalciferol (Vitamin D3) 50 mcg PO DAILY [facility] Last Admin: 06/17/20 11:44 Dose: 50 mcg Documented by: Cyanocobalamin (Vitamin B-12) 500 mcg PO DAILY [facility] Last Admin: 06/17/20 11:44 Dose: 500 mcg Documented by: Docusate Sodium (Colace 250mg Capsule) 250 - 500 mg PO DAILY [facility] Last Admin: 06/17/20 11:46 Dose: Not Given Documented by: Hydromorphone HCl (Dilaudid Inj Syringe) 0.2 mg IVP Q2H PRN PRN Reason: Pain 8 to 10 Sodium Chloride (Normal Saline 0.9%) 1,000 mls @ 85 mls/hr IV .[id number] [facility] Last Admin: 06/17/20 11:23 Dose: 85 mls/hr Documented by: Lisinopril (Zestril) 20 mg PO BID [facility] Last Admin: 06/17/20 11:43 Dose: 20 mg Documented by: Memantine (Namenda) 10 mg PO BID [facility] Last Admin: 06/17/20 11:44 Dose: 10 mg Documented by: Metoprolol Tartrate (Lopressor) 25 mg PO BID [facility] Last Admin: 06/17/20 11:44 Dose: 25 mg Documented by: Ondansetron HCl (Zofran Inj) 4 mg IVP Q6HR PRN PRN Reason: Nausea / Vomiting Oxycodone HCl (Roxicodone) 2.5 mg PO Q4HR PRN PRN Reason: PAIN 5-7 Pantoprazole Sodium (Protonix) 40 mg PO QDAC [facility] Last Admin: 06/17/20 06:16 Dose: 40 mg Documented by: Polyethylene Glycol (Miralax) 17 gm PO DAILY [facility] Last Admin: 06/17/20 11:47 Dose: Not Given Documented by: Quetiapine Fumarate (Seroquel) 25 mg PO DAILY [facility] Last Admin: 06/17/20 11:45 Dose: 25 mg Documented by: Quetiapine Fumarate (Seroquel) 50 mg PO QPM [facility] Last Admin: 06/16/20 20:46 Dose: 50 mg Documented by: Raheem (Carlosokot) 8.6 - 17.2 mg PO BID [facility] Last Admin: 06/17/20 11:44 Dose: 17.2 mg Documented by: Sodium Chloride (Normal Saline Flush 0.9%) 10 ml IVP PRN PRN PRN Reason: NEEDED PER PROVIDER ORDERS Last Admin: 06/15/20 05:24 Dose: 10 ml Documented by: Sodium Chloride (Normal Saline Flush 0.9%) 10 ml IVP 0100,0900,1700 [facility] Last Admin: 06/17/20 11:47 Dose: Not Given Documented by: Tamsulosin HCl (Flomax) 0.4 mg PO DAILY [facility] Last Admin: 06/17/20 11:47 Dose: 0.4 mg Documented by: Memantine HCl [Namenda] 10 mg PO BID 01/24/18 lisinopriL [Lisinopril] 20 mg PO BID 01/24/18 QUEtiapine [SEROquel] 25 mg PO DAILY 05/19/19 Acetaminophen [Tylenol] 325 mg PO PRN PRN 06/12/20 QUEtiapine [SEROquel] 50 mg PO QPM 06/12/20
[2020-06-17] MEDS ORDERED: POTASSIUM CHLORIDE 20 MEQ TABLET PO ONE (16:26)
[2020-06-18] MEDS: ACETAMINOPHEN 500 MG TABLET PO SCH ×2 (00:45→07:39)
[2020-06-18] MEDS: SODIUM CHLORIDE FLUSH 0.9% 10 ML SYRINGE IVP SCH ×3 (02:02→16:56)
[2020-06-18 05:21] LABS: BASOPHILS % (AUTO) 0.2 %; EOSINOPHILS # (AUTO) 0.2 10^3/uL (0.0-0.7); EOSINOPHILS % (AUTO) 3.1 %; HGB - HEMOGLOBIN 8.9 g/dL (12.0-16.0); LYMPHOCYTES # (AUTO) 0.8 10^3/uL (1.5-3.5); LYMPHOCYTES % (AUTO) 16.5 %; MEAN CORPUSCULAR HEMOGLOBIN 31.7 pg (27.0-31.0); MEAN CORPUSCULAR HGB CONC 33.3 g/dL (32.0-36.0); MONOCYTES # (AUTO) 0.4 10^3/uL (0.0-1.0); MONOCYTES % (AUTO) 7.5 %; NEUTROPHILS # (AUTO) 3.4 10^3/uL (1.5-6.6); NEUTROPHILS % (AUTO) 71.9 %; PLT - PLATELET COUNT 218 10^3/uL (130-450); RED BLOOD COUNT 2.81 10^6/uL (4.20-5.40); RED CELL DISTRIBUTION WIDTH 14.8 % (12.0-15.0); WHITE BLOOD COUNT 4.8 x10^3/uL (4.8-10.8)
[2020-06-18 05:24] LABS: CALCIUM 7.9 mg/dL (8.5-10.3); CREATININE 0.9 mg/dL (0.4-1.0)
[2020-06-18] MEDS: PANTOPRAZOLE 40 MG TABLET PO SCH (06:21)
[2020-06-18] MEDS ORDERED: POTASSIUM CHLORIDE 20 MEQ TABLET PO ONE ×2 (07:21→07:53)
[2020-06-18] MEDS: polyethylene glycoL 3350 17 GM PACKET PO SCH (10:30)
[2020-06-18] MEDS: MEMANTINE 5 MG TABLET PO SCH ×2 (10:31→22:21)
[2020-06-18] MEDS: SENNA 8.6 MG TABLET PO SCH ×2 (10:31→22:21)
[2020-06-18] MEDS: CYANOCOBALAMIN 500 MCG TABLET PO SCH (10:31)
[2020-06-18] MEDS: CALCIUM CITRATE 250 MG TABLET PO SCH ×2 (10:31→22:27)
[2020-06-18] MEDS: QUEtiapine 25 MG TABLET PO SCH ×2 (10:32→22:17)
[2020-06-18] MEDS: CHOLECALCIFEROL 25 MCG TABLET PO SCH (10:32)
[2020-06-18] MEDS: DOCUSATE SODIUM 250 MG CAPSULE PO SCH (10:32)
[2020-06-18] MEDS: METOPROLOL TARTRATE 25 MG TABLET PO SCH ×2 (10:32→22:16)
[2020-06-18] MEDS: ASPIRIN EC 81 MG TABLET PO SCH ×2 (10:32→22:21)
[2020-06-18] MEDS: lisinopriL 20 MG TABLET PO SCH ×2 (10:32→22:16)
[2020-06-18] MEDS: TAMSULOSIN 0.4 MG CAPSULE PO SCH (10:33)
[2020-06-18] MEDS: SODIUM CHLORIDE 0.9% 1,000 ML IV SCH ×2 (10:33→22:28)
--- NOTE | 2020-06-18 11:02 | PROVIDER PROGRESS NOTE ---
Assessment/Plan - Problem List (1) COVID-19 virus detected Assessment/Plan: 06/18 Patient is still asymptomatic, no cough or SOB. O2 sats is 95% in room air. 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 We will continue closely monitor patient, continue feeding patient, continue supportive patient, continue appropriate hydration to patient. Covid 19 continue is still positive in the test. Patient had 3 time positive test. pt has no fever on today, her sat is 98% at 2 liter of O2. clinic pt did not show respiratory distress and cough on today. CXR reveal on yesterday evening patchy right lower lung field airspace opacities. We will continue supplement of oxygen as needed, we already updated pt's medical conditions to pt's DPOA, will continue communicate with pt's family. pt has hx of advanced dementia. (2) Staphylococcus epidermidis bacteremia Impression: it was likely contaminated blood culture. nocturnal provider already hold antibiotics. pt's spotted fever is likely from pt's COvid 19 infection. (3) Closed left femoral fracture Impression: 06/18 Today we will have physical therapist and occupational therapist for patient, continue pain control, continue DVT prophylaxis. Today is postop day #5 for a postoperative left hip repair. continue pain control, DVT prophylaxis, pt's [place] was already discontinued. Because pt's O2 sat was drop on the morning, PT is hold on today, but will Continue to work with physical therapy to see if we can get her to [facility]hab or back to memory care unit at assisted living facility. (4)delirium 06/18, slight improved today, she is comfortablly sleeping at the bed. Patient has baseline confusion and disorientation. suspect it might be caused by she has postoperative anesthesia effect superimposed on her dementia, and Covid 19 infection. She is on Seroquel and memantine since yesterday. Avoiding the use of benzodiazepines at this time. continue neur check (5) Atrial flutter, paroxysmal Conclusion/Plan: Rate is controlled. She is actually been sinus. continue metoprolol. (6) Hypertension Conclusion/Plan: stable, continue home meds (7) Dementia Conclusion/Plan: stable as her baseline. pt has Delirium present in the postoperative setting. Avoiding benzodiazepines. (8) hypokalemia Potassium was 3.3, replacement, and lab monitor (9) acute blood loss anemia due to surgery 06/18, Patient is found to have significant iron deficiency, we will start give patient iron. Continue laboratory director Admission hemoglobin was 12.7. She was 10.5 on postop day 1 and 2. On postop day 4 she was 9. will continue lab monitor now. (2) Closed left femoral fracture Qualifiers: Qualified Code(s): S72.092A - Other fracture of head and neck of left femur, initial encounter for closed fracture - Current Meds Current Meds: Current Medications Generic Name Dose Route Start Last Admin Trade Name Freq PRN Reason Stop Dose Admin Aspirin 81 mg 06/12/20 21:00 06/18/20 10:32 Ecotrin PO 81 mg BID MOOSE Administration Bisacodyl 10 mg 06/12/20 15:39 06/14/20 22:23 Dulcolax Supp CA 10 mg Q12H PRN Administration Constipation Calcium Citrate 250 mg 06/13/20 14:00 06/18/20 10:31 PO 250 mg BID MOOSE Administration Cholecalciferol 50 mcg 06/13/20 17:00 06/18/20 10:32 Vitamin D3 PO 50 mcg DAILY MOOSE Administration Cyanocobalamin 500 mcg 06/13/20 17:00 06/18/20 10:31 Vitamin B-12 PO 500 mcg DAILY MOOSE Administration Docusate Sodium 250 - 500 mg 06/13/20 09:00 06/18/20 10:32 Colace 250mg Capsule PO Not Given DAILY MOOSE Sodium Chloride 1,000 mls @ 85 mls/hr 06/15/20 09:00 06/18/20 10:33 Normal Saline 0.9% IV 85 mls/hr .[id number] MOOSE Administration Lisinopril 20 mg 06/13/20 11:00 06/18/20 10:32 Zestril PO 20 mg BID MOOSE Administration Memantine 10 mg 06/13/20 21:00 06/18/20 10:31 Namenda PO 10 mg BID MOOSE Administration Metoprolol Tartrate 25 mg 06/11/20 22:00 06/18/20 10:32 Lopressor PO 25 mg BID MOOSE Administration Pantoprazole Sodium 40 mg 06/12/20 07:00 06/18/20 06:21 Protonix PO 40 mg QDAC MOOSE Administration Polyethylene Glycol 17 gm 06/13/20 09:00 06/18/20 10:30 Miralax PO 17 gm DAILY MOOSE Administration Quetiapine Fumarate 25 mg 06/14/20 09:00 06/18/20 10:32 Seroquel PO 25 mg DAILY MOOSE Administration Quetiapine Fumarate 50 mg 06/14/20 21:00 06/17/20 22:13 Seroquel PO 50 mg QPM MOOSE Administration Senna 8.6 - 17.2 mg 06/14/20 17:51 06/18/20 10:31 Senokot PO 8.6 mg BID MOOSE Administration Sodium Chloride 10 ml 06/11/20 21:23 06/15/20 05:24 Normal Saline Flush 0.9% IVP 10 ml PRN PRN Administration NEEDED PER PROVIDER ORDERS Sodium Chloride 10 ml 06/12/20 17:00 06/18/20 10:33 Normal Saline Flush 0.9% IVP 10 ml 0100,0900,1700 MOOSE Administration Tamsulosin HCl 0.4 mg 06/14/20 12:00 06/18/20 10:33 Flomax PO 0.4 mg DAILY MOOSE Administration - Lab Result Fish Bone Diagrams: 06/18/20 05:05 06/18/20 05:05 - Additional Planning My Orders: My Active Orders 06/17/20 14:29 Neuro Check [RC] QSHIFT 06/17/20 Dinner Dysphagia Puree Diet [DIET] 06/18/20 07:45 Acetaminophen [Tylenol] 650 mg PO Q4HR PRN 06/18/20 11:00 FERRITIN [IAI] Routine IRON TIBC PANEL [CHEM] Routine LDH - LACTATE DEHYDROGENASE [CHEM] Routine RETIC [HEME] Routine VITAMIN B12 [IAI] Routine 06/19/20 05:00 BMP - BASIC METABOLIC PANEL [CHEM] DAILYLAB CBC - COMP BLD CT W/AUTO DIFF [HEME] DAILYLAB 06/20/20 05:00 BMP - BASIC METABOLIC PANEL [CHEM] DAILYLAB CBC - COMP BLD CT W/AUTO DIFF [HEME] DAILYLAB 06/21/20 05:00 BMP - BASIC METABOLIC PANEL [CHEM] DAILYLAB CBC - COMP BLD CT W/AUTO DIFF [HEME] DAILYLAB 06/22/20 05:00 BMP - BASIC METABOLIC PANEL [CHEM] DAILYLAB CBC - COMP BLD CT W/AUTO DIFF [HEME] DAILYLAB Subjective - Subjective Nursing Reports: Confused Objective Vital Signs: Vital Signs - 24 hr 06/17/20 06/17/20 06/17/20 11:44 12:33 17:15 Temperature 37.0 C 37.8 C H Heart Rate [ 66 68 Brachial] Respiratory 18 18 Rate Blood Pressure 133/74 H Blood Pressure 133/74 H 150/85 H [Left Brachial artery] Blood Pressure [Right Brachial artery] O2 Saturation 98 94 06/17/20 06/18/20 06/18/20 22:18 01:58 03:38 Temperature 37.7 C H 37.2 C Heart Rate [ 76 Brachial] Respiratory 18 Rate Blood Pressure 174/84 H Blood Pressure [Left Brachial artery] Blood Pressure 157/81 H [Right Brachial artery] O2 Saturation 93 06/18/20 10:30 Temperature 36.8 C Heart Rate [ 71 Brachial] Respiratory 18 Rate Blood Pressure Blood Pressure [Left Brachial artery] Blood Pressure 146/77 H [Right Brachial artery] O2 Saturation 94 Oxygen O2 Source Room air I&O (Last 24 Hrs): Intake and Output Totals x24h 06/16/20 06/17/20 06/18/20 23:59 23:59 23:59 Intake Total 2347.917 3799.167 1059.084 Output Total 1300 2325 725 Balance 4384.188 6123.167 334.084 General: Alert, No acute distress HEENT: Atraumatic Neck: Supple Lymphatic: no adenopathy Neuro: Alert, Non Focal Cardiovascular: Regular rate, Normal S1, Normal S2 Respiratory: Chest non-tender, No respiratory distress Abdomen: Normal bowel sounds, Soft Extremities: Normal pulses - Results Results: Laboratory Results WBC 4.8 x10^3/uL (4.8-10.8) 06/18/20 05:05 RBC 2.81 10^6/uL (4.20-5.40) L 06/18/20 05:05 Hgb 8.9 g/dL (12.0-16.0) L 06/18/20 05:05 Hct 26.7 % (37.0-47.0) L 06/18/20 05:05 MCV 95.0 fL (81.0-99.0) 06/18/20 05:05 MCH 31.7 pg (27.0-31.0) H 06/18/20 05:05 MCHC 33.3 g/dL (32.0-36.0) 06/18/20 05:05 RDW 14.8 % (12.0-15.0) 06/18/20 05:05 Plt Count 218 10^3/uL (130-450) 06/18/20 05:05 MPV 11.0 fL (7.9-10.8) H 06/18/20 05:05 Neut # (Auto) 3.4 10^3/uL (1.5-6.6) 06/18/20 05:05 Lymph # (Auto) 0.8 10^3/uL (1.5-3.5) L 06/18/20 05:05 Mckean # (Auto) 0.4 10^3/uL (0.0-1.0) 06/18/20 05:05 Eos # (Auto) 0.2 10^3/uL (0.0-0.7) 06/18/20 05:05 Baso # (Auto) 0.0 10^3/uL (0.0-0.1) 06/18/20 05:05 Absolute Nucleated RBC 0.00 x10^3/uL 06/18/20 05:05 Nucleated RBC % 0.0 /100WBC 06/18/20 05:05 PT 13.0 secs (9.9-12.6) H 06/11/20 19:45 INR 1.2 (0.8-1.2) 06/11/20 19:45 Sodium 137 mmol/L (135-145) 06/18/20 05:05 Potassium 3.4 mmol/L (3.5-5.0) L 06/18/20 05:05 Chloride 107 mmol/L (101-111) 06/18/20 05:05 Carbon Dioxide 22 mmol/L (21-32) 06/18/20 05:05 Anion Gap 8.0 (6-13) 06/18/20 05:05 BUN 13 mg/dL (6-20) 06/18/20 05:05 Creatinine 0.9 mg/dL (0.4-1.0) 06/18/20 05:05 Estimated GFR (MDRD) 60 (>89) L 06/18/20 05:05 Glucose 94 mg/dL (70-100) 06/18/20 05:05 Lactic Acid 1.4 mmol/L (0.5-2.2) 06/11/20 23:30 Calcium 7.9 mg/dL (8.5-10.3) L 06/18/20 05:05 Phosphorus 3.1 mg/dL (2.5-4.6) 06/15/20 06:50 Magnesium 1.9 mg/dL (1.7-2.8) 06/15/20 06:50 Total Bilirubin 0.7 mg/dL (0.2-1.0) 06/11/20 19:45 AST 29 IU/L (10-42) 06/11/20 19:45 ALT 19 IU/L (10-60) 06/11/20 19:45 Alkaline Phosphatase 68 IU/L (42-121) 06/11/20 19:45 Troponin I High Sens 10.5 ng/L (2.3-14.8) 06/11/20 19:45 Total Protein 7.8 g/dL (6.7-8.2) 06/11/20 19:45 Albumin 4.2 g/dL (3.2-5.5) 06/11/20 19:45 Globulin 3.6 g/dL (2.1-4.2) 06/11/20 19:45 Albumin/Globulin Ratio 1.2 (1.0-2.2) 06/11/20 19:45 Vitamin B12 140 pg/mL (180-914) L 06/13/20 05:53 TSH 2.31 uIU/mL (0.34-5.60) 06/12/20 05:20 Urine Color YELLOW 06/11/20 20:10 Urine Clarity CLEAR (CLEAR) 06/11/20 20:10 Urine pH 6.5 PH (5.0-7.5) 06/11/20 20:10 Ur Specific [place] 1.025 (1.002-1.030) 06/11/20 20:10 Urine Protein NEGATIVE mg/dL (NEGATIVE) 06/11/20 20:10 Urine Glucose (UA) NEGATIVE mg/dL (NEGATIVE) 06/11/20 20:10 Urine Ketones 15 mg/dL (NEGATIVE) H 06/11/20 20:10 Urine Occult Blood TRACE-INTA (NEGATIVE) 06/11/20 20:10 Urine Nitrite NEGATIVE (NEGATIVE) 06/11/20 20:10 Urine Bilirubin NEGATIVE (NEGATIVE) 06/11/20 20:10 Urine Urobilinogen 0.2 (NORMAL) E.U./dL (NORMAL) 06/11/20 20:10 Ur Leukocyte Esterase NEGATIVE (NEGATIVE) 06/11/20 20:10 Urine RBC 0-5 /HPF (0-5) 06/11/20 20:10 Urine WBC 0-3 /HPF (0-5) 06/11/20 20:10 Ur Squamous Epith Cells RARE Squamous (<= Few) 06/11/20 20:10 Urine Bacteria None Seen /HPF (None Seen) 06/11/20 20:10 Urine Culture Comments NOT INDICATED 06/11/20 20:10 Nasal Adenovirus (PCR) NOT DETECTED 06/17/20 12:15 Nasal B. parapertussis DNA (PCR) NOT DETECTED 06/17/20 12:15 Nasal Coronavir 229E PCR NOT DETECTED 06/17/20 12:15 Nasal Coronavir HKU1 PCR NOT DETECTED 06/17/20 12:15 Nasal Coronavir NL63 PCR NOT DETECTED 06/17/20 12:15 Nasal Coronavir OC43 PCR NOT DETECTED 06/17/20 12:15 Nasal Enterovir/Rhinovir PCR NOT DETECTED 06/17/20 12:15 Nasal Influenza B PCR NOT DETECTED 06/17/20 12:15 Nasal Influenza A PCR NOT DETECTED 06/17/20 12:15 Nasal Parainfluen 1 PCR NOT DETECTED 06/17/20 12:15 Nasal Parainfluen 2 PCR NOT DETECTED 06/17/20 12:15 Nasal Parainfluen 3 PCR NOT DETECTED 06/17/20 12:15 Nasal Parainfluen 4 PCR NOT DETECTED 06/17/20 12:15 Nasal RSV (PCR) NOT DETECTED 06/17/20 12:15 Nasal B.pertussis DNA PCR NOT DETECTED 06/17/20 12:15 Nasal C.pneumoniae (PCR) NOT DETECTED 06/17/20 12:15 Farooq Human Metapneumo PCR NOT DETECTED 06/17/20 12:15 Nasal M.pneumoniae (PCR) NOT DETECTED 06/17/20 12:15 Nasal SARS-CoV-2 (PCR) DETECTED A 06/17/20 12:15 Sepsis Event Note (H) - Evaluation Current Stage of Sepsis: Ruled out ABX Reporting Has patient been on IV antibiotics over the past 48 hours?: No Current Medications - Current Medications Current Medications: Active Medications Acetaminophen (Tylenol) 650 mg PO Q4HR PRN PRN Reason: Pain or Fever > 38C (100.4F) Aspirin (Ecotrin) 81 mg PO BID [facility] Last Admin: 06/18/20 10:32 Dose: 81 mg Documented by: Bisacodyl (Dulcolax Supp) 10 mg CA Q12H PRN PRN Reason: Constipation Last Admin: 06/14/20 22:23 Dose: 10 mg Documented by: Calcium Citrate () 250 mg PO BID [facility] Last Admin: 06/18/20 10:31 Dose: 250 mg Documented by: Cholecalciferol (Vitamin D3) 50 mcg PO DAILY [facility] Last Admin: 06/18/20 10:32 Dose: 50 mcg Documented by: Cyanocobalamin (Vitamin B-12) 500 mcg PO DAILY [facility] Last Admin: 06/18/20 10:31 Dose: 500 mcg Documented by: Docusate Sodium (Colace 250mg Capsule) 250 - 500 mg PO DAILY [facility] Last Admin: 06/18/20 10:32 Dose: Not Given Documented by: Ferrous Sulfate (Feosol) 325 mg PO BIDWM [facility] Hydromorphone HCl (Dilaudid Inj Syringe) 0.2 mg IVP Q2H PRN PRN Reason: Pain 8 to 10 Sodium Chloride (Normal Saline 0.9%) 1,000 mls @ 85 mls/hr IV .[id number] [facility] Last Admin: 06/18/20 10:33 Dose: 85 mls/hr Documented by: Lisinopril (Zestril) 20 mg PO BID [facility] Last Admin: 06/18/20 10:32 Dose: 20 mg Documented by: Memantine (Namenda) 10 mg PO BID [facility] Last Admin: 06/18/20 10:31 Dose: 10 mg Documented by: Metoprolol Tartrate (Lopressor) 25 mg PO BID [facility] Last Admin: 06/18/20 10:32 Dose: 25 mg Documented by: Ondansetron HCl (Zofran Inj) 4 mg IVP Q6HR PRN PRN Reason: Nausea / Vomiting Oxycodone HCl (Roxicodone) 2.5 mg PO Q4HR PRN PRN Reason: PAIN 5-7 Pantoprazole Sodium (Protonix) 40 mg PO QDAC [facility] Last Admin: 06/18/20 06:21 Dose: 40 mg Documented by: Polyethylene Glycol (Miralax) 17 gm PO DAILY [facility] Last Admin: 06/18/20 10:30 Dose: 17 gm Documented by: Quetiapine Fumarate (Seroquel) 25 mg PO DAILY [facility] Last Admin: 06/18/20 10:32 Dose: 25 mg Documented by: Quetiapine Fumarate (Seroquel) 50 mg PO QPM [facility] Last Admin: 06/17/20 22:13 Dose: 50 mg Documented by: Raheem (Senokot) 8.6 - 17.2 mg PO BID [facility] Last Admin: 06/18/20 10:31 Dose: 8.6 mg Documented by: Sodium Chloride (Normal Saline Flush 0.9%) 10 ml IVP PRN PRN PRN Reason: NEEDED PER PROVIDER ORDERS Last Admin: 06/15/20 05:24 Dose: 10 ml Documented by: Sodium Chloride (Normal Saline Flush 0.9%) 10 ml IVP 0100,0900,1700 [facility] Last Admin: 06/18/20 10:33 Dose: 10 ml Documented by: Tamsulosin HCl (Flomax) 0.4 mg PO DAILY [facility] Last Admin: 06/18/20 10:33 Dose: 0.4 mg Documented by: Memantine HCl [Namenda] 10 mg PO BID 01/24/18 lisinopriL [Lisinopril] 20 mg PO BID 01/24/18 QUEtiapine [SEROquel] 25 mg PO DAILY 05/19/19 Acetaminophen [Tylenol] 325 mg PO PRN PRN 06/12/20 QUEtiapine [SEROquel] 50 mg PO QPM 06/12/20
[2020-06-18 11:08] LABS: ABSOLUTE RETICS # AUTO 0.024 10^6/uL (0.020-0.110); RED BLOOD COUNT 2.72 10^6/uL (4.20-5.40)
[2020-06-18 11:44] LABS: FERRITIN 146.1 ng/mL (11.0-306.8)
[2020-06-18 12:02] LABS: IRON < 6 ug/dL (28-170); TOTAL IRON BINDING CAPACITY 221 ug/dL (250-450); TRANSFERRIN 158 mg/dL (192-382)
[2020-06-18] MEDS: ACETAMINOPHEN 325 MG TABLET PO PRN (16:51)
[2020-06-18] MEDS: FERROUS SULFATE 325 MG TABLET PO SCH (16:51)
[2020-06-18 16:56] LABS: BILIRUBIN,URINE NEGATIVE (NEGATIVE); GLUCOSE, URINE (UA) NEGATIVE (NEGATIVE); KETONES,URINE (UA) NEGATIVE (NEGATIVE); LEUKOCYTE ESTERASE, URINE NEGATIVE (NEGATIVE); NITRITE,URINE NEGATIVE (NEGATIVE); OCCULT BLOOD,URINE NEGATIVE (NEGATIVE); PROTEIN,URINE NEGATIVE (NEGATIVE); UROBILINOGEN,URINE 0.2 (NORMAL) E.U./dL (NORMAL)
[2020-06-18 17:00] LABS: CLARITY,URINE CLEAR (CLEAR)
[2020-06-18 17:10] LABS: BACTERIA,URINE None Seen /HPF (None Seen); RBC,URINE None Seen /HPF (0-5); SQUAMOUS EPITHELIAL CELL,UR NONE SEEN (<= Few)
--- NOTE | 2020-06-18 21:53 | XRAY Report ---
PROCEDURE: Chest 1 View X-Ray INDICATIONS: SOB TECHNIQUE: One view of the chest was acquired. COMPARISON: 06/16/2020 FINDINGS: Surgical changes and devices: None. Lungs and pleura: Persistent diffuse interstitial prominence patchy bibasilar opacities. Findings ar e most pronounced in the right lung base. No pleural effusions or pneumothorax. Mediastinum: Mediastinal contours appear normal. Heart size is normal. Bones and chest wall: No suspicious bony lesions. Overlying soft tissues appear unremarkable. IMPRESSION: Stable radiographic evaluation of the chest with persistent interstitial prominence and patchy right greater than left bibasilar opacities. No new focal airspace disease. Findings are compatible with re ported history of COVID. Reviewed by: Kyle Bull MD on 06/18/2020 9:51 PM [facility] Approved by: Kyle Bull MD on 06/18/2020 9:51 PM [facility] Station ID: [id number]
[2020-06-18] MEDS: CEFEPIME 1 GM in SODIUM CHLORIDE 0.9% MINIBAG 100 ML IV SCH (22:30)
[2020-06-19] MEDS: CEFEPIME 1 GM in SODIUM CHLORIDE 0.9% MINIBAG 100 ML IV SCH (06:07)
[2020-06-19] MEDS: PANTOPRAZOLE 40 MG TABLET PO SCH (06:07)
[2020-06-19 06:10] LABS: BASOPHILS % (AUTO) 0.2 %; EOSINOPHILS # (AUTO) 0.1 10^3/uL (0.0-0.7); EOSINOPHILS % (AUTO) 1.3 %; HGB - HEMOGLOBIN 8.9 g/dL (12.0-16.0); LYMPHOCYTES # (AUTO) 1.2 10^3/uL (1.5-3.5); LYMPHOCYTES % (AUTO) 21.4 %; MEAN CORPUSCULAR HEMOGLOBIN 32.6 pg (27.0-31.0); MEAN CORPUSCULAR HGB CONC 34.8 g/dL (32.0-36.0); MEAN CORPUSCULAR VOLUME 93.8 fL (81.0-99.0); MEAN PLATELET VOLUME 10.4 fL (7.9-10.8); MONOCYTES # (AUTO) 0.6 10^3/uL (0.0-1.0); MONOCYTES % (AUTO) 10.1 %; NEUTROPHILS # (AUTO) 3.6 10^3/uL (1.5-6.6); NEUTROPHILS % (AUTO) 65.3 %; PLT - PLATELET COUNT 254 10^3/uL (130-450); RED BLOOD COUNT 2.73 10^6/uL (4.20-5.40); RED CELL DISTRIBUTION WIDTH 14.9 % (12.0-15.0); WHITE BLOOD COUNT 5.4 x10^3/uL (4.8-10.8)
[2020-06-19 06:20] LABS: CALCIUM 7.6 mg/dL (8.5-10.3); CREATININE 0.9 mg/dL (0.4-1.0)
[2020-06-19] MEDS: SODIUM CHLORIDE FLUSH 0.9% 10 ML SYRINGE IVP SCH ×4 (07:07→23:46)
[2020-06-19] MEDS ORDERED: SACCHAROMYCES BOULARDII 250 MG CAPSULE PO SCH (08:00)
[2020-06-19] MEDS: TAMSULOSIN 0.4 MG CAPSULE PO SCH (08:24)
[2020-06-19] MEDS: MEMANTINE 5 MG TABLET PO SCH ×2 (08:25→22:03)
[2020-06-19] MEDS: CHOLECALCIFEROL 25 MCG TABLET PO SCH (08:26)
[2020-06-19] MEDS: CALCIUM CITRATE 250 MG TABLET PO SCH ×2 (08:26→22:03)
[2020-06-19] MEDS: ASPIRIN EC 81 MG TABLET PO SCH ×2 (08:26→22:03)
[2020-06-19] MEDS: DOCUSATE SODIUM 250 MG CAPSULE PO SCH (08:27)
[2020-06-19] MEDS: FERROUS SULFATE 325 MG TABLET PO SCH ×2 (08:28→17:43)
[2020-06-19] MEDS: POTASSIUM CHLOR 10 MEQ/100 ML 10 MEQ/100 ML BAG IV SCH ×2 (08:30→09:30)
[2020-06-19] MEDS: lisinopriL 20 MG TABLET PO SCH ×2 (08:43→22:04)
[2020-06-19] MEDS: polyethylene glycoL 3350 17 GM PACKET PO SCH (08:43)
[2020-06-19] MEDS: METOPROLOL TARTRATE 25 MG TABLET PO SCH ×2 (08:44→22:03)
[2020-06-19] MEDS ORDERED: POTASSIUM CHLORIDE 20 MEQ TABLET PO ONE (09:00)
[2020-06-19] MEDS: SENNA 8.6 MG TABLET PO SCH ×2 (09:10→19:13)
[2020-06-19] MEDS: QUEtiapine 25 MG TABLET PO SCH (09:30)
[2020-06-19] MEDS ORDERED: QUEtiapine 25 MG TABLET PO SCH (10:00)
--- NOTE | 2020-06-19 11:01 | PROVIDER PROGRESS NOTE ---
Subjective - Prog Note Date Prog Note Date: 06/19/20 - Subjective Pt reports feeling: No change Subjective: pt is still confused, could not answer questions, but no lethargic, and active at the bed. Per Dr. Sun's report, he called pt's DPOA Jf, updated pt's medical conditions specially pt's Covid 19 status, and DPOA confirmed pt's code status is DNR. Current Medications - Current Medications Current Medications: Active Medications Acetaminophen (Tylenol) 650 mg PO Q4HR PRN PRN Reason: Pain or Fever > 38C (100.4F) Last Admin: 06/18/20 16:51 Dose: 650 mg Documented by: Aspirin (Ecotrin) 81 mg PO BID [facility] Last Admin: 06/19/20 08:26 Dose: 81 mg Documented by: Bisacodyl (Dulcolax Supp) 10 mg [place] Q12H PRN PRN Reason: Constipation Last Admin: 06/14/20 22:23 Dose: 10 mg Documented by: Calcium Citrate () 250 mg PO BID [facility] Last Admin: 06/19/20 08:26 Dose: 250 mg Documented by: Cholecalciferol (Vitamin D3) 50 mcg PO DAILY [facility] Last Admin: 06/19/20 08:26 Dose: 50 mcg Documented by: Docusate Sodium (Colace 250mg Capsule) 250 - 500 mg PO DAILY [facility] Last Admin: 06/19/20 08:27 Dose: 250 mg Documented by: Ferrous Sulfate (Feosol) 325 mg PO BIDWM [facility] Last Admin: 06/19/20 08:28 Dose: 325 mg Documented by: Hydromorphone HCl (Dilaudid Inj Syringe) 0.2 mg IVP Q2H PRN PRN Reason: Pain 8 to 10 Sodium Chloride (Normal Saline 0.9%) 1,000 mls @ 85 mls/hr IV .[id number] [facility] Last Infusion: 06/19/20 10:30 Dose: 85 mls/hr Documented by: Lisinopril (Zestril) 20 mg PO BID [facility] Last Admin: 06/19/20 08:43 Dose: 20 mg Documented by: Memantine (Namenda) 10 mg PO BID [facility] Last Admin: 06/19/20 08:25 Dose: 10 mg Documented by: Metoprolol Tartrate (Lopressor) 25 mg PO BID [facility] Last Admin: 06/19/20 08:44 Dose: 25 mg Documented by: Ondansetron HCl (Zofran Inj) 4 mg IVP Q6HR PRN PRN Reason: Nausea / Vomiting Oxycodone HCl (Roxicodone) 2.5 mg PO Q4HR PRN PRN Reason: PAIN 5-7 Pantoprazole Sodium (Protonix) 40 mg PO QDAC [facility] Last Admin: 06/19/20 06:07 Dose: 40 mg Documented by: Polyethylene Glycol (Miralax) 17 gm PO DAILY [facility] Last Admin: 06/19/20 08:43 Dose: 17 gm Documented by: Quetiapine Fumarate (Seroquel) 50 mg PO QPM [facility] Quetiapine Fumarate (Seroquel) 25 mg PO DAILY [facility] Last Admin: 06/19/20 09:30 Dose: 25 mg Documented by: Raheem (Senokot) 8.6 - 17.2 mg PO BID [facility] Last Admin: 06/19/20 09:10 Dose: 8.6 mg Documented by: Sodium Chloride (Normal Saline Flush 0.9%) 10 ml IVP PRN PRN PRN Reason: NEEDED PER PROVIDER ORDERS Last Admin: 06/15/20 05:24 Dose: 10 ml Documented by: Sodium Chloride (Normal Saline Flush 0.9%) 10 ml IVP 0100,0900,1700 [facility] Last Admin: 06/19/20 09:10 Dose: 10 ml Documented by: Tamsulosin HCl (Flomax) 0.4 mg PO DAILY [facility] Last Admin: 06/19/20 08:24 Dose: 0.4 mg Documented by: Memantine HCl [Namenda] 10 mg PO BID 01/24/18 lisinopriL [Lisinopril] 20 mg PO BID 01/24/18 QUEtiapine [SEROquel] 25 mg PO DAILY 05/19/19 Acetaminophen [Tylenol] 325 mg PO PRN PRN 06/12/20 QUEtiapine [SEROquel] 50 mg PO QPM 06/12/20 Objective - Vital Signs/Intake & Output Vital Signs: Vital Signs x48h Temp Pulse Resp BP BP Pulse Ox 06/19/20 08:44 146/72 H 06/19/20 08:30 37.8 C H 87 18 146/72 H 90 L 06/19/20 06:54 36.6 C 82 95 Intake & Output: Intake & Output 06/16/20 06/17/20 06/18/20 06/19/20 23:59 23:59 23:59 23:59 Intake Total 2347.917 3799.167 2491.917 1269.25 Output Total 1300 2325 2075 1500 Balance 7890.092 4211.167 416.917 -230.75 - Objective General Appearance: positive: No acute distress, Alert. negative: Lethargic Eyes Bilateral: positive: Normal inspection, PERRL, No lid inflammation ENT: positive: ENT inspection nml, No signs of dehydration. negative: Purulent nasal drainage Neck: positive: Nml inspection, Thyroid nml, Trachea midline. negative: Thyromegaly, Tracheal deviation Respiratory: positive: Chest non-tender, No respiratory distress, Rhonchi. negative: Breath sounds nml, Wheezes Cardiovascular: positive: Regular rate & rhythm, No murmur. negative: Tachycardia, Bradycardia, Systolic murmur, Diastolic murmur Peripheral Pulses: 2+ Radial (R), 2+ Radial (L) Abdomen: positive: Non-tender, Nml bowel sounds, No distention. negative: Tenderness Back: positive: Nml inspection Skin: positive: Color nml, No rash, Warm, Dry. negative: Cyanosis, Diaphoresis, Pallor Extremities: positive: Non-tender. negative: Pedal edema, Calf tenderness, Joint swelling Neurologic/Psychiatric: positive: Disoriented to person, Disoriented to place, Disoriented to time. negative: Weakness, Sensory loss, Facial droop, Slurred/abnml speech - Lab Results Fish Bones: 06/19/20 06:05 06/19/20 06:05 Other Labs: Lab Results x24hrs 06/19/20 06/19/20 06/18/20 Range/Units 06:05 06:05 10:30 WBC 5.4 (4.8-10.8) x10^3/uL RBC 2.73 L (4.20-5.40) 10^6/uL Hgb 8.9 L (12.0-16.0) g/dL Hct 25.6 L (37.0-47.0) % MCV 93.8 (81.0-99.0) fL MCH 32.6 H (27.0-31.0) pg MCHC 34.8 (32.0-36.0) g/dL RDW 14.9 (12.0-15.0) % Plt Count 254 (130-450) 10^3/uL MPV 10.4 (7.9-10.8) fL Reticulocyte % (Auto) (0.5-2.3) % Neut # (Auto) 3.6 (1.5-6.6) 10^3/uL Lymph # (Auto) 1.2 L (1.5-3.5) 10^3/uL [place] # (Auto) 0.6 (0.0-1.0) 10^3/uL Eos # (Auto) 0.1 (0.0-0.7) 10^3/uL Baso # (Auto) 0.0 (0.0-0.1) 10^3/uL Absolute Nucleated RBC 0.00 x10^3/uL Nucleated RBC % 0.0 /100WBC Absolute Retic (0.020-0.110) 10^6/uL Sodium 134 L (135-145) mmol/L Potassium 3.1 L (3.5-5.0) mmol/L Chloride 105 (101-111) mmol/L Carbon Dioxide 21 (21-32) mmol/L Anion Gap 8.0 (6-13) BUN 14 (6-20) mg/dL Creatinine 0.9 (0.4-1.0) mg/dL Estimated GFR (MDRD) 60 L (>89) Glucose 102 H (70-100) mg/dL Calcium 7.6 L (8.5-10.3) mg/dL Iron (28-170) ug/dL TIBC (250-450) ug/dL Transferrin (192-382) mg/dL Ferritin (11.0-306.8) ng/mL Lactate Dehydrogenase (91-225) IU/L Vitamin B12 (180-914) pg/mL Urine Color YELLOW Urine Clarity CLEAR (CLEAR) Urine pH 7.0 (5.0-7.5) PH Ur Specific Pierce 1.015 (1.002-1.030) Urine Protein NEGATIVE (NEGATIVE) mg/dL Urine Glucose (UA) NEGATIVE (NEGATIVE) mg/dL Urine Ketones NEGATIVE (NEGATIVE) mg/dL Urine Occult Blood NEGATIVE (NEGATIVE) Urine Nitrite NEGATIVE (NEGATIVE) Urine Bilirubin NEGATIVE (NEGATIVE) Urine Urobilinogen 0.2 (NORMAL) (NORMAL) E.U./dL Ur Leukocyte Esterase NEGATIVE (NEGATIVE) Urine RBC None Seen (0-5) /HPF Urine WBC 0-3 (0-5) /HPF Ur Squamous Epith Cells NONE SEEN (<= Few) Urine Bacteria None Seen (None Seen) /HPF Urine Culture Comments NOT INDICATED 06/18/20 06/18/20 06/18/20 Range/Units 05:05 05:05 05:05 WBC (4.8-10.8) x10^3/uL RBC (4.20-5.40) 10^6/uL Hgb (12.0-16.0) g/dL Hct (37.0-47.0) % MCV (81.0-99.0) fL MCH (27.0-31.0) pg MCHC (32.0-36.0) g/dL RDW (12.0-15.0) % Plt Count (130-450) 10^3/uL MPV (7.9-10.8) fL Reticulocyte % (Auto) (0.5-2.3) % Neut # (Auto) (1.5-6.6) 10^3/uL Lymph # (Auto) (1.5-3.5) 10^3/uL [place] # (Auto) (0.0-1.0) 10^3/uL Eos # (Auto) (0.0-0.7) 10^3/uL Baso # (Auto) (0.0-0.1) 10^3/uL Absolute Nucleated RBC x10^3/uL Nucleated RBC % /100WBC Absolute Retic (0.020-0.110) 10^6/uL Sodium (135-145) mmol/L Potassium (3.5-5.0) mmol/L Chloride (101-111) mmol/L Carbon Dioxide (21-32) mmol/L Anion Gap (6-13) BUN (6-20) mg/dL Creatinine (0.4-1.0) mg/dL Estimated GFR (MDRD) (>89) Glucose (70-100) mg/dL Calcium (8.5-10.3) mg/dL Iron < 6 L (28-170) ug/dL TIBC 221 L (250-450) ug/dL Transferrin 158 L (192-382) mg/dL Ferritin 146.1 (11.0-306.8) ng/mL Lactate Dehydrogenase 191 (91-225) IU/L Vitamin B12 2956 H (180-914) pg/mL Urine Color Urine Clarity (CLEAR) Urine pH (5.0-7.5) PH Ur Specific Pierce (1.002-1.030) Urine Protein (NEGATIVE) mg/dL Urine Glucose (UA) (NEGATIVE) mg/dL Urine Ketones (NEGATIVE) mg/dL Urine Occult Blood (NEGATIVE) Urine Nitrite (NEGATIVE) Urine Bilirubin (NEGATIVE) Urine Urobilinogen (NORMAL) E.U./dL Ur Leukocyte Esterase (NEGATIVE) Urine RBC (0-5) /HPF Urine WBC (0-5) /HPF Ur Squamous Epith Cells (<= Few) Urine Bacteria (None Seen) /HPF Urine Culture Comments 06/18/20 Range/Units 05:05 WBC (4.8-10.8) x10^3/uL RBC 2.72 L (4.20-5.40) 10^6/uL Hgb (12.0-16.0) g/dL Hct (37.0-47.0) % MCV (81.0-99.0) fL MCH (27.0-31.0) pg MCHC (32.0-36.0) g/dL RDW (12.0-15.0) % Plt Count (130-450) 10^3/uL MPV (7.9-10.8) fL Reticulocyte % (Auto) 0.89 (0.5-2.3) % Neut # (Auto) (1.5-6.6) 10^3/uL Lymph # (Auto) (1.5-3.5) 10^3/uL [place] # (Auto) (0.0-1.0) 10^3/uL Eos # (Auto) (0.0-0.7) 10^3/uL Baso # (Auto) (0.0-0.1) 10^3/uL Absolute Nucleated RBC x10^3/uL Nucleated RBC % /100WBC Absolute Retic 0.024 (0.020-0.110) 10^6/uL Sodium (135-145) mmol/L Potassium (3.5-5.0) mmol/L Chloride (101-111) mmol/L Carbon Dioxide (21-32) mmol/L Anion Gap (6-13) BUN (6-20) mg/dL Creatinine (0.4-1.0) mg/dL Estimated GFR (MDRD) (>89) Glucose (70-100) mg/dL Calcium (8.5-10.3) mg/dL Iron (28-170) ug/dL TIBC (250-450) ug/dL Transferrin (192-382) mg/dL Ferritin (11.0-306.8) ng/mL Lactate Dehydrogenase (91-225) IU/L Vitamin B12 (180-914) pg/mL Urine Color Urine Clarity (CLEAR) Urine pH (5.0-7.5) PH Ur Specific Pierce (1.002-1.030) Urine Protein (NEGATIVE) mg/dL Urine Glucose (UA) (NEGATIVE) mg/dL Urine Ketones (NEGATIVE) mg/dL Urine Occult Blood (NEGATIVE) Urine Nitrite (NEGATIVE) Urine Bilirubin (NEGATIVE) Urine Urobilinogen (NORMAL) E.U./dL Ur Leukocyte Esterase (NEGATIVE) Urine RBC (0-5) /HPF Urine WBC (0-5) /HPF Ur Squamous Epith Cells (<= Few) Urine Bacteria (None Seen) /HPF Urine Culture Comments ABX Reporting Has patient been on IV antibiotics over the past 48 hours?: No Assessment/Plan - Problem List (1) Acute hypoxemic respiratory failure due to COVID-19 Impression: 06/19, Patient's O2 saturation is dropped to 90% on room air, likely relative to pt's COvid 19. CXR reveals Covid 19 pattern but stable comparing with 06/16 CXR, right lobes has more patch than left. Will give NC of O2 supplement to pt. But pt is confused and frequently took NC off by herself. continue appropriately IVF, continue feeding pt, continue vital and lab monitor pt, continue support pt. (2)fever 06/19, pt had fever 38.4 degree and continue to have elevated temperature. it is likely relative to Covid 19 infection. continue Tylenol PRN, continue vital monitor, continue supplement of O2, continue feeding and support to pt. (1) COVID-19 virus detected 06-19 pt continue to be positive Covid 19, update pt's medical conditions to pt's family and DPOA, continue support to pt. (2) Staphylococcus epidermidis bacteremia Impression: it was likely contaminated blood culture. nocturnal provider already hold antibiotics. pt's spotted fever is likely from pt's COvid 19 infection. (3) Closed left femoral fracture Impression: 06-19, continue pain control, continue consult with PT/OT 06/18 Today we will have physical therapist and occupational therapist for patient, continue pain control, continue DVT prophylaxis. Today is postop day #5 for a postoperative left hip repair. continue pain control, DVT prophylaxis, pt's [place] was already discontinued. Because pt's O2 sat was drop on the morning, PT is hold on today, but will Continue to work with physical therapy to see if we can [facility] or back to memory care unit at assisted living facility. (4)delirium 06-19, pt is still confused, pt is likely combination of pt's underline advanced dementia, Covid 19 infection, and recently hip repair and pain control 06/18, slight improved today, she is comfortablly sleeping at the bed. Patient has baseline confusion and disorientation. suspect it might be caused by she has postoperative anesthesia effect superimposed on her dementia, and Covid 19 infection. She is on Seroquel and memantine since yesterday. Avoiding the use of benzodiazepines at this time. continue neur check (5) Atrial flutter, paroxysmal Conclusion/Plan: Rate is controlled. She is actually been sinus. continue metoprolol. (6) Hypertension Conclusion/Plan: stable, continue home meds (7) Dementia Conclusion/Plan: stable as her baseline. pt has Delirium present in the postoperative setting. Avoiding benzodiazepines. (8) hypokalemia Potassium was 3.3, replacement, and lab monitor (9) acute blood loss anemia due to surgery 06/19 stable, continue iron supplement. 06/18, Patient is found to have significant iron deficiency, we will start give patient iron. 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 She was 10.5 on postop day 1 and 2. On postop day 4 she was 9. will continue lab monitor now. (3) Closed left femoral fracture Qualifiers: Qualified Code(s): S72.092A - Other fracture of head and neck of left femur, initial encounter for closed fracture
[2020-06-19] MEDS: SODIUM CHLORIDE 0.9% 1,000 ML IV SCH ×2 (11:30→22:00)
[2020-06-19] MEDS: ACETAMINOPHEN 325 MG TABLET PO PRN (17:43)
[2020-06-19] MEDS: QUEtiapine 100 MG TABLET PO SCH (22:03)
[2020-06-20 06:07] LABS: BASOPHILS % (AUTO) 0.2 %; EOSINOPHILS # (AUTO) 0.1 10^3/uL (0.0-0.7); EOSINOPHILS % (AUTO) 1.4 %; HGB - HEMOGLOBIN 8.5 g/dL (12.0-16.0); LYMPHOCYTES # (AUTO) 1.1 10^3/uL (1.5-3.5); LYMPHOCYTES % (AUTO) 17.2 %; MEAN CORPUSCULAR HEMOGLOBIN 31.1 pg (27.0-31.0); MEAN CORPUSCULAR HGB CONC 32.8 g/dL (32.0-36.0); MEAN CORPUSCULAR VOLUME 94.9 fL (81.0-99.0); MEAN PLATELET VOLUME 10.4 fL (7.9-10.8); MONOCYTES # (AUTO) 0.6 10^3/uL (0.0-1.0); MONOCYTES % (AUTO) 9.9 %; NEUTROPHILS # (AUTO) 4.4 10^3/uL (1.5-6.6); NEUTROPHILS % (AUTO) 69.9 %; PLT - PLATELET COUNT 283 10^3/uL (130-450); RED BLOOD COUNT 2.73 10^6/uL (4.20-5.40); WHITE BLOOD COUNT 6.3 x10^3/uL (4.8-10.8)
[2020-06-20 06:14] LABS: CALCIUM 7.9 mg/dL (8.5-10.3); CREATININE 0.7 mg/dL (0.4-1.0)
[2020-06-20] MEDS: PANTOPRAZOLE 40 MG TABLET PO SCH (07:26)
[2020-06-20] MEDS: FERROUS SULFATE 325 MG TABLET PO SCH ×2 (08:00→17:12)
[2020-06-20] MEDS: CHOLECALCIFEROL 25 MCG TABLET PO SCH (09:32)
[2020-06-20] MEDS: MEMANTINE 5 MG TABLET PO SCH ×2 (09:32→21:38)
[2020-06-20] MEDS: CALCIUM CITRATE 250 MG TABLET PO SCH ×2 (09:33→21:38)
[2020-06-20] MEDS: DOCUSATE SODIUM 250 MG CAPSULE PO SCH (09:33)
[2020-06-20] MEDS: TAMSULOSIN 0.4 MG CAPSULE PO SCH (09:33)
[2020-06-20] MEDS: SENNA 8.6 MG TABLET PO SCH ×2 (09:33→21:38)
[2020-06-20] MEDS: QUEtiapine 25 MG TABLET PO SCH (09:33)
[2020-06-20] MEDS: ASPIRIN EC 81 MG TABLET PO SCH ×2 (09:33→21:39)
[2020-06-20] MEDS: polyethylene glycoL 3350 17 GM PACKET PO SCH (09:34)
[2020-06-20] MEDS: SODIUM CHLORIDE 0.9% 1,000 ML IV SCH ×2 (09:34→21:37)
[2020-06-20] MEDS: lisinopriL 20 MG TABLET PO SCH ×2 (09:35→21:39)
[2020-06-20] MEDS: METOPROLOL TARTRATE 25 MG TABLET PO SCH ×2 (09:35→21:39)
[2020-06-20] MEDS: SODIUM CHLORIDE FLUSH 0.9% 10 ML SYRINGE IVP SCH ×2 (09:36→17:13)
--- NOTE | 2020-06-20 12:06 | PROVIDER PROGRESS NOTE ---
Assessment/Plan - Problem List (1) Acute hypoxemic respiratory failure due to COVID-19 Assessment/Plan: 06/20 It is seems slightly improved. Patient has a 96% sats on room air. Patient ate 95% on yesterday by feeding although she still had lower degree of fever. Today in the morning she has no fever as far. 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 CXR reveals Covid 19 pattern but stable comparing with 06/16 CXR, right lobes has more patch than left. Will give NC of O2 supplement to pt. But p t is confused and frequently took NC off by herself. continue appropriately IVF, continue feeding pt, continue vital and lab monitor pt, continue support pt. (2)fever 1120,From yesterday evening to today now, patient has no fever, Continue intravenous IV fluids, continue feeding patient, continue support to patient. 06/19, pt had fever 38.4 degree and continue to have elevated temperature. it is likely relative to Covid 19 infection. continue Tylenol PRN, continue vital monitor, continue supplement of O2, continue feeding and support to pt. (1) COVID-19 virus detected 1120,Patient's WBC is a slightly increased. We will continue support to patient as above 06-19 pt continue to be positive Covid 19, update pt's medical conditions to pt 's family and DPOA, continue support to pt. (2) Staphylococcus epidermidis bacteremia Impression: it was likely contaminated blood culture. nocturnal provider already hold antibiotics. pt's spotted fever is likely from pt's COvid 19 infection. (3) Closed left femoral fracture Impression: 1120,We will continue physical therapist and occupational therapist for patient, Continue pain control 06-19, continue pain control, continue consult with PT/OT 06/18 Today we will have physical therapist and occupational therapist for patient, continue pain control, continue DVT prophylaxis. Today is postop day #5 for a postoperative left hip repair. continue pain control, DVT prophylaxis, pt's [place] was already discontinued. Because pt's O2 sat was drop on the morning, PT is hold on today, but will Continue to work with physical therapy to see if we can get her to [facility] for rehab or back to memory care unit at assisted living facility. (4)delirium 1120, as patient's baseline 06-19, pt is still confused, pt is likely combination of pt's underline advanced dementia, Covid 19 infection, and recently hip repair and pain control 06/18, slight improved today, she is comfortablly sleeping at the bed. Patient has baseline confusion and disorientation. suspect it might be caused by she has postoperative anesthesia effect superimposed on her dementia, and Covid 19 infection. She is on Seroquel and memantine since yesterday. Avoiding the use of benzodiazepines at this time. continue neur check (5) Atrial flutter, paroxysmal Conclusion/Plan: Rate is controlled. She is actually been sinus. continue metoprolol. (6) Hypertension Conclusion/Plan: stable, continue home meds (7) Dementia Conclusion/Plan: stable as her baseline. pt has Delirium present in the postoperative setting. Avoiding benzodiazepines. (8) hypokalemia Potassium was 3.3, replacement, and lab monitor (9) acute blood loss anemia due to surgery 06/19 stable, continue iron supplement. 06/18, Patient is found to have significant iron deficiency, we will start give patient iron. 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 She was 10.5 on postop day 1 and 2. On postop day 4 she was 9. will continue lab monitor now. (3) Closed left femoral fracture Qualifiers: Qualified Code(s): S72.092A - Other fracture of head and neck of left femur, initial encounter for closed fracture - Current Meds Current Meds: Current Medications Generic Name Dose Route Start Last Admin Trade Name Freq PRN Reason Stop Dose Admin Acetaminophen 650 mg 06/18/20 07:45 06/19/20 17:43 Tylenol PO 650 mg Q4HR PRN Administration Pain or Fever > 38C (100.4F) Aspirin 81 mg 06/12/20 21:00 06/20/20 09:33 Ecotrin PO 81 mg BID MOOSE Administration Bisacodyl 10 mg 06/12/20 15:39 06/14/20 22:23 Dulcolax Supp NM 10 mg Q12H PRN Administration Constipation Calcium Citrate 250 mg 06/13/20 14:00 06/20/20 09:33 PO 250 mg BID MOOSE Administration Cholecalciferol 50 mcg 06/13/20 17:00 06/20/20 09:32 Vitamin D3 PO 50 mcg DAILY MOOSE Administration Docusate Sodium 250 - 500 mg 06/13/20 09:00 06/20/20 09:33 Colace 250mg Capsule PO 250 mg DAILY MOOSE Administration Ferrous Sulfate 325 mg 06/18/20 17:00 06/20/20 08:00 Feosol PO 325 mg BIDWM MOOSE Administration Sodium Chloride 1,000 mls @ 85 mls/hr 06/15/20 09:00 06/20/20 09:34 Normal Saline 0.9% IV 85 mls/hr .[id number] MOOSE Administration Lisinopril 20 mg 06/13/20 11:00 06/20/20 09:35 Zestril PO 20 mg BID MOOSE Administration Memantine 10 mg 06/13/20 21:00 06/20/20 09:32 Namenda PO 10 mg BID MOOSE Administration Metoprolol Tartrate 25 mg 06/11/20 22:00 06/20/20 09:35 Lopressor PO 25 mg BID MOOSE Administration Pantoprazole Sodium 40 mg 06/12/20 07:00 06/20/20 07:26 Protonix PO Not Given QDAC MOOSE Polyethylene Glycol 17 gm 06/13/20 09:00 06/20/20 09:34 Miralax PO 17 gm DAILY MOOSE Administration Quetiapine Fumarate 50 mg 06/19/20 21:00 06/19/20 22:03 Seroquel PO 50 mg QPM MOOSE Administration Quetiapine Fumarate 25 mg 06/19/20 10:00 06/20/20 09:33 Seroquel PO 25 mg DAILY MOOSE Administration Senna 8.6 - 17.2 mg 06/14/20 17:51 06/20/20 09:33 Senokot PO 8.6 mg BID MOOSE Administration Sodium Chloride 10 ml 06/11/20 21:23 06/15/20 05:24 Normal Saline Flush 0.9% IVP 10 ml PRN PRN Administration NEEDED PER PROVIDER ORDERS Sodium Chloride 10 ml 06/12/20 17:00 06/20/20 09:36 Normal Saline Flush 0.9% IVP Not Given 0100,0900,1700 MOOSE Tamsulosin HCl 0.4 mg 06/14/20 12:00 06/20/20 09:33 Flomax PO 0.4 mg DAILY MOOSE Administration - Lab Result Fish Bone Diagrams: 06/20/20 05:55 06/20/20 05:55 - Additional Planning My Orders: My Active Orders 06/19/20 21:00 QUEtiapine [SEROquel] 50 mg PO QPM 06/21/20 05:00 BMP - BASIC METABOLIC PANEL [CHEM] DAILYLAB CBC - COMP BLD CT W/AUTO DIFF [HEME] DAILYLAB 06/22/20 05:00 BMP - BASIC METABOLIC PANEL [CHEM] DAILYLAB CBC - COMP BLD CT W/AUTO DIFF [HEME] DAILYLAB Subjective - Subjective Nursing Reports: Confused Objective Vital Signs: Vital Signs - 24 hr 06/19/20 06/19/20 06/19/20 14:00 17:35 21:38 Temperature 37.8 C 38.4 C H 37.1 C Heart Rate [ 77 80 Brachial] Respiratory 20 24 Rate Blood Pressure Blood Pressure 138/75 H [Left Brachial artery] Blood Pressure 134/86 H [Right Ankle] Blood Pressure [Right Brachial artery] O2 Saturation 95 94 06/19/20 06/19/20 06/20/20 21:59 22:03 00:23 Temperature 36.7 C Heart Rate [ 78 63 Brachial] Respiratory 21 20 Rate Blood Pressure 113/72 Blood Pressure [Left Brachial artery] Blood Pressure [Right Ankle] Blood Pressure 113/72 103/56 L [Right Brachial artery] O2 Saturation 94 96 06/20/20 06/20/20 09:00 09:35 Temperature 37.0 C Heart Rate [ 76 Brachial] Respiratory 18 Rate Blood Pressure 159/82 H Blood Pressure [Left Brachial artery] Blood Pressure [Right Ankle] Blood Pressure 159/82 H [Right Brachial artery] O2 Saturation 96 Oxygen O2 Source Room air I&O (Last 24 Hrs): Intake and Output Totals x24h 06/18/20 06/19/20 06/20/20 23:59 23:59 23:59 Intake Total 2491.917 2567.667 983.167 Output Total 2075 9675 1000 Balance 416.917 -1057.333 -16.833 General: Alert, No acute distress Neck: Supple Lymphatic: no adenopathy Neuro: Alert, Non Focal Cardiovascular: Regular rate, Normal S1, Normal S2 Respiratory: Chest non-tender, No respiratory distress Abdomen: Normal bowel sounds, Soft Extremities: Normal pulses - Results Results: Laboratory Results WBC 6.3 x10^3/uL (4.8-10.8) 06/20/20 05:55 RBC 2.73 10^6/uL (4.20-5.40) L 06/20/20 05:55 Hgb 8.5 g/dL (12.0-16.0) L 06/20/20 05:55 Hct 25.9 % (37.0-47.0) L 06/20/20 05:55 MCV 94.9 fL (81.0-99.0) 06/20/20 05:55 MCH 31.1 pg (27.0-31.0) H 06/20/20 05:55 MCHC 32.8 g/dL (32.0-36.0) 06/20/20 05:55 RDW 15.0 % (12.0-15.0) 06/20/20 05:55 Plt Count 283 10^3/uL (130-450) 06/20/20 05:55 MPV 10.4 fL (7.9-10.8) 06/20/20 05:55 Reticulocyte % (Auto) 0.89 % (0.5-2.3) 06/18/20 05:05 Neut # (Auto) 4.4 10^3/uL (1.5-6.6) 06/20/20 05:55 Lymph # (Auto) 1.1 10^3/uL (1.5-3.5) L 06/20/20 05:55 [place] # (Auto) 0.6 10^3/uL (0.0-1.0) 06/20/20 05:55 Eos # (Auto) 0.1 10^3/uL (0.0-0.7) 06/20/20 05:55 Baso # (Auto) 0.0 10^3/uL (0.0-0.1) 06/20/20 05:55 Absolute Nucleated RBC 0.02 x10^3/uL 06/20/20 05:55 Nucleated RBC % 0.3 /100WBC 06/20/20 05:55 Absolute Retic 0.024 10^6/uL (0.020-0.110) 06/18/20 05:05 PT 13.0 secs (9.9-12.6) H 06/11/20 19:45 INR 1.2 (0.8-1.2) 06/11/20 19:45 Sodium 138 mmol/L (135-145) 06/20/20 05:55 Potassium 3.8 mmol/L (3.5-5.0) 06/20/20 05:55 Chloride 105 mmol/L (101-111) 06/20/20 05:55 Carbon Dioxide 21 mmol/L (21-32) 06/20/20 05:55 Anion Gap 12.0 (6-13) 06/20/20 05:55 BUN 14 mg/dL (6-20) 06/20/20 05:55 Creatinine 0.7 mg/dL (0.4-1.0) 06/20/20 05:55 Estimated GFR (MDRD) 80 (>89) L 06/20/20 05:55 Glucose 103 mg/dL (70-100) H 06/20/20 05:55 Lactic Acid 1.4 mmol/L (0.5-2.2) 06/11/20 23:30 Calcium 7.9 mg/dL (8.5-10.3) L 06/20/20 05:55 Phosphorus 3.1 mg/dL (2.5-4.6) 06/15/20 06:50 Magnesium 1.9 mg/dL (1.7-2.8) 06/15/20 06:50 Iron < 6 ug/dL (28-170) L 06/18/20 05:05 TIBC 221 ug/dL (250-450) L 06/18/20 05:05 Transferrin 158 mg/dL (192-382) L 06/18/20 05:05 Ferritin 146.1 ng/mL (11.0-306.8) 06/18/20 05:05 Total Bilirubin 0.7 mg/dL (0.2-1.0) 06/11/20 19:45 AST 29 IU/L (10-42) 06/11/20 19:45 ALT 19 IU/L (10-60) 06/11/20 19:45 Alkaline Phosphatase 68 IU/L (42-121) 06/11/20 19:45 Lactate Dehydrogenase 191 IU/L (91-225) 06/18/20 05:05 Troponin I High Sens 10.5 ng/L (2.3-14.8) 06/11/20 19:45 Total Protein 7.8 g/dL (6.7-8.2) 06/11/20 19:45 Albumin 4.2 g/dL (3.2-5.5) 06/11/20 19:45 Globulin 3.6 g/dL (2.1-4.2) 06/11/20 19:45 Albumin/Globulin Ratio 1.2 (1.0-2.2) 06/11/20 19:45 Vitamin B12 2956 pg/mL (180-914) H 06/18/20 05:05 TSH 2.31 uIU/mL (0.34-5.60) 06/12/20 05:20 Urine Color YELLOW 06/18/20 10:30 Urine Clarity CLEAR (CLEAR) 06/18/20 10:30 Urine pH 7.0 PH (5.0-7.5) 06/18/20 10:30 Ur Specific [place] 1.015 (1.002-1.030) 06/18/20 10:30 Urine Protein NEGATIVE mg/dL (NEGATIVE) 06/18/20 10:30 Urine Glucose (UA) NEGATIVE mg/dL (NEGATIVE) 06/18/20 10:30 Urine Ketones NEGATIVE mg/dL (NEGATIVE) 06/18/20 10:30 Urine Occult Blood NEGATIVE (NEGATIVE) 06/18/20 10:30 Urine Nitrite NEGATIVE (NEGATIVE) 06/18/20 10:30 Urine Bilirubin NEGATIVE (NEGATIVE) 06/18/20 10:30 Urine Urobilinogen 0.2 (NORMAL) E.U./dL (NORMAL) 06/18/20 10:30 Ur Leukocyte Esterase NEGATIVE (NEGATIVE) 06/18/20 10:30 Urine RBC None Seen /HPF (0-5) 06/18/20 10:30 Urine WBC 0-3 /HPF (0-5) 06/18/20 10:30 Ur Squamous Epith Cells NONE SEEN (<= Few) 06/18/20 10:30 Urine Bacteria None Seen /HPF (None Seen) 06/18/20 10:30 Urine Culture Comments NOT INDICATED 06/18/20 10:30 Nasal Adenovirus (PCR) NOT DETECTED 06/17/20 12:15 Nasal B. parapertussis DNA (PCR) NOT DETECTED 06/17/20 12:15 Nasal Coronavir 229E PCR NOT DETECTED 06/17/20 12:15 Nasal Coronavir HKU1 PCR NOT DETECTED 06/17/20 12:15 Nasal Coronavir NL63 PCR NOT DETECTED 06/17/20 12:15 Nasal Coronavir OC43 PCR NOT DETECTED 06/17/20 12:15 Nasal Enterovir/Rhinovir PCR NOT DETECTED 06/17/20 12:15 Nasal Influenza B PCR NOT DETECTED 06/17/20 12:15 Nasal Influenza A PCR NOT DETECTED 06/17/20 12:15 Nasal Parainfluen 1 PCR NOT DETECTED 06/17/20 12:15 Nasal Parainfluen 2 PCR NOT DETECTED 06/17/20 12:15 Nasal Parainfluen 3 PCR NOT DETECTED 06/17/20 12:15 Nasal Parainfluen 4 PCR NOT DETECTED 06/17/20 12:15 Nasal RSV (PCR) NOT DETECTED 06/17/20 12:15 Nasal B.pertussis DNA PCR NOT DETECTED 06/17/20 12:15 Nasal C.pneumoniae (PCR) NOT DETECTED 06/17/20 12:15 Farooq Human Metapneumo PCR NOT DETECTED 06/17/20 12:15 Nasal M.pneumoniae (PCR) NOT DETECTED 06/17/20 12:15 Nasal SARS-CoV-2 (PCR) DETECTED A 06/17/20 12:15 ABX Reporting Has patient been on IV antibiotics over the past 48 hours?: No Current Medications - Current Medications Current Medications: Active Medications Acetaminophen (Tylenol) 650 mg PO Q4HR PRN PRN Reason: Pain or Fever > 38C (100.4F) Last Admin: 06/19/20 17:43 Dose: 650 mg Documented by: Aspirin (Ecotrin) 81 mg PO BID [facility] Last Admin: 06/20/20 09:33 Dose: 81 mg Documented by: Bisacodyl (Dulcolax Supp) 10 mg NM Q12H PRN PRN Reason: Constipation Last Admin: 06/14/20 22:23 Dose: 10 mg Documented by: Calcium Citrate () 250 mg PO BID [facility] Last Admin: 06/20/20 09:33 Dose: 250 mg Documented by: Cholecalciferol (Vitamin D3) 50 mcg PO DAILY [facility] Last Admin: 06/20/20 09:32 Dose: 50 mcg Documented by: Docusate Sodium (Colace 250mg Capsule) 250 - 500 mg PO DAILY [facility] Last Admin: 06/20/20 09:33 Dose: 250 mg Documented by: Ferrous Sulfate (Feosol) 325 mg PO BIDWM [facility] Last Admin: 06/20/20 08:00 Dose: 325 mg Documented by: Hydromorphone HCl (Dilaudid Inj Syringe) 0.2 mg IVP Q2H PRN PRN Reason: Pain 8 to 10 Sodium Chloride (Normal Saline 0.9%) 1,000 mls @ 85 mls/hr IV .[id number] [facility] Last Admin: 06/20/20 09:34 Dose: 85 mls/hr Documented by: Lisinopril (Zestril) 20 mg PO BID [facility] Last Admin: 06/20/20 09:35 Dose: 20 mg Documented by: Memantine (Namenda) 10 mg PO BID [facility] Last Admin: 06/20/20 09:32 Dose: 10 mg Documented by: Metoprolol Tartrate (Lopressor) 25 mg PO BID [facility] Last Admin: 06/20/20 09:35 Dose: 25 mg Documented by: Ondansetron HCl (Zofran Inj) 4 mg IVP Q6HR PRN PRN Reason: Nausea / Vomiting Oxycodone HCl (Roxicodone) 2.5 mg PO Q4HR PRN PRN Reason: PAIN 5-7 Pantoprazole Sodium (Protonix) 40 mg PO QDAC [facility] Last Admin: 06/20/20 07:26 Dose: Not Given Documented by: Polyethylene Glycol (Miralax) 17 gm PO DAILY [facility] Last Admin: 06/20/20 09:34 Dose: 17 gm Documented by: Quetiapine Fumarate (Seroquel) 50 mg PO QPM [facility] Last Admin: 06/19/20 22:03 Dose: 50 mg Documented by: Quetiapine Fumarate (Seroquel) 25 mg PO DAILY [facility] Last Admin: 06/20/20 09:33 Dose: 25 mg Documented by: Raheem (Senokot) 8.6 - 17.2 mg PO BID [facility] Last Admin: 06/20/20 09:33 Dose: 8.6 mg Documented by: Sodium Chloride (Normal Saline Flush 0.9%) 10 ml IVP PRN PRN PRN Reason: NEEDED PER PROVIDER ORDERS Last Admin: 06/15/20 05:24 Dose: 10 ml Documented by: Sodium Chloride (Normal Saline Flush 0.9%) 10 ml IVP 0100,0900,1700 [facility] Last Admin: 06/20/20 09:36 Dose: Not Given Documented by: Tamsulosin HCl (Flomax) 0.4 mg PO DAILY [facility] Last Admin: 06/20/20 09:33 Dose: 0.4 mg Documented by: Memantine HCl [Namenda] 10 mg PO BID 01/24/18 lisinopriL [Lisinopril] 20 mg PO BID 01/24/18 QUEtiapine [SEROquel] 25 mg PO DAILY 05/19/19 Acetaminophen [Tylenol] 325 mg PO PRN PRN 06/12/20 QUEtiapine [SEROquel] 50 mg PO QPM 06/12/20
[2020-06-20] MEDS: QUEtiapine 100 MG TABLET PO SCH (21:39)
[2020-06-20] MEDS: ACETAMINOPHEN 325 MG TABLET PO PRN (21:47)
[2020-06-21] MEDS: SODIUM CHLORIDE FLUSH 0.9% 10 ML SYRINGE IVP SCH ×3 (00:40→16:27)
[2020-06-21] MEDS: ACETAMINOPHEN 325 MG TABLET PO PRN ×2 (05:58→17:16)
[2020-06-21] MEDS: PANTOPRAZOLE 40 MG TABLET PO SCH (05:58)
[2020-06-21 06:18] LABS: BASOPHILS % (AUTO) 0.4 %; EOSINOPHILS % (AUTO) 0.6 %; HGB - HEMOGLOBIN 8.9 g/dL (12.0-16.0); LYMPHOCYTES % (AUTO) 18.1 %; MEAN CORPUSCULAR HEMOGLOBIN 31.6 pg (27.0-31.0); MEAN CORPUSCULAR VOLUME 95.7 fL (81.0-99.0); MEAN PLATELET VOLUME 10.8 fL (7.9-10.8); MONOCYTES # (AUTO) 0.6 10^3/uL (0.0-1.0); MONOCYTES % (AUTO) 11.5 %; NEUTROPHILS # (AUTO) 3.6 10^3/uL (1.5-6.6); NEUTROPHILS % (AUTO) 68.3 %; PLT - PLATELET COUNT 302 10^3/uL (130-450); RED BLOOD COUNT 2.82 10^6/uL (4.20-5.40); RED CELL DISTRIBUTION WIDTH 14.7 % (12.0-15.0); WHITE BLOOD COUNT 5.3 x10^3/uL (4.8-10.8)
[2020-06-21 06:27] LABS: CALCIUM 7.6 mg/dL (8.5-10.3); CREATININE 0.8 mg/dL (0.4-1.0)
[2020-06-21] MEDS: polyethylene glycoL 3350 17 GM PACKET PO SCH (08:29)
[2020-06-21] MEDS: METOPROLOL TARTRATE 25 MG TABLET PO SCH ×2 (08:32→21:02)
[2020-06-21] MEDS: lisinopriL 20 MG TABLET PO SCH ×2 (08:32→21:01)
[2020-06-21] MEDS: ASPIRIN EC 81 MG TABLET PO SCH ×2 (08:32→21:01)
[2020-06-21] MEDS: CHOLECALCIFEROL 25 MCG TABLET PO SCH (08:32)
[2020-06-21] MEDS: MEMANTINE 5 MG TABLET PO SCH ×2 (08:33→21:00)
[2020-06-21] MEDS: CALCIUM CITRATE 250 MG TABLET PO SCH ×2 (08:33→21:01)
[2020-06-21] MEDS: FERROUS SULFATE 325 MG TABLET PO SCH ×2 (08:33→16:27)
[2020-06-21] MEDS: SENNA 8.6 MG TABLET PO SCH ×2 (08:33→21:00)
[2020-06-21] MEDS: TAMSULOSIN 0.4 MG CAPSULE PO SCH (08:33)
[2020-06-21] MEDS: QUEtiapine 25 MG TABLET PO SCH (08:33)
[2020-06-21] MEDS: DOCUSATE SODIUM 250 MG CAPSULE PO SCH (08:36)
[2020-06-21] MEDS: SODIUM CHLORIDE 0.9% 1,000 ML IV SCH ×2 (10:29→20:47)
--- NOTE | 2020-06-21 15:07 | PROVIDER PROGRESS NOTE ---
Assessment/Plan - Problem List (1) Dementia Qualifiers: Dementia type: unspecified type Dementia behavioral disturbance: with behavioral disturbance Qualified Code(s): F03.91 - Unspecified dementia with behavioral disturbance Assessment/Plan: I witnessed the patient having her session with PT. She refuses to move, she d oes not follow cues, she did swing at the Physical Therapist once. She answers in normal sentences but then has some garbled words mixed in with it. Her RN tells me that she is not oriented even to self. It appears that she is not "skillable" and would not participate in PT rehab at a SNF. She requires placement for shelter care. This was communicated to social work and ship manager. Continue Namenda and Seroquel. (2) Fracture of femoral neck, left, closed Qualifiers: Encounter type: subsequent encounter Assessment/Plan: Is postop day number blank after hip surgery. I witnessed the patient having her session with PT. She refuses to get up, she does not follow cues, she did swing at the PT person once. It appears that she is not "skillable" and would not participate in PT rehab at a SNF. She requires placement for shelter care, not a SNF. This was communicated to Social Work and ship manager. (3) COVID-19 virus detected Assessment/Plan: She did not have a cough the entire time I was in the room, does not have any respiratory distress and is saturating adequately on room air today. She did have a fever at 10 pm last night. It appears she has a fever about every other day. Supportive care for any symptoms is ordered. She is on respiratory isolation precautions and her room. (4) Anemia Assessment/Plan: Hemoglobin was 12 at admission, has drifted down to about 9. This is presumed to be from hemodilution from IV fluids plus EBL during the hip surgery. Patient is found to have significant iron deficiency. Continue oral iron replacement. Monitor H/H daily. (5) Hypokalemia Assessment/Plan: Related to very poor p.o. intake (she vacillates between 10% intake and 50% intake). Replace either orally or with IV runners. Follow BMP daily (6) Hypertension Assessment/Plan: BP is stable on her home meds (7) Atrial flutter, paroxysmal Assessment/Plan: She is in sinus rhythm. Continue metoprolol. She is on no DOAC, is not a candidate for it because of her falls. She is on aspirin, ordered by orthopedics. - Current Meds Current Meds: Current Medications Generic Name Dose Route Start Last Admin Trade Name Freq PRN Reason Stop Dose Admin Acetaminophen 650 mg 06/18/20 07:45 06/21/20 05:58 Tylenol PO 650 mg Q4HR PRN Administration Pain or Fever > 38C (100.4F) Aspirin 81 mg 06/12/20 21:00 06/21/20 08:32 Ecotrin PO 81 mg BID MOOSE Administration Bisacodyl 10 mg 06/12/20 15:39 06/14/20 22:23 Dulcolax Supp [place] 10 mg Q12H PRN Administration Constipation Calcium Citrate 250 mg 06/13/20 14:00 06/21/20 08:33 PO 250 mg BID MOOSE Administration Cholecalciferol 50 mcg 06/13/20 17:00 06/21/20 08:32 Vitamin D3 PO 50 mcg DAILY MOOSE Administration Docusate Sodium 250 - 500 mg 06/13/20 09:00 06/21/20 08:36 Colace 250mg Capsule PO Not Given DAILY MOOSE Ferrous Sulfate 325 mg 06/18/20 17:00 06/21/20 08:33 Feosol PO 325 mg BIDWM MOOSE Administration Sodium Chloride 1,000 mls @ 85 mls/hr 06/15/20 09:00 06/21/20 10:29 Normal Saline 0.9% IV 85 mls/hr .[id number] MOOSE Administration Lisinopril 20 mg 06/13/20 11:00 06/21/20 08:32 Zestril PO 20 mg BID MOOSE Administration Memantine 10 mg 06/13/20 21:00 06/21/20 08:33 Namenda PO 10 mg BID MOOSE Administration Metoprolol Tartrate 25 mg 06/11/20 22:00 06/21/20 08:32 Lopressor PO 25 mg BID MOOSE Administration Pantoprazole Sodium 40 mg 06/12/20 07:00 06/21/20 05:58 Protonix PO 40 mg QDAC MOOSE Administration Polyethylene Glycol 17 gm 06/13/20 09:00 06/21/20 08:29 Miralax PO 17 gm DAILY MOOSE Administration Quetiapine Fumarate 50 mg 06/19/20 21:00 06/20/20 21:39 Seroquel PO 50 mg QPM MOOSE Administration Quetiapine Fumarate 25 mg 06/19/20 10:00 06/21/20 08:33 Seroquel PO 25 mg DAILY MOOSE Administration Senna 8.6 - 17.2 mg 06/14/20 17:51 06/21/20 08:33 Senokot PO 8.6 mg BID MOOSE Administration Sodium Chloride 10 ml 06/11/20 21:23 06/15/20 05:24 Normal Saline Flush 0.9% IVP 10 ml PRN PRN Administration NEEDED PER PROVIDER ORDERS Sodium Chloride 10 ml 06/12/20 17:00 06/21/20 08:36 Normal Saline Flush 0.9% IVP Not Given 0100,0900,1700 MOOSE Tamsulosin HCl 0.4 mg 06/14/20 12:00 06/21/20 08:33 Flomax PO 0.4 mg DAILY MOOSE Administration - Lab Result Fish Bone Diagrams: 06/21/20 06:10 06/21/20 06:10 Subjective - Subjective Nursing Reports: Other (She refused her lunch, had taken 50% of her breakfast, needed to be fed. She has only had minimal cough today and no respiratory distress) Objective Vital Signs: Vital Signs - 24 hr 06/20/20 06/20/20 06/21/20 21:39 22:00 08:28 Temperature 38.1 C H 36.9 C Heart Rate [ 84 67 Brachial] Respiratory 24 18 Rate Blood Pressure 165/83 H Blood Pressure 165/83 H 109/70 [Right Brachial artery] O2 Saturation 96 96 06/21/20 06/21/20 08:32 12:00 Temperature 36.4 C L Heart Rate [ Brachial] Respiratory Rate Blood Pressure 110/65 Blood Pressure [Right Brachial artery] O2 Saturation Oxygen O2 Source Room air I&O (Last 24 Hrs): Intake and Output Totals x24h 06/19/20 06/20/20 06/21/20 23:59 23:59 23:59 Intake Total 2567.667 2193.167 1220 Output Total 3625 3250 1100 Balance -1057.333 -1056.833 120 General: Alert HEENT: Mucous membr. moist/pink Neck: Supple, No JVD Neuro: Disoriented, Non Focal Cardiovascular: Regular rate Respiratory: No respiratory distress Abdomen: Other (Not distended) Extremities: No edema - Results Results: Laboratory Results WBC 5.3 x10^3/uL (4.8-10.8) 06/21/20 06:10 RBC 2.82 10^6/uL (4.20-5.40) L 06/21/20 06:10 Hgb 8.9 g/dL (12.0-16.0) L 06/21/20 06:10 Hct 27.0 % (37.0-47.0) L 06/21/20 06:10 MCV 95.7 fL (81.0-99.0) 06/21/20 06:10 MCH 31.6 pg (27.0-31.0) H 06/21/20 06:10 MCHC 33.0 g/dL (32.0-36.0) 06/21/20 06:10 RDW 14.7 % (12.0-15.0) 06/21/20 06:10 Plt Count 302 10^3/uL (130-450) 06/21/20 06:10 MPV 10.8 fL (7.9-10.8) 06/21/20 06:10 Reticulocyte % (Auto) 0.89 % (0.5-2.3) 06/18/20 05:05 Neut # (Auto) 3.6 10^3/uL (1.5-6.6) 06/21/20 06:10 Lymph # (Auto) 1.0 10^3/uL (1.5-3.5) L 06/21/20 06:10 [place] # (Auto) 0.6 10^3/uL (0.0-1.0) 06/21/20 06:10 Eos # (Auto) 0.0 10^3/uL (0.0-0.7) 06/21/20 06:10 Baso # (Auto) 0.0 10^3/uL (0.0-0.1) 06/21/20 06:10 Absolute Nucleated RBC 0.00 x10^3/uL 06/21/20 06:10 Nucleated RBC % 0.0 /100WBC 06/21/20 06:10 Absolute Retic 0.024 10^6/uL (0.020-0.110) 06/18/20 05:05 PT 13.0 secs (9.9-12.6) H 06/11/20 19:45 INR 1.2 (0.8-1.2) 06/11/20 19:45 Sodium 134 mmol/L (135-145) L 06/21/20 06:10 Potassium 3.2 mmol/L (3.5-5.0) L 06/21/20 06:10 Chloride 102 mmol/L (101-111) 06/21/20 06:10 Carbon Dioxide 22 mmol/L (21-32) 06/21/20 06:10 Anion Gap 10.0 (6-13) 06/21/20 06:10 BUN 12 mg/dL (6-20) 06/21/20 06:10 Creatinine 0.8 mg/dL (0.4-1.0) 06/21/20 06:10 Estimated GFR (MDRD) 69 (>89) L 06/21/20 06:10 Glucose 105 mg/dL (70-100) H 06/21/20 06:10 Lactic Acid 1.4 mmol/L (0.5-2.2) 06/11/20 23:30 Calcium 7.6 mg/dL (8.5-10.3) L 06/21/20 06:10 Phosphorus 3.1 mg/dL (2.5-4.6) 06/15/20 06:50 Magnesium 1.9 mg/dL (1.7-2.8) 06/15/20 06:50 Iron < 6 ug/dL (28-170) L 06/18/20 05:05 TIBC 221 ug/dL (250-450) L 06/18/20 05:05 Transferrin 158 mg/dL (192-382) L 06/18/20 05:05 Ferritin 146.1 ng/mL (11.0-306.8) 06/18/20 05:05 Total Bilirubin 0.7 mg/dL (0.2-1.0) 06/11/20 19:45 AST 29 IU/L (10-42) 06/11/20 19:45 ALT 19 IU/L (10-60) 06/11/20 19:45 Alkaline Phosphatase 68 IU/L (42-121) 06/11/20 19:45 Lactate Dehydrogenase 191 IU/L (91-225) 06/18/20 05:05 Troponin I High Sens 10.5 ng/L (2.3-14.8) 06/11/20 19:45 Total Protein 7.8 g/dL (6.7-8.2) 06/11/20 19:45 Albumin 4.2 g/dL (3.2-5.5) 06/11/20 19:45 Globulin 3.6 g/dL (2.1-4.2) 06/11/20 19:45 Albumin/Globulin Ratio 1.2 (1.0-2.2) 06/11/20 19:45 Vitamin B12 2956 pg/mL (180-914) H 06/18/20 05:05 TSH 2.31 uIU/mL (0.34-5.60) 06/12/20 05:20 Urine Color YELLOW 06/18/20 10:30 Urine Clarity CLEAR (CLEAR) 06/18/20 10:30 Urine pH 7.0 PH (5.0-7.5) 06/18/20 10:30 Ur Specific [place] 1.015 (1.002-1.030) 06/18/20 10:30 Urine Protein NEGATIVE mg/dL (NEGATIVE) 06/18/20 10:30 Urine Glucose (UA) NEGATIVE mg/dL (NEGATIVE) 06/18/20 10:30 Urine Ketones NEGATIVE mg/dL (NEGATIVE) 06/18/20 10:30 Urine Occult Blood NEGATIVE (NEGATIVE) 06/18/20 10:30 Urine Nitrite NEGATIVE (NEGATIVE) 06/18/20 10:30 Urine Bilirubin NEGATIVE (NEGATIVE) 06/18/20 10:30 Urine Urobilinogen 0.2 (NORMAL) E.U./dL (NORMAL) 06/18/20 10:30 Ur Leukocyte Esterase NEGATIVE (NEGATIVE) 06/18/20 10:30 Urine RBC None Seen /HPF (0-5) 06/18/20 10:30 Urine WBC 0-3 /HPF (0-5) 06/18/20 10:30 Ur Squamous Epith Cells NONE SEEN (<= Few) 06/18/20 10:30 Urine Bacteria None Seen /HPF (None Seen) 06/18/20 10:30 Urine Culture Comments NOT INDICATED 06/18/20 10:30 Nasal Adenovirus (PCR) NOT DETECTED 06/17/20 12:15 Nasal B. parapertussis DNA (PCR) NOT DETECTED 06/17/20 12:15 Nasal Coronavir 229E PCR NOT DETECTED 06/17/20 12:15 Nasal Coronavir HKU1 PCR NOT DETECTED 06/17/20 12:15 Nasal Coronavir NL63 PCR NOT DETECTED 06/17/20 12:15 Nasal Coronavir OC43 PCR NOT DETECTED 06/17/20 12:15 Nasal Enterovir/Rhinovir PCR NOT DETECTED 06/17/20 12:15 Nasal Influenza B PCR NOT DETECTED 06/17/20 12:15 Nasal Influenza A PCR NOT DETECTED 06/17/20 12:15 Nasal Parainfluen 1 PCR NOT DETECTED 06/17/20 12:15 Nasal Parainfluen 2 PCR NOT DETECTED 06/17/20 12:15 Nasal Parainfluen 3 PCR NOT DETECTED 06/17/20 12:15 Nasal Parainfluen 4 PCR NOT DETECTED 06/17/20 12:15 Nasal RSV (PCR) NOT DETECTED 06/17/20 12:15 Nasal B.pertussis DNA PCR NOT DETECTED 06/17/20 12:15 Nasal C.pneumoniae (PCR) NOT DETECTED 06/17/20 12:15 [place] Human Metapneumo PCR NOT DETECTED 06/17/20 12:15 Nasal M.pneumoniae (PCR) NOT DETECTED 06/17/20 12:15 Nasal SARS-CoV-2 (PCR) DETECTED A 06/17/20 12:15 Sepsis Event Note (H) - Evaluation Current Stage of Sepsis: Ruled out
[2020-06-21] MEDS: QUEtiapine 100 MG TABLET PO SCH (21:01)
[2020-06-21] MEDS ORDERED: POTASSIUM CHLORIDE 20 MEQ TABLET PO ONE (21:45)
[2020-06-22] MEDS: SODIUM CHLORIDE FLUSH 0.9% 10 ML SYRINGE IVP SCH ×3 (02:28→16:03)
[2020-06-22] MEDS: ACETAMINOPHEN 325 MG TABLET PO PRN (04:22)
[2020-06-22] MEDS: PANTOPRAZOLE 40 MG TABLET PO SCH (06:33)
[2020-06-22 06:50] LABS: BASOPHILS % (AUTO) 0.3 %; EOSINOPHILS # (AUTO) 0.1 10^3/uL (0.0-0.7); EOSINOPHILS % (AUTO) 0.8 %; HGB - HEMOGLOBIN 7.6 g/dL (12.0-16.0); LYMPHOCYTES # (AUTO) 0.9 10^3/uL (1.5-3.5); LYMPHOCYTES % (AUTO) 14.1 %; MEAN CORPUSCULAR HEMOGLOBIN 30.4 pg (27.0-31.0); MEAN CORPUSCULAR HGB CONC 32.5 g/dL (32.0-36.0); MEAN CORPUSCULAR VOLUME 93.6 fL (81.0-99.0); MEAN PLATELET VOLUME 10.3 fL (7.9-10.8); MONOCYTES # (AUTO) 0.6 10^3/uL (0.0-1.0); MONOCYTES % (AUTO) 9.1 %; NEUTROPHILS # (AUTO) 4.6 10^3/uL (1.5-6.6); NEUTROPHILS % (AUTO) 74.6 %; PLT - PLATELET COUNT 327 10^3/uL (130-450); RED CELL DISTRIBUTION WIDTH 14.9 % (12.0-15.0); WHITE BLOOD COUNT 6.2 x10^3/uL (4.8-10.8)
[2020-06-22 07:02] LABS: CALCIUM 7.4 mg/dL (8.5-10.3); CREATININE 0.7 mg/dL (0.4-1.0)
[2020-06-22] MEDS: SODIUM CHLORIDE 0.9% 1,000 ML IV SCH ×2 (08:54→21:20)
[2020-06-22] MEDS: DOCUSATE SODIUM 250 MG CAPSULE PO SCH (08:57)
[2020-06-22] MEDS: polyethylene glycoL 3350 17 GM PACKET PO SCH (08:57)
[2020-06-22] MEDS: SENNA 8.6 MG TABLET PO SCH ×2 (08:58→21:21)
[2020-06-22] MEDS: MEMANTINE 5 MG TABLET PO SCH ×2 (08:58→21:22)
[2020-06-22] MEDS: CHOLECALCIFEROL 25 MCG TABLET PO SCH (08:58)
[2020-06-22] MEDS: CALCIUM CITRATE 250 MG TABLET PO SCH ×2 (08:58→21:23)
[2020-06-22] MEDS: ASPIRIN EC 81 MG TABLET PO SCH ×2 (08:58→21:22)
[2020-06-22] MEDS: QUEtiapine 25 MG TABLET PO SCH (08:58)
[2020-06-22] MEDS: FERROUS SULFATE 325 MG TABLET PO SCH ×2 (08:58→16:02)
[2020-06-22] MEDS: TAMSULOSIN 0.4 MG CAPSULE PO SCH (09:23)
[2020-06-22] MEDS: lisinopriL 20 MG TABLET PO SCH ×2 (09:23→21:22)
[2020-06-22] MEDS: METOPROLOL TARTRATE 25 MG TABLET PO SCH ×2 (09:23→21:22)
--- NOTE | 2020-06-22 17:02 | PROVIDER PROGRESS NOTE ---
Assessment/Plan - Problem List (1) Dementia Qualifiers: Dementia type: unspecified type Dementia behavioral disturbance: with behavioral disturbance Qualified Code(s): F03.91 - Unspecified dementia with behavioral disturbance Assessment/Plan: Unchanged, weak, poor po intake. The social services aide spoke to the son and he is requested that a hospice referral be sent. We will send hospice referral, and social work will try to find a discharge disposition where they take Covid positive patients (2) Fracture of femoral neck, left, closed Qualifiers: Encounter type: subsequent encounter Assessment/Plan: She is not rehabable due to cognitive impairment from dementia (3) COVID-19 virus detected Assessment/Plan: She has had up-and-down fevers every other day approximately. Her desaturations have improved and over the last 48 hours she has not needed supplemental oxygen or had many respiratory symptoms (4) Anemia Assessment/Plan: We will check B12, folate levels and iron stores and replace if low (5) Hypertension Assessment/Plan: Stable (6) Atrial flutter, paroxysmal Assessment/Plan: Stable (7) Hypokalemia Assessment/Plan: Resolved - Current Meds Current Meds: Current Medications Generic Name Dose Route Start Last Admin Trade Name Freq PRN Reason Stop Dose Admin Acetaminophen 650 mg 06/18/20 07:45 06/22/20 04:22 Tylenol PO 650 mg Q4HR PRN Administration Pain or Fever > 38C (100.4F) Aspirin 81 mg 06/12/20 21:00 06/22/20 08:58 Ecotrin PO 81 mg BID MOOSE Administration Bisacodyl 10 mg 06/12/20 15:39 06/14/20 22:23 Dulcolax Supp [place] 10 mg Q12H PRN Administration Constipation Calcium Citrate 250 mg 06/13/20 14:00 06/22/20 08:58 PO 250 mg BID MOOSE Administration Cholecalciferol 50 mcg 06/13/20 17:00 06/22/20 08:58 Vitamin D3 PO 50 mcg DAILY MOOSE Administration Docusate Sodium 250 - 500 mg 06/13/20 09:00 06/22/20 08:57 Colace 250mg Capsule PO Not Given DAILY MOOSE Ferrous Sulfate 325 mg 06/18/20 17:00 06/22/20 16:02 Feosol PO 325 mg BIDWM MOOSE Administration Sodium Chloride 1,000 mls @ 85 mls/hr 06/15/20 09:00 06/22/20 08:54 Normal Saline 0.9% IV 85 mls/hr .[id number] MOOSE Administration Lisinopril 20 mg 06/13/20 11:00 06/22/20 09:23 Zestril PO 20 mg BID MOOSE Administration Memantine 10 mg 06/13/20 21:00 06/22/20 08:58 Namenda PO 10 mg BID MOOSE Administration Metoprolol Tartrate 25 mg 06/11/20 22:00 06/22/20 09:23 Lopressor PO 25 mg BID MOOSE Administration Pantoprazole Sodium 40 mg 06/12/20 07:00 06/22/20 06:33 Protonix PO 40 mg QDAC MOOSE Administration Polyethylene Glycol 17 gm 06/13/20 09:00 06/22/20 08:57 Miralax PO 17 gm DAILY MOOSE Administration Quetiapine Fumarate 50 mg 06/19/20 21:00 06/21/20 21:01 Seroquel PO 50 mg QPM MOOSE Administration Quetiapine Fumarate 25 mg 06/19/20 10:00 06/22/20 08:58 Seroquel PO 25 mg DAILY MOOSE Administration Senna 8.6 - 17.2 mg 06/14/20 17:51 06/22/20 08:58 Senokot PO 8.6 mg BID MOOSE Administration Sodium Chloride 10 ml 06/11/20 21:23 06/15/20 05:24 Normal Saline Flush 0.9% IVP 10 ml PRN PRN Administration NEEDED PER PROVIDER ORDERS Sodium Chloride 10 ml 06/12/20 17:00 06/22/20 16:03 Normal Saline Flush 0.9% IVP Not Given 0100,0900,1700 MOOSE Tamsulosin HCl 0.4 mg 06/14/20 12:00 06/22/20 09:23 Flomax PO 0.4 mg DAILY MOOSE Administration - Lab Result Fish Bone Diagrams: 06/22/20 06:35 06/22/20 06:35 - Additional Planning My Orders: My Active Orders 06/22/20 Hospice Referral [CONS] Routine Subjective - Subjective Patient Reports: Resting Comfortably Objective Vital Signs: Vital Signs - 24 hr 06/21/20 06/21/20 06/21/20 17:00 20:49 21:02 Temperature 38.2 C H 37.4 C Heart Rate [ 78 Brachial] Respiratory Rate Blood Pressure 136/89 H Blood Pressure 139/89 H [Right Ankle] Blood Pressure [Right Brachial artery] O2 Saturation 06/22/20 06/22/20 06/22/20 00:54 08:55 09:23 Temperature 36.7 C 37.1 C Heart Rate [ 73 66 Brachial] Respiratory 18 20 Rate Blood Pressure 145/67 H Blood Pressure [Right Ankle] Blood Pressure 135/70 H 95/57 L [Right Brachial artery] O2 Saturation 95 95 06/22/20 16:03 Temperature 36.6 C Heart Rate [ 76 Brachial] Respiratory 24 Rate Blood Pressure Blood Pressure [Right Ankle] Blood Pressure 147/71 H [Right Brachial artery] O2 Saturation 95 Oxygen O2 Source Room air I&O (Last 24 Hrs): Intake and Output Totals x24h 06/20/20 06/21/20 06/22/20 23:59 23:59 23:59 Intake Total 2193.167 2165.5 1180 Output Total 3250 1650 1025 Balance -1056.833 515.5 155 General: No acute distress HEENT: Atraumatic Neck: Supple Neuro: Disoriented Cardiovascular: Regular rate Respiratory: No respiratory distress Abdomen: Soft Extremities: No edema - Results Results: Laboratory Results WBC 6.2 x10^3/uL (4.8-10.8) 06/22/20 06:35 RBC 2.50 10^6/uL (4.20-5.40) L 06/22/20 06:35 Hgb 7.6 g/dL (12.0-16.0) L 06/22/20 06:35 Hct 23.4 % (37.0-47.0) L 06/22/20 06:35 MCV 93.6 fL (81.0-99.0) 06/22/20 06:35 MCH 30.4 pg (27.0-31.0) 06/22/20 06:35 MCHC 32.5 g/dL (32.0-36.0) 06/22/20 06:35 RDW 14.9 % (12.0-15.0) 06/22/20 06:35 Plt Count 327 10^3/uL (130-450) 06/22/20 06:35 MPV 10.3 fL (7.9-10.8) 06/22/20 06:35 Reticulocyte % (Auto) 0.89 % (0.5-2.3) 06/18/20 05:05 Neut # (Auto) 4.6 10^3/uL (1.5-6.6) 06/22/20 06:35 Lymph # (Auto) 0.9 10^3/uL (1.5-3.5) L 06/22/20 06:35 [place] # (Auto) 0.6 10^3/uL (0.0-1.0) 06/22/20 06:35 Eos # (Auto) 0.1 10^3/uL (0.0-0.7) 06/22/20 06:35 Baso # (Auto) 0.0 10^3/uL (0.0-0.1) 06/22/20 06:35 Absolute Nucleated RBC 0.00 x10^3/uL 06/22/20 06:35 Nucleated RBC % 0.0 /100WBC 06/22/20 06:35 Absolute Retic 0.024 10^6/uL (0.020-0.110) 06/18/20 05:05 PT 13.0 secs (9.9-12.6) H 06/11/20 19:45 INR 1.2 (0.8-1.2) 06/11/20 19:45 Sodium 134 mmol/L (135-145) L 06/22/20 06:35 Potassium 3.5 mmol/L (3.5-5.0) 06/22/20 06:35 Chloride 107 mmol/L (101-111) 06/22/20 06:35 Carbon Dioxide 20 mmol/L (21-32) L 06/22/20 06:35 Anion Gap 7.0 (6-13) 06/22/20 06:35 BUN 10 mg/dL (6-20) 06/22/20 06:35 Creatinine 0.7 mg/dL (0.4-1.0) 06/22/20 06:35 Estimated GFR (MDRD) 80 (>89) L 06/22/20 06:35 Glucose 96 mg/dL (70-100) 06/22/20 06:35 Lactic Acid 1.4 mmol/L (0.5-2.2) 06/11/20 23:30 Calcium 7.4 mg/dL (8.5-10.3) L 06/22/20 06:35 Phosphorus 3.1 mg/dL (2.5-4.6) 06/15/20 06:50 Magnesium 1.9 mg/dL (1.7-2.8) 06/15/20 06:50 Iron < 6 ug/dL (28-170) L 06/18/20 05:05 TIBC 221 ug/dL (250-450) L 06/18/20 05:05 Transferrin 158 mg/dL (192-382) L 06/18/20 05:05 Ferritin 146.1 ng/mL (11.0-306.8) 06/18/20 05:05 Total Bilirubin 0.7 mg/dL (0.2-1.0) 06/11/20 19:45 AST 29 IU/L (10-42) 06/11/20 19:45 ALT 19 IU/L (10-60) 06/11/20 19:45 Alkaline Phosphatase 68 IU/L (42-121) 06/11/20 19:45 Lactate Dehydrogenase 191 IU/L (91-225) 06/18/20 05:05 Troponin I High Sens 10.5 ng/L (2.3-14.8) 06/11/20 19:45 Total Protein 7.8 g/dL (6.7-8.2) 06/11/20 19:45 Albumin 4.2 g/dL (3.2-5.5) 06/11/20 19:45 Globulin 3.6 g/dL (2.1-4.2) 06/11/20 19:45 Albumin/Globulin Ratio 1.2 (1.0-2.2) 06/11/20 19:45 Vitamin B12 2956 pg/mL (180-914) H 06/18/20 05:05 TSH 2.31 uIU/mL (0.34-5.60) 06/12/20 05:20 Urine Color YELLOW 06/18/20 10:30 Urine Clarity CLEAR (CLEAR) 06/18/20 10:30 Urine pH 7.0 PH (5.0-7.5) 06/18/20 10:30 Ur Specific [place] 1.015 (1.002-1.030) 06/18/20 10:30 Urine Protein NEGATIVE mg/dL (NEGATIVE) 06/18/20 10:30 Urine Glucose (UA) NEGATIVE mg/dL (NEGATIVE) 06/18/20 10:30 Urine Ketones NEGATIVE mg/dL (NEGATIVE) 06/18/20 10:30 Urine Occult Blood NEGATIVE (NEGATIVE) 06/18/20 10:30 Urine Nitrite NEGATIVE (NEGATIVE) 06/18/20 10:30 Urine Bilirubin NEGATIVE (NEGATIVE) 06/18/20 10:30 Urine Urobilinogen 0.2 (NORMAL) E.U./dL (NORMAL) 06/18/20 10:30 Ur Leukocyte Esterase NEGATIVE (NEGATIVE) 06/18/20 10:30 Urine RBC None Seen /HPF (0-5) 06/18/20 10:30 Urine WBC 0-3 /HPF (0-5) 06/18/20 10:30 Ur Squamous Epith Cells NONE SEEN (<= Few) 06/18/20 10:30 Urine Bacteria None Seen /HPF (None Seen) 06/18/20 10:30 Urine Culture Comments NOT INDICATED 06/18/20 10:30 Nasal Adenovirus (PCR) NOT DETECTED 06/17/20 12:15 Nasal B. parapertussis DNA (PCR) NOT DETECTED 06/17/20 12:15 Nasal Coronavir 229E PCR NOT DETECTED 06/17/20 12:15 Nasal Coronavir HKU1 PCR NOT DETECTED 06/17/20 12:15 Nasal Coronavir NL63 PCR NOT DETECTED 06/17/20 12:15 Nasal Coronavir OC43 PCR NOT DETECTED 06/17/20 12:15 Nasal Enterovir/Rhinovir PCR NOT DETECTED 06/17/20 12:15 Nasal Influenza B PCR NOT DETECTED 06/17/20 12:15 Nasal Influenza A PCR NOT DETECTED 06/17/20 12:15 Nasal Parainfluen 1 PCR NOT DETECTED 06/17/20 12:15 Nasal Parainfluen 2 PCR NOT DETECTED 06/17/20 12:15 Nasal Parainfluen 3 PCR NOT DETECTED 06/17/20 12:15 Nasal Parainfluen 4 PCR NOT DETECTED 06/17/20 12:15 Nasal RSV (PCR) NOT DETECTED 06/17/20 12:15 Nasal B.pertussis DNA PCR NOT DETECTED 06/17/20 12:15 Nasal C.pneumoniae (PCR) NOT DETECTED 06/17/20 12:15 [place] Human Metapneumo PCR NOT DETECTED 06/17/20 12:15 Nasal M.pneumoniae (PCR) NOT DETECTED 06/17/20 12:15 Nasal SARS-CoV-2 (PCR) DETECTED A 06/17/20 12:15 Sepsis Event Note (H) - Evaluation Current Stage of Sepsis: Ruled out
[2020-06-22] MEDS: QUEtiapine 100 MG TABLET PO SCH (21:23)
[2020-06-23] MEDS: SODIUM CHLORIDE FLUSH 0.9% 10 ML SYRINGE IVP SCH ×3 (00:26→17:17)
[2020-06-23] MEDS: PANTOPRAZOLE 40 MG TABLET PO SCH (05:39)
[2020-06-23] MEDS: CALCIUM CITRATE 250 MG TABLET PO SCH ×2 (08:53→21:37)
[2020-06-23] MEDS: FERROUS SULFATE 325 MG TABLET PO SCH ×2 (08:53→17:17)
[2020-06-23] MEDS: SODIUM CHLORIDE 0.9% 1,000 ML IV SCH ×2 (08:53→21:36)
[2020-06-23] MEDS: ACETAMINOPHEN 325 MG TABLET PO PRN (08:53)
[2020-06-23] MEDS: ASPIRIN EC 81 MG TABLET PO SCH ×2 (08:53→21:36)
[2020-06-23] MEDS: CHOLECALCIFEROL 25 MCG TABLET PO SCH (08:54)
[2020-06-23] MEDS: METOPROLOL TARTRATE 25 MG TABLET PO SCH ×2 (08:54→21:37)
[2020-06-23] MEDS: QUEtiapine 25 MG TABLET PO SCH (08:54)
[2020-06-23] MEDS: MEMANTINE 5 MG TABLET PO SCH ×2 (08:55→21:37)
[2020-06-23] MEDS: lisinopriL 20 MG TABLET PO SCH ×2 (08:56→21:37)
[2020-06-23] MEDS: TAMSULOSIN 0.4 MG CAPSULE PO SCH (08:56)
[2020-06-23] MEDS: polyethylene glycoL 3350 17 GM PACKET PO SCH (11:52)
[2020-06-23] MEDS: SENNA 8.6 MG TABLET PO SCH ×2 (11:52→21:36)
[2020-06-23] MEDS: DOCUSATE SODIUM 250 MG CAPSULE PO SCH (11:52)
--- NOTE | 2020-06-23 13:20 | Discharge Plan ---
Discharge Plan for SNF / [facility] - Discharge Plan And Transition Orders Problem Reviewed?: Yes Disposition: [facility] DC/Xfer Allergies and Adverse Reactions: Allergies Allergy/AdvReac Type Severity Reaction Status Date / Time No Known Drug Allergies Allergy Verified 06/11/20 19:53 Health Concerns: This patient has dementia and was admitted after a fall and diagnosed with a hip fracture. At admission she tested Covid positive. The family did consent to her having hip surgery, which was done and was successful. Following that, she had complications with fever and oxygen desaturation related to her Covid infection. Eventually the oxygen was weaned down to off. The patient was seen by Physical Therapy after the hip surgery and was unable to progress, or cooperate, and had behavioral problem. Her evaluation showed that the patient had such severe dementia that she was not "skillable" to attend PT rehab at a SNF. She will need half-way care, and will need passive ROM exercises to prevent contractures when she is in bed. Plan of Treatment: As above, upon return to [facility]. Care Goals: Improvement in symptoms and stabilization are the goals. Assessment: Written instructions are given discharge to the facility. - SNF / [facility] Transition Orders Admit to (Facility): [facility] Discharge Diagnosis: 1) Dementia with behavioral disturbance 2) COVID infection 3) Fall at [place] 4) Fracture of left femoral neck, closed 5) S/P successful Hip surgery 6) Anemia 7) Hypertension 8) Atrial flutter, paroxysmal 9) Hypokalemia 10) Failure to thrive 11) Code status: DNR Medicare Certification Statement: I certify that Post Hospital care home care is medically necessary on a continuing basis for any of the conditions for which she/he is receiving care during hospitalization. Notify PCP of admission and forward orders to primary provider for signature. Other Notification Orders: Call PCP immediately if patient develops dyspnea, chest pain/tightness or edema. House Bowel Program: Yes Additional Bowel Program Orders: If no BM after 2 days, nurse may give M.O.M. 30ml PO PRN and/or ducolax Supp 1 [place] and/or PIPPA 250mg P.O., and/or senna 1-2 tabs PO. On day 3 nurse may give repeat above order until residents constipation is resolved. Annual Influenza Vaccine (between Apr 01 and October 29): Yes Two-step PPD per [facility] [phone] or approved exception documents: Yes Medication Orders: PLEASE REFER TO THE DISCHARGE MEDICATION LIST. Insulin Orders?: No - Medications New Prescriptions: Calcium Citrate 250 mg PO BID #60 tablet Aspirin EC [Ecotrin] 81 mg PO BID 14 Days #28 tablet Ferrous Sulfate [Feosol] 325 mg PO BIDWM #60 tablet Tamsulosin [Flomax] 0.4 mg PO DAILY #30 capsule Metoprolol Tartrate [Lopressor] 25 mg PO BID #60 tablet Cholecalciferol [Vitamin D3] 50 mcg PO DAILY #30 tablet - Diet Type: Geriatric Texture: Puree Liquids: [employer] thick May have monthly special meal: Yes - Therapies | Activity Activity: Activity as Tolerated Follow Up: Patient to be accepted by [facility] on 06/[facility]20.
[2020-06-23] MEDS: QUEtiapine 100 MG TABLET PO SCH (21:37)
[2020-06-24] MEDS: ACETAMINOPHEN 325 MG TABLET PO PRN (01:35)
[2020-06-24] MEDS: SODIUM CHLORIDE FLUSH 0.9% 10 ML SYRINGE IVP SCH ×4 (01:36→23:44)
[2020-06-24] MEDS: PANTOPRAZOLE 40 MG TABLET PO SCH (06:25)
[2020-06-24] MEDS ORDERED: hydrALAZINE INJ 20 MG/ML VIAL IVP PRN (07:49)
[2020-06-24] MEDS: MEMANTINE 5 MG TABLET PO SCH ×2 (08:30→19:57)
[2020-06-24] MEDS: CHOLECALCIFEROL 25 MCG TABLET PO SCH (08:30)
[2020-06-24] MEDS: TAMSULOSIN 0.4 MG CAPSULE PO SCH (08:31)
[2020-06-24] MEDS: QUEtiapine 25 MG TABLET PO SCH (08:31)
[2020-06-24] MEDS: ASPIRIN EC 81 MG TABLET PO SCH ×2 (08:31→19:58)
[2020-06-24] MEDS: CALCIUM CITRATE 250 MG TABLET PO SCH ×2 (08:32→19:58)
[2020-06-24] MEDS: FERROUS SULFATE 325 MG TABLET PO SCH ×2 (08:32→17:44)
[2020-06-24] MEDS: lisinopriL 20 MG TABLET PO SCH ×2 (08:34→19:59)
[2020-06-24] MEDS: amLODIPine 5 MG TABLET PO SCH ×2 (08:34→10:32)
[2020-06-24] MEDS: METOPROLOL TARTRATE 25 MG TABLET PO SCH ×2 (08:34→19:58)
[2020-06-24 10:02] LABS: BASOPHILS % (AUTO) 0.3 %; EOSINOPHILS % (AUTO) 1.1 %; HGB - HEMOGLOBIN 9.1 g/dL (12.0-16.0); LYMPHOCYTES % (AUTO) 9.5 %; MEAN CORPUSCULAR HEMOGLOBIN 31.9 pg (27.0-31.0); MEAN CORPUSCULAR HGB CONC 33.7 g/dL (32.0-36.0); MEAN CORPUSCULAR VOLUME 94.7 fL (81.0-99.0); MONOCYTES % (AUTO) 9.1 %; NEUTROPHILS % (AUTO) 79.2 %; PLT - PLATELET COUNT 359 10^3/uL (130-450); RED BLOOD COUNT 2.85 10^6/uL (4.20-5.40); RED CELL DISTRIBUTION WIDTH 14.9 % (12.0-15.0)
[2020-06-24 10:11] LABS: ABNORMAL LYMPHS % (MANUAL) 0 %; BAND NEUTROPHILS % (MANUAL) 0 %
[2020-06-24 10:15] LABS: CALCIUM 7.9 mg/dL (8.5-10.3); CREATININE 0.6 mg/dL (0.4-1.0)
[2020-06-24] MEDS: SODIUM CHLORIDE 0.9% 1,000 ML IV SCH ×2 (10:31→19:55)
[2020-06-24 10:32] LABS: DIFFERENTIAL COMMENT MANUAL DIFFERENTIAL; EOSINOPHILS # (MANUAL) 0.1 10^3/uL (0-0.7); LYMPHOCYTES # (MANUAL) 0.9 10^3/uL (1.5-3.5); LYMPHOCYTES % (MANUAL) 9 %; MONOCYTES # (MANUAL) 0.9 10^3/uL (0.0-1.0); PLATELET ESTIMATE, MANUAL NORMAL (130-450,000) (NORMAL); PLATELET MORPHOLOGY NORMAL APPEARANCE (NORMAL); RBC MORPHOLOGY (MULTIPLE) 1+ HYPOCHROMASIA (NORMAL)
[2020-06-24] MEDS: DOCUSATE SODIUM 250 MG CAPSULE PO SCH (10:32)
[2020-06-24] MEDS: polyethylene glycoL 3350 17 GM PACKET PO SCH (10:32)
[2020-06-24] MEDS: SENNA 8.6 MG TABLET PO SCH ×2 (10:32→19:59)
--- NOTE | 2020-06-24 11:11 | PROVIDER PROGRESS NOTE ---
Assessment/Plan - Problem List (1) Dementia Qualifiers: Dementia behavioral disturbance: with behavioral disturbance Assessment/Plan: Unchanged; weak, poor po intake, refusing care intermittently. I saw the pt take a swing at PT several days ago. It was determine she is not "skillable" due to her level of dementia. The manager social services spoke to the son, he requested a hospice referral several days ago, it was ordered. SW was in contact with [facility] and they can open her case on 06/25. Her [facility] facility stated they can take her back today, then later told SW they can take her back on the day that Hospice opens her case, not earlier. [facility] has Covid positive patients and they are able to take her back, covid positive. (2) Fracture of femoral neck, left, closed Qualifiers: Encounter type: subsequent encounter Assessment/Plan: She is not rehabable due to cognitive impairment from dementia. PT recommended passive ROM exercises when she is in bed to prevent contractures. (3) COVID-19 virus detected Assessment/Plan: She has had up-and-down fevers every other day approximately. Her desaturations have improved and over the last several days she has not needed supplemental oxygen or had many respiratory symptoms (4) Anemia Assessment/Plan: We will check B12, folate levels and iron stores and replace if low (5) Hypertension Assessment/Plan: Stable (6) Atrial flutter, paroxysmal Assessment/Plan: Stable (7) Hypokalemia Assessment/Plan: Resolved with replacement - Current Meds Current Meds: Current Medications Generic Name Dose Route Start Last Admin Trade Name Freq PRN Reason Stop Dose Admin Acetaminophen 650 mg 06/18/20 07:45 06/24/20 01:35 Tylenol PO 650 mg Q4HR PRN Administration Pain or Fever > 38C (100.4F) Amlodipine Besylate 5 mg 06/24/20 07:49 06/24/20 10:32 Norvasc PO 5 mg DAILY MOOSE Administration Aspirin 81 mg 06/12/20 21:00 06/24/20 08:31 Ecotrin PO 81 mg BID MOOSE Administration Bisacodyl 10 mg 06/12/20 15:39 06/14/20 22:23 Dulcolax Supp [place] 10 mg Q12H PRN Administration Constipation Calcium Citrate 250 mg 06/13/20 14:00 06/24/20 08:32 PO 250 mg BID MOOSE Administration Cholecalciferol 50 mcg 06/13/20 17:00 06/24/20 08:30 Vitamin D3 PO 50 mcg DAILY MOOSE Administration Docusate Sodium 250 - 500 mg 06/13/20 09:00 06/24/20 10:32 Colace 250mg Capsule PO Not Given DAILY MOOSE Ferrous Sulfate 325 mg 06/18/20 17:00 06/24/20 08:32 Feosol PO 325 mg BIDWM MOOSE Administration Sodium Chloride 1,000 mls @ 85 mls/hr 06/15/20 09:00 06/24/20 10:31 Normal Saline 0.9% IV 85 mls/hr .[id number] MOOSE Administration Lisinopril 20 mg 06/13/20 11:00 06/24/20 08:34 Zestril PO 20 mg BID MOOSE Administration Memantine 10 mg 06/13/20 21:00 06/24/20 08:30 Namenda PO 10 mg BID MOOSE Administration Metoprolol Tartrate 25 mg 06/11/20 22:00 06/24/20 08:34 Lopressor PO 25 mg BID MOOSE Administration Pantoprazole Sodium 40 mg 06/12/20 07:00 06/24/20 06:25 Protonix PO 40 mg QDAC MOOSE Administration Polyethylene Glycol 17 gm 06/13/20 09:00 06/24/20 10:32 Miralax PO Not Given DAILY MOOSE Quetiapine Fumarate 50 mg 06/19/20 21:00 06/23/20 21:37 Seroquel PO 50 mg QPM MOOSE Administration Quetiapine Fumarate 25 mg 06/19/20 10:00 06/24/20 08:31 Seroquel PO 25 mg DAILY MOOSE Administration Senna 8.6 - 17.2 mg 06/14/20 17:51 06/24/20 10:32 Senokot PO Not Given BID MOOSE Sodium Chloride 10 ml 06/11/20 21:23 06/15/20 05:24 Normal Saline Flush 0.9% IVP 10 ml PRN PRN Administration NEEDED PER PROVIDER ORDERS Sodium Chloride 10 ml 06/12/20 17:00 06/24/20 10:32 Normal Saline Flush 0.9% IVP Not Given 0100,0900,1700 [facility] Tamsulosin HCl 0.4 mg 06/14/20 12:00 06/24/20 08:31 Flomax PO 0.4 mg DAILY MOOSE Administration - Lab Result Fish Bone Diagrams: 06/24/20 09:50 06/24/20 09:50 Subjective - Subjective Patient Reports: Resting Comfortably Objective Vital Signs: Vital Signs - 24 hr 06/23/20 06/23/20 06/23/20 17:55 21:31 21:37 Temperature 37.3 C Heart Rate [ 71 89 Brachial] Respiratory 20 Rate Blood Pressure 190/87 H Blood Pressure 177/117 H [Left Brachial artery] Blood Pressure [Right Ankle] Blood Pressure 134/74 H 175/104 H [Right Brachial artery] O2 Saturation 98 06/24/20 06/24/20 06/24/20 01:20 02:45 05:59 Temperature 36.5 C Heart Rate [ 75 72 62 Brachial] Respiratory 17 Rate Blood Pressure Blood Pressure [Left Brachial artery] Blood Pressure 183/96 H 183/80 H [Right Ankle] Blood Pressure 174/87 H [Right Brachial artery] O2 Saturation 96 93 06/24/20 06/24/20 08:34 08:52 Temperature 36.9 C Heart Rate [ 67 Brachial] Respiratory 16 Rate Blood Pressure 169/82 H Blood Pressure [Left Brachial artery] Blood Pressure [Right Ankle] Blood Pressure 169/82 H [Right Brachial artery] O2 Saturation 96 Oxygen O2 Source Room air I&O (Last 24 Hrs): Intake and Output Totals x24h 06/22/20 06/23/20 06/24/20 23:59 23:59 23:59 Intake Total 2420 1996.75 986.5 Output Total 1550 3650 1500 Balance 870 -1653.25 -513.5 General: Alert Cardiovascular: Regular rate Respiratory: No respiratory distress Extremities: No edema - Results Results: Laboratory Results WBC 9.0 x10^3/uL (4.8-10.8) 06/24/20 09:50 RBC 2.85 10^6/uL (4.20-5.40) L 06/24/20 09:50 Hgb 9.1 g/dL (12.0-16.0) L 06/24/20 09:50 Hct 27.0 % (37.0-47.0) L 06/24/20 09:50 MCV 94.7 fL (81.0-99.0) 06/24/20 09:50 MCH 31.9 pg (27.0-31.0) H 06/24/20 09:50 MCHC 33.7 g/dL (32.0-36.0) 06/24/20 09:50 RDW 14.9 % (12.0-15.0) 06/24/20 09:50 Plt Count 359 10^3/uL (130-450) 06/24/20 09:50 MPV 11.0 fL (7.9-10.8) H 06/24/20 09:50 Reticulocyte % (Auto) 0.89 % (0.5-2.3) 06/18/20 05:05 Neut # (Auto) Not Reportable 06/24/20 09:50 Lymph # (Auto) Not Reportable 06/24/20 09:50 [place] # (Auto) Not Reportable 06/24/20 09:50 Eos # (Auto) Not Reportable 06/24/20 09:50 Baso # (Auto) Not Reportable 06/24/20 09:50 Absolute Nucleated RBC Not Reportable 06/24/20 09:50 Total Counted 100 06/24/20 09:50 Band Neuts % (Manual) 0 % (0-10) 06/24/20 09:50 Reactive Lymphs % (Man) 1 % 06/24/20 09:50 Abnorm Lymph % (Manual) 0 % 06/24/20 09:50 Nucleated RBC % Not Reportable 06/24/20 09:50 Neutrophils # (Manual) 7.1 10^3/uL (1.5-6.6) H 06/24/20 09:50 Lymphocytes # (Manual) 0.9 10^3/uL (1.5-3.5) L 06/24/20 09:50 Monocytes # (Manual) 0.9 10^3/uL (0.0-1.0) 06/24/20 09:50 Eosinophils # (Manual) 0.1 10^3/uL (0-0.7) 06/24/20 09:50 Basophils # (Manual) 0.0 10^3/uL (0-0.1) 06/24/20 09:50 Differential Comment MANUAL DIFFERENTIAL 06/24/20 09:50 Platelet Estimate NORMAL (130-450,000) (NORMAL) 06/24/20 09:50 Platelet Morphology NORMAL APPEARANCE (NORMAL) 06/24/20 09:50 RBC Morph Micro Appear 1+ HYPOCHROMASIA (NORMAL) 06/24/20 09:50 Absolute Retic 0.024 10^6/uL (0.020-0.110) 06/18/20 05:05 PT 13.0 secs (9.9-12.6) H 06/11/20 19:45 INR 1.2 (0.8-1.2) 06/11/20 19:45 Sodium 138 mmol/L (135-145) 06/24/20 09:50 Potassium 3.0 mmol/L (3.5-5.0) L 06/24/20 09:50 Chloride 105 mmol/L (101-111) 06/24/20 09:50 Carbon Dioxide 21 mmol/L (21-32) 06/24/20 09:50 Anion Gap 12.0 (6-13) 06/24/20 09:50 BUN 8 mg/dL (6-20) 06/24/20 09:50 Creatinine 0.6 mg/dL (0.4-1.0) 06/24/20 09:50 Estimated GFR (MDRD) 96 (>89) 06/24/20 09:50 Glucose 112 mg/dL (70-100) H 06/24/20 09:50 Lactic Acid 1.4 mmol/L (0.5-2.2) 06/11/20 23:30 Calcium 7.9 mg/dL (8.5-10.3) L 06/24/20 09:50 Phosphorus 3.1 mg/dL (2.5-4.6) 06/15/20 06:50 Magnesium 1.9 mg/dL (1.7-2.8) 06/15/20 06:50 Iron < 6 ug/dL (28-170) L 06/18/20 05:05 TIBC 221 ug/dL (250-450) L 06/18/20 05:05 Transferrin 158 mg/dL (192-382) L 06/18/20 05:05 Ferritin 146.1 ng/mL (11.0-306.8) 06/18/20 05:05 Total Bilirubin 0.7 mg/dL (0.2-1.0) 06/11/20 19:45 AST 29 IU/L (10-42) 06/11/20 19:45 ALT 19 IU/L (10-60) 06/11/20 19:45 Alkaline Phosphatase 68 IU/L (42-121) 06/11/20 19:45 Lactate Dehydrogenase 191 IU/L (91-225) 06/18/20 05:05 Troponin I High Sens 10.5 ng/L (2.3-14.8) 06/11/20 19:45 Total Protein 7.8 g/dL (6.7-8.2) 06/11/20 19:45 Albumin 4.2 g/dL (3.2-5.5) 06/11/20 19:45 Globulin 3.6 g/dL (2.1-4.2) 06/11/20 19:45 Albumin/Globulin Ratio 1.2 (1.0-2.2) 06/11/20 19:45 Vitamin B12 2956 pg/mL (180-914) H 06/18/20 05:05 TSH 2.31 uIU/mL (0.34-5.60) 06/12/20 05:20 Urine Color YELLOW 06/18/20 10:30 Urine Clarity CLEAR (CLEAR) 06/18/20 10:30 Urine pH 7.0 PH (5.0-7.5) 06/18/20 10:30 Ur Specific [place] 1.015 (1.002-1.030) 06/18/20 10:30 Urine Protein NEGATIVE mg/dL (NEGATIVE) 06/18/20 10:30 Urine Glucose (UA) NEGATIVE mg/dL (NEGATIVE) 06/18/20 10:30 Urine Ketones NEGATIVE mg/dL (NEGATIVE) 06/18/20 10:30 Urine Occult Blood NEGATIVE (NEGATIVE) 06/18/20 10:30 Urine Nitrite NEGATIVE (NEGATIVE) 06/18/20 10:30 Urine Bilirubin NEGATIVE (NEGATIVE) 06/18/20 10:30 Urine Urobilinogen 0.2 (NORMAL) E.U./dL (NORMAL) 06/18/20 10:30 Ur Leukocyte Esterase NEGATIVE (NEGATIVE) 06/18/20 10:30 Urine RBC None Seen /HPF (0-5) 06/18/20 10:30 Urine WBC 0-3 /HPF (0-5) 06/18/20 10:30 Ur Squamous Epith Cells NONE SEEN (<= Few) 06/18/20 10:30 Urine Bacteria None Seen /HPF (None Seen) 06/18/20 10:30 Urine Culture Comments NOT INDICATED 06/18/20 10:30 Nasal Adenovirus (PCR) NOT DETECTED 06/17/20 12:15 Nasal B. parapertussis DNA (PCR) NOT DETECTED 06/17/20 12:15 Nasal Coronavir 229E PCR NOT DETECTED 06/17/20 12:15 Nasal Coronavir HKU1 PCR NOT DETECTED 06/17/20 12:15 Nasal Coronavir NL63 PCR NOT DETECTED 06/17/20 12:15 Nasal Coronavir OC43 PCR NOT DETECTED 06/17/20 12:15 Nasal Enterovir/Rhinovir PCR NOT DETECTED 06/17/20 12:15 Nasal Influenza B PCR NOT DETECTED 06/17/20 12:15 Nasal Influenza A PCR NOT DETECTED 06/17/20 12:15 Nasal Parainfluen 1 PCR NOT DETECTED 06/17/20 12:15 Nasal Parainfluen 2 PCR NOT DETECTED 06/17/20 12:15 Nasal Parainfluen 3 PCR NOT DETECTED 06/17/20 12:15 Nasal Parainfluen 4 PCR NOT DETECTED 06/17/20 12:15 Nasal RSV (PCR) NOT DETECTED 06/17/20 12:15 Nasal B.pertussis DNA PCR NOT DETECTED 06/17/20 12:15 Nasal C.pneumoniae (PCR) NOT DETECTED 06/17/20 12:15 Farooq Human Metapneumo PCR NOT DETECTED 06/17/20 12:15 Nasal M.pneumoniae (PCR) NOT DETECTED 06/17/20 12:15 Nasal SARS-CoV-2 (PCR) DETECTED A 06/17/20 12:15 Sepsis Event Note (H) - Evaluation Current Stage of Sepsis: Ruled out
--- NOTE | 2020-06-24 15:33 | PROVIDER PROGRESS NOTE ---
Assessment/Plan - Problem List (1) Advanced dementia Assessment/Plan: 1124, patient hx of advanced dementia, and has been very confused in hospital, reject PT/OT treatment, per plan, and family request, pt plan to be d/c on tomorrow with hospice care on [facility]. (2) Fracture of femoral neck, left, closed PT/OT evaluated She is not rehabable due to cognitive impairment from dementia. PT recommended passive ROM exercises when she is in bed to prevent contractures. (3) COVID-19 virus detected She has three days no fever, but very poor appetite, O2 sat is stable now. she has had up-and-down fevers every other day approximately before. (4) Anemia stable (5) Hypertension Assessment/Plan: Stable (6) Atrial flutter, paroxysmal Assessment/Plan: Stable (7) Hypokalemia Assessment/Plan: Resolved with replacement - Current Meds Current Meds: Current Medications Generic Name Dose Route Start Last Admin Trade Name Freq PRN Reason Stop Dose Admin Acetaminophen 650 mg 06/18/20 07:45 06/24/20 01:35 Tylenol PO 650 mg Q4HR PRN Administration Pain or Fever > 38C (100.4F) Amlodipine Besylate 5 mg 06/24/20 07:49 06/24/20 10:32 Norvasc PO 5 mg DAILY MOOSE Administration Aspirin 81 mg 06/12/20 21:00 06/24/20 08:31 Ecotrin PO 81 mg BID MOOSE Administration Bisacodyl 10 mg 06/12/20 15:39 06/14/20 22:23 Dulcolax Supp [place] 10 mg Q12H PRN Administration Constipation Calcium Citrate 250 mg 06/13/20 14:00 06/24/20 08:32 PO 250 mg BID MOOSE Administration Cholecalciferol 50 mcg 06/13/20 17:00 06/24/20 08:30 Vitamin D3 PO 50 mcg DAILY MOOSE Administration Docusate Sodium 250 - 500 mg 06/13/20 09:00 06/24/20 10:32 Colace 250mg Capsule PO Not Given DAILY MOOSE Ferrous Sulfate 325 mg 06/18/20 17:00 06/24/20 08:32 Feosol PO 325 mg BIDWM MOOSE Administration Sodium Chloride 1,000 mls @ 85 mls/hr 06/15/20 09:00 06/24/20 10:31 Normal Saline 0.9% IV 85 mls/hr .[id number] MOOSE Administration Lisinopril 20 mg 06/13/20 11:00 06/24/20 08:34 Zestril PO 20 mg BID MOOSE Administration Memantine 10 mg 06/13/20 21:00 06/24/20 08:30 Namenda PO 10 mg BID MOOSE Administration Metoprolol Tartrate 25 mg 06/11/20 22:00 06/24/20 08:34 Lopressor PO 25 mg BID MOOSE Administration Pantoprazole Sodium 40 mg 06/12/20 07:00 06/24/20 06:25 Protonix PO 40 mg QDAC MOOSE Administration Polyethylene Glycol 17 gm 06/13/20 09:00 06/24/20 10:32 Miralax PO Not Given DAILY MOOSE Quetiapine Fumarate 50 mg 06/19/20 21:00 06/23/20 21:37 Seroquel PO 50 mg QPM MOOSE Administration Quetiapine Fumarate 25 mg 06/19/20 10:00 06/24/20 08:31 Seroquel PO 25 mg DAILY MOOSE Administration Senna 8.6 - 17.2 mg 06/14/20 17:51 06/24/20 10:32 Senokot PO Not Given BID MOOSE Sodium Chloride 10 ml 06/11/20 21:23 06/15/20 05:24 Normal Saline Flush 0.9% IVP 10 ml PRN PRN Administration NEEDED PER PROVIDER ORDERS Sodium Chloride 10 ml 06/12/20 17:00 06/24/20 10:32 Normal Saline Flush 0.9% IVP Not Given 0100,0900,1700 [facility] Tamsulosin HCl 0.4 mg 06/14/20 12:00 06/24/20 08:31 Flomax PO 0.4 mg DAILY MOOSE Administration - Lab Result Fish Bone Diagrams: 06/24/20 09:50 06/24/20 09:50 - Additional Planning My Orders: My Active Orders 06/24/20 07:49 amLODIPine [Norvasc] 5 mg PO DAILY hydrALAZINE INJ [Apresoline Inj] 10 mg IVP Q4H PRN 06/25/20 05:00 BMP - BASIC METABOLIC PANEL [CHEM] DAILYLAB CBC - COMP BLD CT W/AUTO DIFF [HEME] DAILYLAB 06/26/20 05:00 BMP - BASIC METABOLIC PANEL [CHEM] DAILYLAB CBC - COMP BLD CT W/AUTO DIFF [HEME] DAILYLAB 06/27/20 05:00 BMP - BASIC METABOLIC PANEL [CHEM] DAILYLAB CBC - COMP BLD CT W/AUTO DIFF [HEME] DAILYLAB 06/28/20 05:00 BMP - BASIC METABOLIC PANEL [CHEM] DAILYLAB CBC - COMP BLD CT W/AUTO DIFF [HEME] DAILYLAB 06/29/20 05:00 BMP - BASIC METABOLIC PANEL [CHEM] DAILYLAB CBC - COMP BLD CT W/AUTO DIFF [HEME] DAILYLAB 06/30/20 05:00 BMP - BASIC METABOLIC PANEL [CHEM] DAILYLAB CBC - COMP BLD CT W/AUTO DIFF [HEME] DAILYLAB Subjective - Subjective Nursing Reports: Confused Objective Vital Signs: Vital Signs - 24 hr 06/23/20 06/23/20 06/23/20 17:55 21:31 21:37 Temperature 37.3 C Heart Rate [ 71 89 Brachial] Respiratory 20 Rate Blood Pressure 190/87 H Blood Pressure 177/117 H [Left Brachial artery] Blood Pressure [Right Ankle] Blood Pressure 134/74 H 175/104 H [Right Brachial artery] O2 Saturation 98 06/24/20 06/24/20 06/24/20 01:20 02:45 05:59 Temperature 36.5 C Heart Rate [ 75 72 62 Brachial] Respiratory 17 Rate Blood Pressure Blood Pressure [Left Brachial artery] Blood Pressure 183/96 H 183/80 H [Right Ankle] Blood Pressure 174/87 H [Right Brachial artery] O2 Saturation 96 93 06/24/20 06/24/20 08:34 08:52 Temperature 36.9 C Heart Rate [ 67 Brachial] Respiratory 16 Rate Blood Pressure 169/82 H Blood Pressure [Left Brachial artery] Blood Pressure [Right Ankle] Blood Pressure 169/82 H [Right Brachial artery] O2 Saturation 96 Oxygen O2 Source Room air I&O (Last 24 Hrs): Intake and Output Totals x24h 06/22/20 06/23/20 06/24/20 23:59 23:59 23:59 Intake Total 2420 1996.75 1096.5 Output Total 1550 3650 2350 Balance 870 -1653.25 -1253.5 General: Alert, No acute distress HEENT: Atraumatic Neck: Supple Lymphatic: no adenopathy Neuro: Alert, Non Focal Cardiovascular: Regular rate, Normal S1, Normal S2 Respiratory: Chest non-tender, No respiratory distress Abdomen: Normal bowel sounds, Soft Extremities: Normal pulses - Results Results: Laboratory Results WBC 9.0 x10^3/uL (4.8-10.8) 06/24/20 09:50 RBC 2.85 10^6/uL (4.20-5.40) L 06/24/20 09:50 Hgb 9.1 g/dL (12.0-16.0) L 06/24/20 09:50 Hct 27.0 % (37.0-47.0) L 06/24/20 09:50 MCV 94.7 fL (81.0-99.0) 06/24/20 09:50 MCH 31.9 pg (27.0-31.0) H 06/24/20 09:50 MCHC 33.7 g/dL (32.0-36.0) 06/24/20 09:50 RDW 14.9 % (12.0-15.0) 06/24/20 09:50 Plt Count 359 10^3/uL (130-450) 06/24/20 09:50 MPV 11.0 fL (7.9-10.8) H 06/24/20 09:50 Reticulocyte % (Auto) 0.89 % (0.5-2.3) 06/18/20 05:05 Neut # (Auto) Not Reportable 06/24/20 09:50 Lymph # (Auto) Not Reportable 06/24/20 09:50 [place] # (Auto) Not Reportable 06/24/20 09:50 Eos # (Auto) Not Reportable 06/24/20 09:50 Baso # (Auto) Not Reportable 06/24/20 09:50 Absolute Nucleated RBC Not Reportable 06/24/20 09:50 Total Counted 100 06/24/20 09:50 Band Neuts % (Manual) 0 % (0-10) 06/24/20 09:50 Reactive Lymphs % (Man) 1 % 06/24/20 09:50 Abnorm Lymph % (Manual) 0 % 06/24/20 09:50 Nucleated RBC % Not Reportable 06/24/20 09:50 Neutrophils # (Manual) 7.1 10^3/uL (1.5-6.6) H 06/24/20 09:50 Lymphocytes # (Manual) 0.9 10^3/uL (1.5-3.5) L 06/24/20 09:50 Monocytes # (Manual) 0.9 10^3/uL (0.0-1.0) 06/24/20 09:50 Eosinophils # (Manual) 0.1 10^3/uL (0-0.7) 06/24/20 09:50 Basophils # (Manual) 0.0 10^3/uL (0-0.1) 06/24/20 09:50 Differential Comment MANUAL DIFFERENTIAL 06/24/20 09:50 Platelet Estimate NORMAL (130-450,000) (NORMAL) 06/24/20 09:50 Platelet Morphology NORMAL APPEARANCE (NORMAL) 06/24/20 09:50 RBC Morph Micro Appear 1+ HYPOCHROMASIA (NORMAL) 06/24/20 09:50 Absolute Retic 0.024 10^6/uL (0.020-0.110) 06/18/20 05:05 PT 13.0 secs (9.9-12.6) H 06/11/20 19:45 INR 1.2 (0.8-1.2) 06/11/20 19:45 Sodium 138 mmol/L (135-145) 06/24/20 09:50 Potassium 3.0 mmol/L (3.5-5.0) L 06/24/20 09:50 Chloride 105 mmol/L (101-111) 06/24/20 09:50 Carbon Dioxide 21 mmol/L (21-32) 06/24/20 09:50 Anion Gap 12.0 (6-13) 06/24/20 09:50 BUN 8 mg/dL (6-20) 06/24/20 09:50 Creatinine 0.6 mg/dL (0.4-1.0) 06/24/20 09:50 Estimated GFR (MDRD) 96 (>89) 06/24/20 09:50 Glucose 112 mg/dL (70-100) H 06/24/20 09:50 Lactic Acid 1.4 mmol/L (0.5-2.2) 06/11/20 23:30 Calcium 7.9 mg/dL (8.5-10.3) L 06/24/20 09:50 Phosphorus 3.1 mg/dL (2.5-4.6) 06/15/20 06:50 Magnesium 1.9 mg/dL (1.7-2.8) 06/15/20 06:50 Iron < 6 ug/dL (28-170) L 06/18/20 05:05 TIBC 221 ug/dL (250-450) L 06/18/20 05:05 Transferrin 158 mg/dL (192-382) L 06/18/20 05:05 Ferritin 146.1 ng/mL (11.0-306.8) 06/18/20 05:05 Total Bilirubin 0.7 mg/dL (0.2-1.0) 06/11/20 19:45 AST 29 IU/L (10-42) 06/11/20 19:45 ALT 19 IU/L (10-60) 06/11/20 19:45 Alkaline Phosphatase 68 IU/L (42-121) 06/11/20 19:45 Lactate Dehydrogenase 191 IU/L (91-225) 06/18/20 05:05 Troponin I High Sens 10.5 ng/L (2.3-14.8) 06/11/20 19:45 Total Protein 7.8 g/dL (6.7-8.2) 06/11/20 19:45 Albumin 4.2 g/dL (3.2-5.5) 06/11/20 19:45 Globulin 3.6 g/dL (2.1-4.2) 06/11/20 19:45 Albumin/Globulin Ratio 1.2 (1.0-2.2) 06/11/20 19:45 Vitamin B12 2956 pg/mL (180-914) H 06/18/20 05:05 TSH 2.31 uIU/mL (0.34-5.60) 06/12/20 05:20 Urine Color YELLOW 06/18/20 10:30 Urine Clarity CLEAR (CLEAR) 06/18/20 10:30 Urine pH 7.0 PH (5.0-7.5) 06/18/20 10:30 Ur Specific [place] 1.015 (1.002-1.030) 06/18/20 10:30 Urine Protein NEGATIVE mg/dL (NEGATIVE) 06/18/20 10:30 Urine Glucose (UA) NEGATIVE mg/dL (NEGATIVE) 06/18/20 10:30 Urine Ketones NEGATIVE mg/dL (NEGATIVE) 06/18/20 10:30 Urine Occult Blood NEGATIVE (NEGATIVE) 06/18/20 10:30 Urine Nitrite NEGATIVE (NEGATIVE) 06/18/20 10:30 Urine Bilirubin NEGATIVE (NEGATIVE) 06/18/20 10:30 Urine Urobilinogen 0.2 (NORMAL) E.U./dL (NORMAL) 06/18/20 10:30 Ur Leukocyte Esterase NEGATIVE (NEGATIVE) 06/18/20 10:30 Urine RBC None Seen /HPF (0-5) 06/18/20 10:30 Urine WBC 0-3 /HPF (0-5) 06/18/20 10:30 Ur Squamous Epith Cells NONE SEEN (<= Few) 06/18/20 10:30 Urine Bacteria None Seen /HPF (None Seen) 06/18/20 10:30 Urine Culture Comments NOT INDICATED 06/18/20 10:30 Nasal Adenovirus (PCR) NOT DETECTED 06/17/20 12:15 Nasal B. parapertussis DNA (PCR) NOT DETECTED 06/17/20 12:15 Nasal Coronavir 229E PCR NOT DETECTED 06/17/20 12:15 Nasal Coronavir HKU1 PCR NOT DETECTED 06/17/20 12:15 Nasal Coronavir NL63 PCR NOT DETECTED 06/17/20 12:15 Nasal Coronavir OC43 PCR NOT DETECTED 06/17/20 12:15 Nasal Enterovir/Rhinovir PCR NOT DETECTED 06/17/20 12:15 Nasal Influenza B PCR NOT DETECTED 06/17/20 12:15 Nasal Influenza A PCR NOT DETECTED 06/17/20 12:15 Nasal Parainfluen 1 PCR NOT DETECTED 06/17/20 12:15 Nasal Parainfluen 2 PCR NOT DETECTED 06/17/20 12:15 Nasal Parainfluen 3 PCR NOT DETECTED 06/17/20 12:15 Nasal Parainfluen 4 PCR NOT DETECTED 06/17/20 12:15 Nasal RSV (PCR) NOT DETECTED 06/17/20 12:15 Nasal B.pertussis DNA PCR NOT DETECTED 06/17/20 12:15 Nasal C.pneumoniae (PCR) NOT DETECTED 06/17/20 12:15 Farooq Human Metapneumo PCR NOT DETECTED 06/17/20 12:15 Nasal M.pneumoniae (PCR) NOT DETECTED 06/17/20 12:15 Nasal SARS-CoV-2 (PCR) DETECTED A 06/17/20 12:15 Sepsis Event Note (H) - Evaluation Current Stage of Sepsis: Ruled out ABX Reporting Has patient been on IV antibiotics over the past 48 hours?: No Current Medications - Current Medications Current Medications: Active Medications Acetaminophen (Tylenol) 650 mg PO Q4HR PRN PRN Reason: Pain or Fever > 38C (100.4F) Last Admin: 06/24/20 01:35 Dose: 650 mg Documented by: Amlodipine Besylate (Norvasc) 5 mg PO DAILY [facility] Last Admin: 06/24/20 10:32 Dose: 5 mg Documented by: Aspirin (Ecotrin) 81 mg PO BID [facility] Last Admin: 06/24/20 08:31 Dose: 81 mg Documented by: Bisacodyl (Dulcolax Supp) 10 mg VA Q12H PRN PRN Reason: Constipation Last Admin: 06/14/20 22:23 Dose: 10 mg Documented by: Calcium Citrate () 250 mg PO BID [facility] Last Admin: 06/24/20 08:32 Dose: 250 mg Documented by: Cholecalciferol (Vitamin D3) 50 mcg PO DAILY [facility] Last Admin: 06/24/20 08:30 Dose: 50 mcg Documented by: Docusate Sodium (Colace 250mg Capsule) 250 - 500 mg PO DAILY [facility] Last Admin: 06/24/20 10:32 Dose: Not Given Documented by: Ferrous Sulfate (Feosol) 325 mg PO BIDWM [facility] Last Admin: 06/24/20 08:32 Dose: 325 mg Documented by: Hydralazine HCl (Apresoline Inj) 10 mg IVP Q4H PRN PRN Reason: Hypertensive Emergency Hydromorphone HCl (Dilaudid Inj Syringe) 0.2 mg IVP Q2H PRN PRN Reason: Pain 8 to 10 Sodium Chloride (Normal Saline 0.9%) 1,000 mls @ 85 mls/hr IV .[id number] [facility] Last Admin: 06/24/20 10:31 Dose: 85 mls/hr Documented by: Lisinopril (Zestril) 20 mg PO BID [facility] Last Admin: 06/24/20 08:34 Dose: 20 mg Documented by: Memantine (Namenda) 10 mg PO BID [facility] Last Admin: 06/24/20 08:30 Dose: 10 mg Documented by: Metoprolol Tartrate (Lopressor) 25 mg PO BID [facility] Last Admin: 06/24/20 08:34 Dose: 25 mg Documented by: Ondansetron HCl (Zofran Inj) 4 mg IVP Q6HR PRN PRN Reason: Nausea / Vomiting Oxycodone HCl (Roxicodone) 2.5 mg PO Q4HR PRN PRN Reason: PAIN 5-7 Pantoprazole Sodium (Protonix) 40 mg PO QDAC [facility] Last Admin: 06/24/20 06:25 Dose: 40 mg Documented by: Polyethylene Glycol (Miralax) 17 gm PO DAILY [facility] Last Admin: 06/24/20 10:32 Dose: Not Given Documented by: Quetiapine Fumarate (Seroquel) 50 mg PO QPM [facility] Last Admin: 06/23/20 21:37 Dose: 50 mg Documented by: Quetiapine Fumarate (Seroquel) 25 mg PO DAILY [facility] Last Admin: 06/24/20 08:31 Dose: 25 mg Documented by: Senna (Senokot) 8.6 - 17.2 mg PO BID [facility] Last Admin: 06/24/20 10:32 Dose: Not Given Documented by: Sodium Chloride (Normal Saline Flush 0.9%) 10 ml IVP PRN PRN PRN Reason: NEEDED PER PROVIDER ORDERS Last Admin: 06/15/20 05:24 Dose: 10 ml Documented by: Sodium Chloride (Normal Saline Flush 0.9%) 10 ml IVP 0100,0900,1700 [facility] Last Admin: 06/24/20 10:32 Dose: Not Given Documented by: Tamsulosin HCl (Flomax) 0.4 mg PO DAILY [facility] Last Admin: 06/24/20 08:31 Dose: 0.4 mg Documented by: Memantine HCl [Namenda] 10 mg PO BID 01/24/18 lisinopriL [Lisinopril] 20 mg PO BID 01/24/18 QUEtiapine [SEROquel] 25 mg PO DAILY 05/19/19 Acetaminophen [Tylenol] 325 mg PO PRN PRN 06/12/20 QUEtiapine [SEROquel] 50 mg PO QPM 06/12/20
[2020-06-24] MEDS ORDERED: POTASSIUM CHLORIDE 20 MEQ TABLET PO ONE (17:00)
[2020-06-24] MEDS: QUEtiapine 100 MG TABLET PO SCH (19:58)
[2020-06-25] MEDS: PANTOPRAZOLE 40 MG TABLET PO SCH (05:39)
[2020-06-25 06:24] LABS: BASOPHILS % (AUTO) 0.2 %; EOSINOPHILS # (AUTO) 0.2 10^3/uL (0.0-0.7); EOSINOPHILS % (AUTO) 2.5 %; HGB - HEMOGLOBIN 9.1 g/dL (12.0-16.0); LYMPHOCYTES # (AUTO) 1.1 10^3/uL (1.5-3.5); MEAN CORPUSCULAR HEMOGLOBIN 31.5 pg (27.0-31.0); MEAN CORPUSCULAR VOLUME 95.5 fL (81.0-99.0); MEAN PLATELET VOLUME 10.8 fL (7.9-10.8); NEUTROPHILS # (AUTO) 5.7 10^3/uL (1.5-6.6); NEUTROPHILS % (AUTO) 70.3 %; PLT - PLATELET COUNT 442 10^3/uL (130-450); RED BLOOD COUNT 2.89 10^6/uL (4.20-5.40); RED CELL DISTRIBUTION WIDTH 15.2 % (12.0-15.0); WHITE BLOOD COUNT 8.1 x10^3/uL (4.8-10.8)
[2020-06-25 06:30] LABS: CALCIUM 8.1 mg/dL (8.5-10.3); CREATININE 0.7 mg/dL (0.4-1.0)
[2020-06-25] MEDS: SODIUM CHLORIDE 0.9% 1,000 ML IV SCH (07:28)
[2020-06-25] MEDS ORDERED: POTASSIUM CHLORIDE 20 MEQ TABLET PO ONE (08:59)
--- NOTE | 2020-06-25 09:04 | Discharge Plan ---
Discharge Plan for SNF / [facility] - Discharge Plan And Transition Orders Problem Reviewed?: Yes Disposition: 50 Hospice/Home DC/Xfer Condition: Poor Allergies and Adverse Reactions: Allergies Allergy/AdvReac Type Severity Reaction Status Date / Time No Known Drug Allergies Allergy Verified 06/11/20 19:53 Health Concerns: This patient has dementia and was admitted after a fall and diagnosed with a hip fracture. At admission she tested Covid positive. The family did consent to her having hip surgery, which was done and was successful. Following that, she had complications with fever and oxygen desaturation related to her Covid infection. Eventually the oxygen was weaned down to off. The patient was seen by Physical Therapy after the hip surgery and was unable to progress, or cooperate, and had behavioral problem. Her evaluation showed that the patient had such severe dementia that she was not "skillable" to attend PT rehab at a SNF. Finally pt's DPOA and family request hospice care for pt. Plan of Treatment: As above, upon return to [facility] for hospice care. Care Goals: quality of life, comfortable and hospice care Assessment: Written instructions are given discharge to the facility. - SNF / [facility] Transition Orders Admit to (Facility): [facility] Under the care of (Name): Dr. Coates Discharge Diagnosis: hospice care, advanced dementia, Covid 19 virus detected, fracture of left femoral neck, anemia, HTN, afib paroxysmal, hypokalemia, Medicare Certification Statement: I certify that [facility] is medically necessary on a continuing basis for any of the conditions for which she/he is receiving care during hospitalization. Notify PCP of admission and forward orders to primary provider for signature. Other Notification Orders: Call PCP immediately if patient develops dyspnea, chest pain/tightness or edema. Additional Bowel Program Orders: If no BM after 2 days, nurse may give M.O.M. 30ml PO PRN and/or ducolax Supp 1 OK and/or PIPPA 250mg P.O., and/or senna 1-2 tabs PO. On day 3 nurse may give repeat above order until residents constipation is resolved. Treatments & Other Orders: followup with hospice care Medication Orders: PLEASE REFER TO THE DISCHARGE MEDICATION LIST. Insulin Orders?: No - Medications New Prescriptions: LORazepam [Ativan] 0.5 mg PO Q6H PRN #10 tablet PRN Reason: Anxiety Morphine Sulfate [Morphine Sulf Oral (Roxanol)] 5 mg PO Q4H PRN #30 ml PRN Reason: Pain/Dyspnea - Diet Type: Geriatric Texture: Regular Liquids: Thin - Therapies | Activity Additional Instructions: followup with hospice care
[2020-06-25] MEDS: TAMSULOSIN 0.4 MG CAPSULE PO SCH (09:19)
[2020-06-25] MEDS: QUEtiapine 25 MG TABLET PO SCH (09:19)
[2020-06-25] MEDS: MEMANTINE 5 MG TABLET PO SCH (09:19)
[2020-06-25] MEDS: ASPIRIN EC 81 MG TABLET PO SCH (09:19)
[2020-06-25] MEDS: CALCIUM CITRATE 250 MG TABLET PO SCH (09:19)
[2020-06-25] MEDS: METOPROLOL TARTRATE 25 MG TABLET PO SCH (09:20)
[2020-06-25] MEDS: amLODIPine 5 MG TABLET PO SCH (09:20)
[2020-06-25] MEDS: lisinopriL 20 MG TABLET PO SCH (09:20)
[2020-06-25] MEDS: CHOLECALCIFEROL 25 MCG TABLET PO SCH (09:20)
--- NOTE | 2020-06-25 09:21 | DISCHARGE SUMMARY ---
Discharge Summary Admit Date: 06/11/20 Discharge Date: 06/25/20 Discharging Provider: Jeremy Garcia Primary Care Provider: Dr. Fried Condition at Discharge: Poor Discharge Disposition: 50 Hospice/Home DC/Xfer Discharge Facility Name: [facility] - DIAGNOSES Discharge Diagnoses with Status of Each Condition: (1) Advanced dementia patient hx of advanced dementia, and has been very confused in hospital, kick or push PT away with initial movements. pt was determine she is not "skillable" due to her level of dementia. Pt's DPOA and family agreed hospice care for pt. Patient was DC to [facility] and to follow-up with hospice care in the afternoon (2) Fracture of femoral neck, left, closed PT/OT evaluated and determined She is not rehabable due to cognitive impairment from dementia. follow-up with hospice care (3) COVID-19 virus detected Patient was detected positive for COVID-19 before admission, patient continued have 2 time positive COVID-19 in hospital. Patient had several days with low degree fever. She has no more fever for fours days now, O2 sat is stable. (4) Anemia stable (5) Hypertension Stable (6) Atrial flutter, paroxysmal Stable (7) Hypokalemia K is 3.4 today. it was replaced. - HPI History of Present Illness: This is a 80-year-old female with a past medical history significant for advanced dementia, hypertension who presents today from [facility] memory care unit after she had a fall this afternoon as well as a low-grade temperature of 99.5F. History is obtained from the emergency department provider, EMR and the patient's son. The patient has advanced dementia and is unable to provide a history. The patient's son, Richard, lives in [place] but he was able to see the patient last week. He states she has had dementia for a few years now and has had a rapid decline. He states that she has been more sleepy over the past week or so and today he was informed by [facility] that she fell this afternoon. He states that at baseline, his mother will recognize him and the family but she is not able to participate in a meaningful conversation like she has been in the past. She has very poor memory and will forget things after 10 seconds. He does not believe that she knows where she lives and she deftly does not know the year or month. He reports she may have had a mini stroke a few years ago otherwise is pretty healthy except for dementia and hypertension. He does not believe that she has any history of coronary artery disease, diabetes, strokes. She has never complained of chest pain or dyspnea. He states she ambulates independently and is pretty active from a physical standpoint. She does have a POLST form which states that she is a DNR with limited interventions and focus on comfort. He confirms that she is a DNR. Patient does complain of left leg pain and will grimace and shout out in pain whenever her left lower extremity is examined. He has not answer any of my other questions and is unable to provide a meaningful history. In the emergency department, she is found to be afebrile temperature of 37.1 C. Her heart rate was in the 90s. Her blood pressure was 158/89. She was tachypneic with a respiratory rate of 22 and saturating 98% on room air. Her labs are significant for an anion gap of 18 and a creatinine of 1.2. Lactic acid was 2.2. Troponin was within normal limits. Urinalysis was unremarkable. Left hip x-rays was concerning for a left femoral neck fracture. This was confirmed on CT of the abdomen and pelvis. This was discussed with orthopedic surgery who recommended admission and therefore medicine was consulted. - CONSULTS | PROCEDURES Consultations: Dr. Rodriguez, and Dr. Coates Procedures: left hip repair and hospice care - HOSPITAL COURSE Hospital Course: Patient was admitted for Evaluation of a fall and left hip fracture. Patient was detected positive for COVID-19 before admission, patient continued have 2 time positive COVID-19 in hospital. Patient had her left hip repaired by orthopedic surgeon. Unfortunately patient continues have low degree fever for several days, chest x-ray suggests patient had a COVID-19 infection pattern. Patient stopped low degree fever 4 days ago. Patient continue to have stabilized respiratory status. Patient has no cough or obviously respiratory distress in the hospital. Because of patient advanced dimension, patient has been confused in the hospital, and Kick and push physical therapist and Occupational therapist evaluation and treatment for her, Patient was determined unskilled due to her le zamzam of dementia. Patient's DPOA and her family was updated pt's medical conditions consistently. Patient DPOA make a decision for hospice for patient. Patient was discharged to [facility] with her , he is positive Covid 19 as well, with hospice care. - ALLERGIES Allergies/Adverse Reactions: Allergies Allergy/AdvReac Type Severity Reaction Status Date / Time No Known Drug Allergies Allergy Verified 06/11/20 19:53 - MEDICATIONS Home Medications: Ambulatory Orders Medication Instructions Recorded Confirmed Memantine HCl [Namenda] 10 mg PO BID 01/24/18 06/12/20 QUEtiapine [SEROquel] 25 mg PO DAILY 05/19/19 06/12/20 QUEtiapine [SEROquel] 50 mg PO QPM 06/12/20 06/12/20 LORazepam [Ativan] 0.5 mg PO Q6H PRN #10 tablet 06/25/20 Morphine Sulfate [Morphine Sulf 5 mg PO Q4H PRN #30 ml 06/25/20 Oral (Roxanol)] - PHYSICAL EXAM AT DISCHARGE General Appearance: positive: No acute distress, Alert. negative: Lethargic Eyes Bilateral: positive: Normal inspection, No lid inflammation ENT: positive: ENT inspection nml. negative: Purulent nasal drainage Neck: positive: Nml inspection, Trachea midline. negative: Tracheal deviation Respiratory: positive: Chest non-tender, No respiratory distress, Rales. negative: Breath sounds nml, Wheezes Cardiovascular: positive: Regular rate & rhythm, No murmur. negative: T achycardia, Bradycardia, Systolic murmur Peripheral Pulses: positive: 2+ Abdomen: positive: Non-tender, Nml bowel sounds, No distention. negative: Te nderness, Guarding Back: positive: Nml inspection Skin: positive: Color nml, No rash, Warm, Dry. negative: Cyanosis, Diaphoresis Extremities: positive: Other (pt's left hip with surgery dressing but without infection or drainage. ). negative: Calf tenderness Neurologic/Psychiatric: positive: Sensation nml. negative: Weakness, Sensory loss, Facial droop, Slurred/abnml speech - LABS Result Diagrams: 06/25/20 06:00 06/25/20 06:00 - SEPSIS Current Stage of Sepsis: Ruled out - FOLLOW UP Follow Up: followup with hospice care - TIME SPENT Time Spent in Discharge (Minutes): 30
[2020-06-25] MEDS: FERROUS SULFATE 325 MG TABLET PO SCH (09:24)
[2020-06-25 09:31] VITALS: BP 162/83
== END 2020-06-25 10:00 | disposition hospice, home (50) | DRG 521 ==
LOC: EDUNIT# → ED 19:29 → MS3 21:23
PROVIDERS: ADMIT Internal Medicine; ATTEND Nurse Practitioner Gerontology
PROC: 0SRS019 Replacement of Left Hip Joint, Femoral Surface with Metal Synthetic Substitute, Cemented, Open Approach (ICD-10-PCS; principal; 2020-06-11)
DX: S72.092A Other fracture of head and neck of left femur, initial encounter for closed fracture (principal); U07.1 COVID-19; J96.01 Acute respiratory failure with hypoxia; R50.9 Fever, unspecified; I48.91 Unspecified atrial fibrillation; I48.92 Unspecified atrial flutter; F03.90 Unspecified dementia, unspecified severity, without behavioral disturbance, psychotic disturbance, mood disturbance, and anxiety; D62 Acute posthemorrhagic anemia; F03.91 Unspecified dementia, unspecified severity, with behavioral disturbance; F05 Delirium due to known physiological condition; M81.0 Age-related osteoporosis without current pathological fracture; E87.6 Hypokalemia; D50.9 Iron deficiency anemia, unspecified; R33.9 Retention of urine, unspecified; W19.XXXA Unspecified fall, initial encounter; Y92.099 Unspecified place in other non-institutional residence as the place of occurrence of the external cause; I10 Essential (primary) hypertension; Z74.09 Other reduced mobility; Z66 Do not resuscitate; Z51.5 Encounter for palliative care; Z79.899 Other long term (current) drug therapy; Z86.73 Personal history of transient ischemic attack (TIA), and cerebral infarction without residual deficits
CPT/HCPCS: 36415; 51701; 71045; 72170; 73552; 74177; 80048; 80053; 81001; 82607; 82728; 83540; 83605; 83615; 83735; 84100; 84443; 84466; 84484; 85014; 85018; 85025; 85045; 85610; 87040; 87077; 87181; 87631; 93005; 97110; 97162; 97166; 97530; 99285; A9270; J3370; J3489; J7040; J7120; Q9967; V2787; 0202U; 81599; 86769; 87086

== ENCOUNTER 2020-06-25 10:04 | Outpatient (CLI) | payer MEDICARE | END 2020-06-25 10:05 | disposition home or self-care (01) | LOC: EMS 10:04 | PROVIDERS: ATTEND Surgery | DX: F03.90 Unspecified dementia, unspecified severity, without behavioral disturbance, psychotic disturbance, mood disturbance, and anxiety (principal); Z74.01 Bed confinement status | CPT/HCPCS: A0425; A0428 ==